=== PATIENT | female | born 1930 | race Caucasian/White ===

== ENCOUNTER → 2016-07-09 09:47 | Outpatient (CLI) | payer MEDICARE, BC ==
[2014-08-05 12:52] VITALS: BMI 23.7
[~2016-07-09 09:47] MED LIST: ALDACTONE25 MG PO; ATIVAN0.5 MG PO; ATIVAN1 MG PO; BAYER CHEWABLE81 MG PO; CATAPRES0.1 MG PO; CATAPRES0.2 MG PO; COUMADIN3 MG PO; COZAAR100 MG PO; COZAAR50 MG PO; ELIQUIS2.5 MG PO; FLAGYL 500500 MG/100 IV; FLAGYL500 MG PO; FLORAJEN3 CAPS460 MG PO; GEMFIBROZIL600 MG PO; HYDROCODON-ACE1 EAC7 PO; K-DUR20 MEQ PO; LANOXIN125 MCG PO; LASIX20 MG PO; LASIX40 MG PO; LOPRESSOR25 MG PO; MUCINEX600 MG PO; NORVASC10 MG PO; NORVASC2.5 MG PO; ONDANSETRON4 MG/2 M3 IV; PEPCID20 MG PO; SODIUM CL 0.91000 ML IV; TYLENOL W/CODEI1 TAB PO; VITAMIN D50000 UNIT PO; ZOFRAN4 MG PO; ZOLOFT50 MG PO; ZYLOPRIM100 MG PO
== END | disposition home or self-care (01) ==
LOC: D.CT 07-07 11:30
DX: R93.8 Abnormal findings on diagnostic imaging of other specified body structures (principal)

== ENCOUNTER 2016-07-18 10:29 | Inpatient (IN) | payer MEDICARE, BC ==
[~2016-07-18] VITALS: Ht 162.6 cm; Wt 59.8 kg
[2016-07-18] VITALS (14 sets, daily range): BP systolic 87–124; BP diastolic 32–88; BMI 22.3
[~2016-07-18 10:29] MED LIST changes: -ALDACTONE25 MG PO; -CATAPRES0.2 MG PO; -ELIQUIS2.5 MG PO; -FLAGYL 500500 MG/100 IV; -FLAGYL500 MG PO; -FLORAJEN3 CAPS460 MG PO; -HYDROCODON-ACE1 EAC7 PO; -LASIX20 MG PO; -MUCINEX600 MG PO; -NORVASC2.5 MG PO; -ONDANSETRON4 MG/2 M3 IV; -PEPCID20 MG PO; -SODIUM CL 0.91000 ML IV; -TYLENOL W/CODEI1 TAB PO; -ZOFRAN4 MG PO; -ZOLOFT50 MG PO
[2016-07-18 11:12] LABS: BASOPHILS 0.3 % (0.0-2.0); EOSINOPHILS 2.9 % (0-7); HEMATOCRIT 42.3 % (36.0-48.0); HEMOGLOBIN 14.1 g/dL (12-16); IMMATURE GRANULOCYTES 2.7 % (0-5); LYMPHOCYTES 19.7 % (15-50); MCH 32.3 pg (26.0-34.0); MCHC 33.3 g/dL (31.0-37.0); MEAN PLATELET VOLUME 10.6 fL (7.4-10.4); MONOCYTES 5.8 % (2-11); NEUTROPHILS 68.6 % (40-80); RBC 4.36 10x6/uL (4.00-5.40); RDW 14.6 % (11.5-14.5); WBC 14.8 10x3/uL (4.8-10.8)
[2016-07-18 11:15] LABS: PLATELET COUNT 407 10x3/uL (130-400)
[2016-07-18 11:39] LABS: APPEARANCE HAZY (CLEAR); COLOR YELLOW (YELLOW)
[2016-07-18 11:40] LABS: ALBUMIN 3.1 g/dL (3.4-5.0); ALKALINE PHOSPHATASE 144 U/L (46-116); ALT (SGPT) 19 U/L (10-68); AMYLASE - SERUM 127 U/L (25-115); BILIRUBIN - TOTAL 0.33 mg/dL (0.2-1.3); CALC OSMOLALITY 300 mosm/kg (275-300); CALCIUM 9.3 mg/dL (8.5-10.1); CARBON DIOXIDE 19.1 mmol/L (21.0-32.0); CHLORIDE - SERUM 95 mmol/L (98-107); CREATININE - SERUM 4.3 mg/dL (0.6-1.3); GLUCOSE 115 mg/dL (74-106); LIPASE 937 U/L (73-393); PROTEIN - SERUM 8.6 g/dL (6.4-8.2); SODIUM 129 mmol/L (136-145); UREA NITROGEN 126 mg/dL (7-18); eGFR NON AFRICAN AMERICAN 10 mL/min (90-120)
[2016-07-18 11:40] LABS: BILIRUBIN NEGATIVE (NEGATIVE); GLUCOSE NEGATIVE (NEGATIVE); KETONE NEGATIVE (NEGATIVE); LEUKOCYTE ESTERASE NEGATIVE (NEGATIVE); NITRITE NEGATIVE (NEGATIVE); PROTEIN 1+ mg/dL (NEGATIVE); SPECIFIC GRAVITY 1.015 (1.005-1.020); UROBILINOGEN NORMAL (NORMAL)
[2016-07-18 11:41] LABS: BACTERIA FEW /hpf (NONE SEEN); EPITHELIAL CELLS 0-5 /hpf (0-5); RED CELLS - URINE 0-5 /hpf (0-5); WHITE CELLS - URINE NSEEN /hpf (0-5); YEAST <1+ /hpf (NONE SEEN)
[2016-07-18 13:42] LABS: CREATINE KINASE 66 UL (21-215); MAGNESIUM - SERUM 2.8 mg/dL (1.8-2.4); PRO BNP 1531 pg/mL (0-450)
[2016-07-18 13:43] LABS: TROPONIN-I < 0.017 ng/mL (0.000-0.060)
[2016-07-18 13:45] LABS: INR 13.01 (0.85-1.17); PROTIME 101.6 SECONDS (11.6-15.0)
--- NOTE | 2016-07-18 14:34 | NUR ---
Patient Name: FRANK RUBIO Admission Status: ER Accout number: [id number] Admission Date: 07-18-2016 : 1928 Admission Diagnosis: Hyperkalemia,ARNOLD Attending: GABRIEL Current LOS: 5 Anticipated DC Date: 07/23/16 Planned Disposition: Return to [facility] with [facility] Primary Insurance: MEDICARE A & B Discharge Planning Comments: Cm met with patient to complete initial discharge planning assessment. Patient gave consent to complete assessment. Patient reports she lives at [facility]. She is independent in her care at home and has a golf cart she uses to get to and from the dining room for her meals. She does not use any assistive devices for ambulation at this time. She has a walker and cane that was her late husbands that she feels she may have to start using. Patient is currently using [facility] and would like this resumed at discharge. Patient plans to return to [facility] at discharge. CM will continue to follow and assist with dc plan/needs. Lockstitcher: Judith Araya RN, [facility] [phone] Is the patient Alert and Oriented? Yes * How many steps to enter\exit or inside your home? 0 * PCP Dr. Girard * Pharmacy [facility] * Preadmission Environment Assisted Living * Facility Name [facility] * ADLs Independent * Equipment Cane Rolling Walker * List name and contact numbers for known caregivers / representatives who currently or will assist patient after discharge: Murali orta - [phone] or [phone] * Community resources currently utilized Home Health * Please name any agencies selected above. [facility] * Additional services required to return to the preadmission environment? No * Can the patient safely return to the preadmission environment? Yes * Has this patient been hospitalized within the prior 30 days at any hospital? No
--- NOTE | 2016-07-18 14:53 | NUR ---
PT ARRIVED IN ROOM FROM ER VIA STRETCHER. ASSISTED OVER TO BED AND PLACED ON ICU MONITORS. PT IN CONTROLLED A-FIB RATE 57. PT ORIENTED TO ROOM AND CALL LIGHT. ASSESSMENT COMPLETED. VSS AT THIS TIME. BED ALARM ON. BILATERAL SCDs APPLIED TO LOWER EXT.
[2016-07-18] MEDS ORDERED: GEMFIBROZIL600 MG PO (15:43)
[2016-07-18] MEDS ORDERED: CATAPRES0.2 MG PO (15:46)
[2016-07-18] MEDS ORDERED: NORVASC10 MG PO (15:50)
[2016-07-18] MEDS ORDERED: ALDACTONE25 MG PO (15:51)
[2016-07-18] MEDS ORDERED: TYLENOL W/CODEI1 TAB PO (15:52)
--- NOTE | 2016-07-18 16:33 | NUR ---
PT UP TO BEDSIDE COMMODE. VOIDED WITHOUT DIFFICULTY.
--- NOTE | 2016-07-18 16:41 | NUR ---
NOTIFIED DR. STRINGER OF CONSULT. NO NEW ORDERS RECEIVED. HE STATES HE WILL COME LATER TODAY TO READ THE ECHO AND TO CALL WITH ANY CARDIAC CHANGES.
[2016-07-18 17:10] LABS: CREATININE - URINE 30.8 mg/dL (30-125); PROTEIN - URINE 36.7 mg/dL (0.0-11.9)
--- NOTE | 2016-07-18 17:31 | NUR ---
PAGED DR. MATAMOROS FOR RENAL CONSULT FOR SECOND TIME.
[2016-07-18 17:44] LABS: ANION GAP 19.7 mmol/L (8-16); CARBON DIOXIDE 18.8 mmol/L (21.0-32.0); CREATININE - SERUM 3.9 mg/dL (0.6-1.3)
[2016-07-18 17:53] LABS: POTASSIUM - SERUM 6.5 mmol/L (3.5-5.1)
--- NOTE | 2016-07-18 19:00 | NUR ---
REPORT RECIEVED, INITIAL ASSESSMENT COMPLETE, PLEASE SEE FLOW SHEETS FOR DETAILS. LUNG SOUNDS CLEAR. S1S2 AUSCULTATED, NRS NOTED. BOWEL SOUNDS ACTIVE X4 QUADRANTS. PPP. GETS UP TO CAMODE WITH ASSISTANCE. WEARING GLASSES. A&O X4. DENIES PAIN/NEEDS ATT. VSS, BED LOW AND LOCKED, CALL LIGHT IN REACH. SCD'S ON AND RUNNING. WILL CONTINUE TO MONITOR.
--- NOTE | 2016-07-18 20:45 | NUR ---
DR MATAMOROS ON UNIT, NEW ERS RECIEVED. WILL CONTINUE TO MONITOR.
--- NOTE | 2016-07-18 21:15 | NUR ---
PT USED BEDPAN, HAD A DIARRHEA EPISODE AND URINATED. VSS ATT, BED LOW AND LOCKED WITH CALL LIGHT IN REACH. WILL CONTINUE TO MONITOR.
--- NOTE | 2016-07-18 22:12 | NUR ---
PT GOT UP TO BEDSIDE CAMODE. A FULL LINEN CHANGE WAS PROVIDED. ALSO WHILE PT ON CAMODE DID FULL SPONGE BATH WITH ASSISTANCE. HAD LARGE DIARRHEA STOOL. APPROX 1500ML. WITH LITTLE ASSISTANCE BACK TO BED. PT TIRED. LIGHTS TURNED DOWN. BED LOW AND LOCKED. CALL LIGHT IN REACH. VSS, WILL CONTINUE TO MONITOR.
--- NOTE | 2016-07-18 22:43 | NUR ---
Spoke with granddaughter that provided password and gave update.
--- NOTE | 2016-07-18 23:00 | NUR ---
REASSESSMENT COMPLETE, PLEASE SEE FLOW SHEETS FOR DETAILS. NO CHANGES NOTED. VSS, BED LOW AND LOCKED, CALL LIGHT IN REACH. WILL CONTINUE TO MONITOR.
[2016-07-19] VITALS (24 sets, daily range): BP systolic 83–143; BP diastolic 37–89; Ht 162.6 cm; Wt 59.8 kg
--- NOTE | 2016-07-19 01:07 | NUR ---
Patient resting. No S&S of acute distress noted. VSS, bed low and locked, call light in reach. Will continue to monitor.
--- NOTE | 2016-07-19 03:00 | NUR ---
REASSESSMENT COMPLETE, PLEASE SEE FLOW SHEETS FOR DETAILS. PT, WITH MINIMAL ASSISTANCE, UP TO BEDSIDE CAMODE. LARGE DIARRHEA BM APPROX. 400ML. BACK TO BED WITH MINIMAL ASSISTANCE. DENIES PAIN/NEEDS ATT. VSS, BED LOW AND LOCKED, CALL LIGHT IN REACH. WILL CONTINUE TO MONITOR.
[2016-07-19 04:07] LABS: BASOPHILS 0.2 % (0.0-2.0); HEMATOCRIT 36.8 % (36.0-48.0); IMMATURE GRANULOCYTES 1.7 % (0-5); LYMPHOCYTES 9.9 % (15-50); MCH 31.3 pg (26.0-34.0); MCHC 32.6 g/dL (31.0-37.0); MCV 96.1 fL (80.0-100.0); MEAN PLATELET VOLUME 10.3 fL (7.4-10.4); MONOCYTES 6.8 % (2-11); NEUTROPHILS 79.4 % (40-80); RBC 3.83 10x6/uL (4.00-5.40); RDW 14.7 % (11.5-14.5)
[2016-07-19 04:10] LABS: PLATELET COUNT 302 10x3/uL (130-400); WBC 10.7 10x3/uL (4.8-10.8)
[2016-07-19 04:34] LABS: ALBUMIN 2.7 g/dL (3.4-5.0); ANION GAP 17.3 mmol/L (8-16); BILIRUBIN - TOTAL 0.2 mg/dL (0.2-1.3); CALCIUM 9.2 mg/dL (8.5-10.1); CARBON DIOXIDE 23.3 mmol/L (21.0-32.0); CREATININE - SERUM 3.1 mg/dL (0.6-1.3); POTASSIUM - SERUM 4.6 mmol/L (3.5-5.1); PROTEIN - SERUM 6.8 g/dL (6.4-8.2)
--- NOTE | 2016-07-19 05:00 | NUR ---
PT RESTING. NO S&S OF ACUTE DISTRESS NOTED. VSS, BED LOW AND LOCKED, CALL LIGHT IN REACH. WILL CONTINUE TO MONITOR.
[2016-07-19 07:18] LABS: APTT 171.9 SECONDS (22.8-39.4); INR 15.93 (0.85-1.17); PROTIME 119.4 SECONDS (11.6-15.0)
--- NOTE | 2016-07-19 08:15 | NUR ---
PT SITTING UP IN BED EATING BREAKFAST. PT IS ALERT AND CONVERSANT. DENIES NEEDS AT THIS TIME. AWAITING ON ORAL VITAMIN K FROM PHARMACY TO GIVE TO PATIENT.
--- NOTE | 2016-07-19 08:50 | NUR ---
PT ASSISTED UP TO BEDSIDE TOILET. MINIMAL ASSIST REQUIRED. PT HAD SMALL AMOUNT OF DIARRHEA WITH URINATION.
--- NOTE | 2016-07-19 09:15 | NUR ---
FAMILY AT BEDSIDE. PT AWAKE AND CONVERSANT. ASKS TO HAVE PILLOW PLACED AT BACK TO SUPPORT HIPS.
--- NOTE | 2016-07-19 11:55 | NUR ---
PT ASSISTED UP TO TOILET AT BEDSIDE. THEN TRANSFERRED TO CHAIR AT BEDSIDE FOR LUNCH.
--- NOTE | 2016-07-19 12:30 | NUR ---
PT ASSISTED BACK TO BED FROM CHAIR. ATE ABOUT 40% OF LUNCH TRAY.
--- NOTE | 2016-07-19 12:31 | NUR ---
REPORTING CONSULTANT HERE TO DRAW PT, INR
--- NOTE | 2016-07-19 12:47 | NUR ---
PT HAS STARTED TO EXHIBIT SIGNS OF PVC'S. WILL ALERT DR MARR WHEN SPEAK TO HIM REGARDING PT/INR RESULTS.
[2016-07-19 13:14] LABS: APTT 71.6 SECONDS (22.8-39.4); INR 5.76 (0.85-1.17); PROTIME 52.9 SECONDS (11.6-15.0)
--- NOTE | 2016-07-19 13:17 | NUR ---
CALLED DR MARR OFFICE. SPOKE WITH SUKUMAR. GAVE HER RECENT PT/INR AND PTT RESULTS. ALSO ASKED HER TO PLEASE LET HIM KNOW THAT THE PT HAS STARTED HAVING PVC'S.
--- NOTE | 2016-07-19 13:46 | NUR ---
PT SLEEPING ON HER RIGHT SIDE. NO DISTRESS NOTED. WILL CONTINUE TO MONITOR. BED LOW. SIDE RAILS X2. CALL LIGHT IN REACH.
--- NOTE | 2016-07-19 13:54 | NUR ---
SPOKE WITH DR MARR ON PHONE REGARDING LAB AND PVC'S. IF PT CONTINUES TO HAVE AND ARE MORE THAN OCCASSIONAL, WANTS METOPROLOL STARTED AT 25MG BID. DR MATAMOROS HAS BEEN IN TO SEE PT. CHANGED D5 WITH BICARB TO 1/2NS AT 100ML/HR.
--- NOTE | 2016-07-19 17:03 | NUR ---
PT ASSISTED UP TO CHAIR AT BEDSIDE PER REQUEST. C/O FEELING TIRED AND WEAK. DINNER TRAY SET UP REQUESTED. DENIES ANY OTHER NEEDS AT THIS TIME. CALL LIGHT IN REACH.
--- NOTE | 2016-07-19 17:45 | NUR ---
PT ASSISTED UP TO TOILET. UNABLE TO GET URINE SPECIMEN DUE TO FECES CONTAMINATION.
--- NOTE | 2016-07-19 19:30 | NUR ---
REPORT RECEIVED AND CARE ASSUMED. INITIAL SHIFT ASSESSMENT PER FLOWSHEET. PT RESTING QUIETLY IN BED. ABLE TO MAKE NEEDS KNOWN. IS WEARING AN INCONTINENCE BRIEF BUT IS CONTINENT. UP TO BSC WITH MINIMAL ASSIST. BEING MONITORED PER STANDARD ICU PROTOCOL WITH ALL ALARMS SET. IVF AND LINES APPROPRIATLY DATED AND LABELED. BED IN LOW POSITION AND CALL LIGHT IN REACH
--- NOTE | 2016-07-19 20:50 | NUR ---
CALL RECEIVED FROM PT'S [id number], CARLOS, PASSWORD VERIFIED. UPDATE GIVEN AND QUESTIONS ANSWERED.
--- NOTE | 2016-07-19 21:15 | NUR ---
CALL PLACED TO DAUGHTER, RAD, PER REQUEST OF PT WHO IS VERY CONCERNED ABOUT HER WELL BEING SINCE RAD DID NOT COME FOR VISITATION. DAUGHTER CONFIRMED ALL IS WELL AND MESSAGE CONVEYED TO PT WHO EXPRESSED RELIEF AND THEN WENT BACK TO SLEEP. PT HAS BEEN SLEEPING MUCH OF THIS SHIFT
--- NOTE | 2016-07-19 23:00 | NUR ---
SHIFT REASSESSMENT COMPLETED SEE FLOWSHEET. PT LIGHTLY SLEEPING. ASSISTED PT WITH REPOSITIONING. NO OTHER REQUESTS.
[2016-07-20] VITALS (11 sets, daily range): BP systolic 109–150; BP diastolic 48–64
--- NOTE | 2016-07-20 01:00 | NUR ---
PT SLEEPING RESP REG AND NON-LABORED.
--- NOTE | 2016-07-20 03:00 | NUR ---
REASSESSMENT COMPLETE, NO CHANGES NOTED, PT RESTING AT THIS TIME, VSS, CALL LIGHT IN REACH
[2016-07-20 04:37] LABS: BASOPHILS 0.2 % (0.0-2.0); EOSINOPHILS 2.3 % (0-7); HEMATOCRIT 34.8 % (36.0-48.0); HEMOGLOBIN 11.1 g/dL (12-16); IMMATURE GRANULOCYTES 1.5 % (0-5); LYMPHOCYTES 17.8 % (15-50); MCH 30.7 pg (26.0-34.0); MCHC 31.9 g/dL (31.0-37.0); MCV 96.1 fL (80.0-100.0); MEAN PLATELET VOLUME 10.2 fL (7.4-10.4); MONOCYTES 7.7 % (2-11); NEUTROPHILS 70.5 % (40-80); PLATELET COUNT 257 10x3/uL (130-400); RBC 3.62 10x6/uL (4.00-5.40); RDW 14.1 % (11.5-14.5); WBC 10.3 10x3/uL (4.8-10.8)
[2016-07-20 04:58] LABS: ALBUMIN 2.6 g/dL (3.4-5.0); ANION GAP 14.7 mmol/L (8-16); BILIRUBIN - TOTAL 0.45 mg/dL (0.2-1.3); CALCIUM 8.7 mg/dL (8.5-10.1); CARBON DIOXIDE 24.1 mmol/L (21.0-32.0); PROTEIN - SERUM 6.5 g/dL (6.4-8.2)
[2016-07-20 05:02] LABS: CREATININE - SERUM 1.6 mg/dL (0.6-1.3); POTASSIUM - SERUM 3.8 mmol/L (3.5-5.1)
--- NOTE | 2016-07-20 06:32 | NUR ---
PT C/O OF NAUSEA, ORDERED ZOFRAN GIVEN
--- NOTE | 2016-07-20 07:00 | NUR ---
PT REPORT REC'D, PT CARE ASSUMED. PT RESTING WITH EYES CLOSED, NO C/O PAIN. VSS, AFIB CONTROLLED. RIGHT AC PIV WITH FLUIDS INFUSING, SEE FLOW SHEET. SHIFT ASSESSMENT COMPLETED, SEE FLOW SHEET. ROOM FREE OF CLUTTER, CALL LIGHT IN REACH. WILL CONTINUE TO MONITOR PT.
[2016-07-20 07:44] LABS: INR 1.47 (0.85-1.17); PROTIME 17.8 SECONDS (11.6-15.0)
--- NOTE | 2016-07-20 07:56 | NUR ---
DR. PERERA AT THE BEDSIDE, VSS, ALL QUESTIONS ANSWERED, WILL CONTINUE TO MONITOR PT.
--- NOTE | 2016-07-20 08:59 | NUR ---
SPOKE WITH PATIENT ABOUT DISCHARGE PLANS. SHE STATES THAT DR. MARTINEZ TOLD HER SHE COULD NOT STAY BY HERSELF ANY LONGER. SHE STATE THAT HE FEELS THAT SHE MAY HAVE TAKEN TO MUCH MEDICATION. PATIENT STATES SHE WANTS TO RETURN TO [facility]. SHE HAD [facility]. SHE STATES SHE WANTS TO GET SOMEONE TO OVERSEE HER MEDICATION. SHE DOES NOT WANT TO GO TO A SNF. PATIENT STATES HER DAUGHTER, RAD MITCHELL, WILL VISIT TODAY AND SHE WANTS TO SPEAK WITH HER ABOUT WHAT THEY CAN DO. I WILL ATTEMPT TO VISIT WITH HER DAUGHTER TODAY WHEN SHE COMES. DAUGHTER: RAD [phone] SON: GEN [phone] CM TO FOLLOW.
--- NOTE | 2016-07-20 09:15 | NUR ---
PT FAMILY AT THE BEDSIDE, ALL QUESTIONS ANSWERED, VSS. PT FAMILY REQUESTING THAT WE CALL DR. PERERA INFORMING HIM THAT THEY "FEEL THAT PT IS NOT ABLE TO DRIVE ANYMORE, PT WILL NOT LISTEN TO FAMILY, THEY WANT TO TELL PT THAT SHE DOES NOT NEED TO DRIVE." WILL INFORM DR. WOOD. NO FURTHER QUESTIONS OR CONCERNS. SRRN
--- NOTE | 2016-07-20 10:11 | NUR ---
CALLED 'S OFFICE, INFORMED DR. MARTINEZ OF PT'S FAMILY'S REQUEST. "WILL INFORM PT THAT SHE DOES NOT NEED TO DRIVE."-. INFORMED DR. MARTINEZ THAT PT WILL BE TRANSFERRING TO ROOM 1206.
--- NOTE | 2016-07-20 10:16 | NUR ---
I MET WITH PATIENT AND HER 3 CHILDREN. THEY UNDERSTAND THAT SHE WILL NEED ADDITIONAL SUPERVISION WITH HER MEDICATION. THEY WERE GIVEN INFORMATION ON AGENCY SITTERS TO ASSIST HER WITH HER MEDICATION ADMINISTRATION. THEY ASSURED ME THAT THEY WILL HIRE HELP TO ASSIST HER NEEDED. PATIENT WANTS TO RETURN TO [facility]. HER CHILDREN WANT HER TO RETURN THERE WITH ASSISTANCE. THEY TELL ME THAT SHE IS INDEPENDENT AND JUST NEEDS HELP WITH MEDICATION. THEY DONOT FEEL SHE NEEDS TO BE DRIVING AND WOULD LIKE FOR DR. MARTINEZ TO ADDRESS WITH HER. PATIENT IS MOVING TO FLOOR BED TODAY AND CM WILL FOLLOW.
--- NOTE | 2016-07-20 10:34 | NUR ---
PT REPORT CALLED TO EDUAR LI, PT TO TRANSFER VIA WHEELCHAIR TO ROOM 2138.
--- NOTE | 2016-07-20 10:51 | NUR ---
RECEIVED PATIENT REPORT FROM ICU. PATIENT TO ROOM VIA WC. PT HERE TO WALK PATIENT IN HALLWAY. PATIENT TOLERATED WELL.
--- NOTE | 2016-07-20 10:58 | NUR ---
TRANSFER VS 142/60 O2 98 P-67 T 97.3 R 24.
--- NOTE | 2016-07-20 12:32 | NUR ---
PT C/O BACK PAIN. STATES IT IS FROM LAYING IN BED. DECLINES NURSES OFFER TO CALL DR. MARTINEZ FOR PAIN MED ORDER. PT TAKES TYLENOL 3 AT HOME PRN. NURSE PLACED WARM BLANKET TO PT'S LOWER BACK. WILL CONT. TO MONITOR. PT DOES NOT WISH TO SIT UP IN CHAIR AT THIS TIME. CALL LIGHT WITH IN REACH. WILL CONT. TO MONITOR.
--- NOTE | 2016-07-20 15:49 | NUR ---
PT WITH DIARRHEA X2. DENIES NAUSEA AT THIS TIME. DENIES ABD PAIN. C/O GAS. WILL CONT. TO MONITOR.
--- NOTE | 2016-07-20 16:34 | NUR ---
PT'S IV LEAKING AND HAS CAME OUT. THIS NURSE ATTEMPTED TO RE-SITE TO LEFT ARM X2 AND WAS UNABLE. [place] RN TO ATTEMPT.
--- NOTE | 2016-07-20 18:18 | NUR ---
PT'S IV RE-SITED BY [place] LI WITH 24G TO LEFT HAND/THUMB. IVF SLOWED TO 50ML/HR TO ALLOW FOR SMALLER GAUGE CATH.
--- NOTE | 2016-07-20 19:30 | NUR ---
IN BED, AWAKE, ALERT, VOICES NO C/O PAIN AT THIS TIME. HOB UP SR UP X2, C/L IN REACH. UP WITH ASSIST TO BR, AMANDA WELL. LEFT THUMB IV SITE WITH 1/2 NS AT 50CC/HR VIA PUMP W/O DIFF. ON ROOM AIR, RESP UNLAB, TELEMETRY IN PLACE SHOWING HR SB. CONTINUE TO MONITOR. SCDS IN PLACE BILAT.
[2016-07-21] VITALS (7 sets, daily range): BP systolic 118–156; BP diastolic 40–66
--- NOTE | 2016-07-21 01:55 | NUR ---
EYES CLOSED, RESP UNLAB WITH NO S/S OF ACUTE DISTRESS NOTED. C/L IN REACH. CONTINUE TO MONITOR.
[2016-07-21 06:15] LABS: BASOPHILS 0.3 % (0.0-2.0); EOSINOPHILS 2.4 % (0-7); HEMATOCRIT 32.5 % (36.0-48.0); HEMOGLOBIN 10.4 g/dL (12-16); IMMATURE GRANULOCYTES 1.5 % (0-5); LYMPHOCYTES 13.8 % (15-50); MEAN PLATELET VOLUME 10.1 fL (7.4-10.4); PLATELET COUNT 242 10x3/uL (130-400); RBC 3.35 10x6/uL (4.00-5.40); RDW 13.9 % (11.5-14.5); WBC 9.3 10x3/uL (4.8-10.8)
[2016-07-21 06:29] LABS: ANION GAP 14.1 mmol/L (8-16); CALCIUM 8.4 mg/dL (8.5-10.1); CARBON DIOXIDE 22.4 mmol/L (21.0-32.0); MAGNESIUM - SERUM 1.6 mg/dL (1.8-2.4); POTASSIUM - SERUM 3.5 mmol/L (3.5-5.1)
[2016-07-21 06:50] LABS: INR 1.35 (0.85-1.17); PROTIME 16.6 SECONDS (11.6-15.0)
--- NOTE | 2016-07-21 07:40 | NUR ---
AM ROUNDING DONE WITH PATIENT LAYING ON RIGHT SIDE APPEARS TO BE SLEEPING. RESP ARE EVEN AND NON LABORED. FAMILY AT BEDSIDE AWAITING DR PERERA PER THEIR REPORT. ON HEART MONITOR SHOWING CAF, HR 65.LEFT THUMB IV OF 1/2 NS INFUSING AT 50 CC/HR. ON ROOM AIR. WILL CONTINUE TO MONITOR.
--- NOTE | 2016-07-21 08:41 | NUR ---
0810-ASSISTED PATIENT TO RESTROOM TO VOID, SOME DIARREHA. NO HAT IN TOLIET TO COLLECT SAMPLE, WILL PLACE ONE. ASSISTED BACK TO BED. DENIES ANY FURTHER NEEDS. 0826-COMPLAINTS OF NAUSEA PER FAMILY MEMBER. ZOFRAN GIVEN SLOW IVP. 0840-TO RADIOLOGY VIA WHEELCHAIR.
--- NOTE | 2016-07-21 08:52 | NUR ---
RETURNS FROM RADIOLOGY.
--- NOTE | 2016-07-21 09:21 | NUR ---
STOOL SENT TO LAB ORDERED.
--- NOTE | 2016-07-21 10:24 | NUR ---
INSTRUCTED TO PATIENT AND FAMILY MEMBERS THAT IF STOOL IS + FOR CDT, WILL BE PLACED IN ENTERIC ISOLATION, GOWN AND GLOVE, SOAP AND WATER HANDWASHING.
--- NOTE | 2016-07-21 13:15 | NUR ---
STILL PENDING ON RESULTS FROM STOOL. WILL INFORM FAMILY AND PATIENT WHEN RESUTLS IN, THIS IS AGAIN PASSED TO THE FAMILY.
--- NOTE | 2016-07-21 14:43 | NUR ---
CDT STILL PENDING. CALLED AND TALKED TO DOLORES IN ULTRASOUND TO SEE HOW MUCH LONGER BEFORE TEST CAN BE DONE. SHE SAID THAT SHE WAS DOWN FOR 4 BUT WOULD TRY AND MAKE IT SOONER. 1448-EMERGENCY LIGHT GOING OFF IN BATHROOM. WENT INTO ROOM AND PATIENT IS IN BATHROOM ON TOLIET. I ASKED HER HELPED HER TO THE RESTROOM AND SHE SAID SHE DID IT HERSLEF. I ASKED HER TO PLEASE USE HER CALL LIGHT FOR ASSISTANCE.
--- NOTE | 2016-07-21 15:29 | NUR ---
LAB TO CALL WITH + CULTURE ON CDT STOOL. PATIENT NOTIFIED AND PLACED IN ENTERIC ISOLATION.
--- NOTE | 2016-07-21 18:33 | NUR ---
DR PERERA TO CALL WITH NEW ORDERS.
--- NOTE | 2016-07-21 19:40 | NUR ---
PT LYING IN BED AWAKE, ASSESSMENT COMPLETED, NO ACUTE DISTRESS NOTED, DENIES NEEDS AT THIS TIME, SR'S UP, CL IN REACH, WILL MONITOR
--- NOTE | 2016-07-21 23:26 | NUR ---
LYING IN BED AWAKE, NO DISTRESS NOTED, SAFETY AND CONTACT PRECAUTIONS IN PLACE, CL IN REACH
[2016-07-22] VITALS: BP 132/57
--- NOTE | 2016-07-22 01:10 | NUR ---
RESTING WITH EYES CLOSED, RESP WITH EASE, NO ACUTE DISTRESS NOTED, SR'S UP, CL IN REACH
[2016-07-22 04:00] VITALS: BP 140/50
[2016-07-22 04:55] LABS: BASOPHILS 0.2 % (0.0-2.0); EOSINOPHILS 1.9 % (0-7); HEMATOCRIT 33.4 % (36.0-48.0); HEMOGLOBIN 10.6 g/dL (12-16); IMMATURE GRANULOCYTES 1.3 % (0-5); LYMPHOCYTES 12.4 % (15-50); MCH 30.5 pg (26.0-34.0); MCHC 31.7 g/dL (31.0-37.0); MCV 96.3 fL (80.0-100.0); MEAN PLATELET VOLUME 9.9 fL (7.4-10.4); MONOCYTES 7.1 % (2-11); NEUTROPHILS 77.1 % (40-80); PLATELET COUNT 283 10x3/uL (130-400); RBC 3.47 10x6/uL (4.00-5.40); RDW 13.8 % (11.5-14.5); WBC 10.3 10x3/uL (4.8-10.8)
[2016-07-22 05:20] LABS: ALBUMIN 2.7 g/dL (3.4-5.0); ANION GAP 13.8 mmol/L (8-16); BILIRUBIN - TOTAL 0.5 mg/dL (0.2-1.3); CALCIUM 8.6 mg/dL (8.5-10.1); CARBON DIOXIDE 22.8 mmol/L (21.0-32.0); MAGNESIUM - SERUM 1.6 mg/dL (1.8-2.4); PHOSPHOROUS 1.7 mg/dL (2.5-4.9); POTASSIUM - SERUM 3.6 mmol/L (3.5-5.1); PROTEIN - SERUM 6.4 g/dL (6.4-8.2)
--- NOTE | 2016-07-22 07:37 | NUR ---
IN ENTERIC ISOLATION. RESTING WITH EYES CLOSED ON RIGHT SIDE. RESP ARE EVEN AND NON LABORED. WILL CONTINUE TO FOLLOW.
[2016-07-22 07:49] VITALS: BP 126/43
--- NOTE | 2016-07-22 09:40 | NUR ---
IVOUT TO LEFT THUMB, RE-STIED TO LEFT HAND WITH 24 G X 1 STICK.
[2016-07-22 12:36] VITALS: BP 144/66
--- NOTE | 2016-07-22 12:41 | NUR ---
ASSISTED BACK TO BED FROM RESTROOM. PATIENT HAS BEEN SITTING UP SINCE LUNCH.
--- NOTE | 2016-07-22 14:16 | NUR ---
Nutrition follow-up: Diet: Renal ADA consistent CHO PO intake 25-50% of meals Labs reviewed Wt: 130# PT C.Diff + PO intake is poor at this time. RDN will order Nepro with meals to increase kcal/protein intake Following.
--- NOTE | 2016-07-22 15:25 | NUR ---
1325-CALLED DR PERERA OFFICE, SPOKE WITH DR PERERA AND RECEIVED NEW ORDERS.
[2016-07-22 16:21] VITALS: BP 151/57
--- NOTE | 2016-07-22 16:34 | NUR ---
VERBAL AND WRITTEN DISCHARGE INSTRUCTIONS GIVEN TO PATIENT AND SPOUSE. SALINE LOCK REMOVED WITH CATH TIP INTACT. DISCHARGED HOME ON PORTABLE OXYGEN TANK FROM HOME.
--- NOTE | 2016-07-22 18:21 | NUR ---
RESTING ON LEFT SIDE, APPEARS PAIN FREE. FAMILY MEMBER AT BEDSIDE, STILL IN ENTERIC ISOLATION.
[2016-07-22 20:00] VITALS: BP 126/53
--- NOTE | 2016-07-22 22:21 | NUR ---
ASSESSED AT THE BEGINNING OF THIS SHIFT. PT IS ALERT AND ORIENTED, ABLE TO VERBALIZE NEEDS. SHE IS ABLE TO GET UP TO THE BATHROOM WITH MINIMAL ASSIST AND WAS ABLE TO TAKE SOME MEDS FOR REST, WHICH SHE REQUESTED. SHE REMAINS IN ISOLATION FOR C-DIFF AND STATES SHE IS STILL HAVING LOOSE STOOL. SOME REDNESS TO HER BOTTOME FROM THE RED STOOL, BUT WE ARE USING MILTON'S BUTT PASTER. THE BED IS LOW, RAILS UP X;S 3 WITH THE CALLL LIGHT AT HAND LONG.
[2016-07-23] VITALS: BP 134/52
[2016-07-23 04:00] VITALS: BP 116/39
--- NOTE | 2016-07-23 04:10 | NUR ---
WE HAVE ASSISTED HER UP TO VOID FREQUENTLY IN THE BATHROOM. SHE IS ALERT AND ORIENTED.
[2016-07-23 06:19] LABS: BASOPHILS 0.2 % (0.0-2.0); EOSINOPHILS 3.6 % (0-7); HEMATOCRIT 30.5 % (36.0-48.0); HEMOGLOBIN 9.8 g/dL (12-16); IMMATURE GRANULOCYTES 1.3 % (0-5); LYMPHOCYTES 11.9 % (15-50); MCH 30.9 pg (26.0-34.0); MCHC 32.1 g/dL (31.0-37.0); MCV 96.2 fL (80.0-100.0); MEAN PLATELET VOLUME 9.7 fL (7.4-10.4); MONOCYTES 8.1 % (2-11); NEUTROPHILS 74.9 % (40-80); PLATELET COUNT 259 10x3/uL (130-400); RBC 3.17 10x6/uL (4.00-5.40); RDW 13.8 % (11.5-14.5); WBC 9.3 10x3/uL (4.8-10.8)
[2016-07-23 06:42] LABS: ANION GAP 14.4 mmol/L (8-16); CALCIUM 7.9 mg/dL (8.5-10.1); CARBON DIOXIDE 21.9 mmol/L (21.0-32.0); MAGNESIUM - SERUM 1.7 mg/dL (1.8-2.4); PHOSPHOROUS 1.7 mg/dL (2.5-4.9); POTASSIUM - SERUM 3.3 mmol/L (3.5-5.1)
[2016-07-23 08:13] VITALS: BP 140/50
--- NOTE | 2016-07-23 09:23 | NUR ---
LABS REVIEWD AND ELECTROLYTES REPLACED PER PROTOCOL PT AMBULATED WITH PT IN HALLS APPX 300FT WITH NO ASSITANCE NEEDED WILL MONITOR
--- NOTE | 2016-07-23 10:12 | NUR ---
MONITOR TWECH NOTIFIED THAT HR WAS 35 AND INCREASED TO 40 DR FRIAS PAGED TO NOTIFY OF HR
--- NOTE | 2016-07-23 10:33 | NUR ---
PT ASSESSMENT COMPLETED PT LABS REVIEWED AND K+ MAG AND PHOS ADMIN PER PROTOCOL FOR VALUES NEEDING COVERAGE. PT AMBULATED WITH PT AND PT SIGNED OFF NO DISTRESS OBSERVED CALL LIGHT IN REACH SRX2 BED LOW AND LOCKED WILL MONITOR
--- NOTE | 2016-07-23 11:50 | NUR ---
HELD DIGOXION AT THIS TIME HR 45 WILL MONITOR RECIVED NO CALL BACK FROM DR FRIAS FROM PRIOR PAGE PAGED X2
[2016-07-23 11:52] VITALS: BP 104/46
[2016-07-23] MEDS ORDERED: FLAGYL 500500 MG/100 IV (13:20)
[2016-07-23] MEDS ORDERED: FLORAJEN3 CAPS460 MG PO (13:21)
[2016-07-23] MEDS ORDERED: SODIUM CL 0.91000 ML IV (13:21)
[2016-07-23] MEDS ORDERED: ONDANSETRON4 MG/2 M3 IV (13:23)
[2016-07-23] MEDS ORDERED: FLAGYL500 MG PO (14:43)
[2016-07-23] MEDS ORDERED: ZOFRAN4 MG PO (14:44)
[2016-07-23] MEDS ORDERED: PEPCID20 MG PO (14:44)
[2016-07-23 16:15] VITALS: BP 131/53
--- NOTE | 2016-08-02 08:10 | DS ---
PATIENT:FRANK RUBIO :[birth year] MEDICAL RECORD: [id number] DISCHARGE SUMMARY ADMISSION DATE: 07/18/16 DISCHARGE DATE: 07/23/16 DATE OF ADMISSION: 07/18/2016 DATE OF DISCHARGE: 07/23/2016 ADMISSION DIAGNOSES: General fatigue, malaise, ill feeling sensation, Coumadin toxicity, Digoxin toxicity, bradycardia, electrolyte abnormalities, acute renal failure. DISCHARGE DIAGNOSES: Acute renal failure, hyperkalemia, Coumadin toxicity, Digoxin toxicity, bradycardia, electrolyte abnormalities, Clostridium difficile colitis. CONSULTS: Dr. Levine, cardiology. Dr. Melendez, nephrology. Dr. Florez, GI. HOSPITAL COURSE: The patient was admitted to the Emergency Room as above, admitted to the ICU. Vital Signs on admission, temperature 97.3 with heart rate 53, blood pressure 115/62, respirations 16, O2 sats 96%. LABORATORY DATA: Chemistry showed sodium of 129, chloride 95, bicarbonate 19.1, BUN 126, creatinine 4.3, glucose 115, AST 41, ALT 19, alkaline phosphatase 144. Amylase 127, lipase 937. CBC: White count 14.8, hemoglobin 14.1, hematocrit 42.3, platelets 407. ProBNP 1531. INR at 13.01. PT 101.6. Digoxin 2.23. The patient was admitted as above, consults made, cautious hydration, meds adjusted, developed persistent diarrhea, C. diff positive, was started on IV Flagyl. CT scan, no significant findings. She continued to improve. Changed to p.o. medications. Care plan in place, discussed with family, discharged. Arrangements made with rn case manager hospice. The patient discharged in significantly improved condition. Renal function normalizes. BUN 16, creatinine is 1.0 on discharge. MEDICATIONS: Per med rec. VITAL SIGNS ON DISCHARGE: Temperature 97.9, blood pressure is 116/39, heart rate 54, respirations 18, O2 sats 98% room air. Discussed care plan with the patient and family, all are in agreement. See chart for further details of this protracted complex case. Agree with assessments by specialist, appreciate their contribution. TRANSINT:[id number] Voice Confirmation ID: [id number] DOCUMENT ID: [id number] FELI PERERA DO at 0810 CC: [id number] DICTATION DATE: 08/01/16 1314 INSPECTOR AUTOMATIC TYPEWRITER: 08/02/16 0220 DIS IN 07/23/16 [facility] [address] [place] [address]
--- NOTE | 2016-08-10 08:17 | EC ---
PATIENT:FRANK RUBIO DATE OF SERVICE: 07/18/16 SEX: F MEDICAL RECORD: [id number] DATE OF : [birth year] LOCATION:D. D.213 AGE OF PATIENT: 86 ADMISSION DATE: 07/18/16 REFERRING PHYSICIAN: INTERPRETING PHYSICIAN: PURA LEVINE M.D. ECHOCARDIOGRAM REPORT ECHO CHARGES 4 ECHO COMPLETE CLINICAL DIAGNOSIS: ELEVATED BNP ECHOCARDIOGRAPHIC MEASUREMENTS (adult normal given) AC root (d.<3.7cm) 2.9 LV Septum d (<1.2 cm> 1.2 Valve Excursion 1.5 LV Septum (systole) 1.8 Left Atria (s.<4.0cm> 3.8 LVPW d(<1.2cm) 1.3 RV (d.<2.3cm) 2.6 LVPW (sytole) 2.0 LV diastole(<5.6CM) 4.5 MV E-F(>70mm/sec) LV systole 1.9 LVOT Diameter 1.5 MV exc.(>10mm) Est.ejection fraction (50-75%) Pericardial Effusion N DOPPLER: LVIT A E 135 LA RVSP 49.0 LVOT 116 AOP1/2T 872.0 Asc. Ao 205 RVOT 90.0 RA PA 151 AV Gradient Peak 17.0 AV Mean 8.2 AV Area 1.3 MV Gradient Peak 8.3 MV Mean 1.9 MV Area COMMENTS: Academic Tutor: Lamberto [employer] Camp Director:Juan Levine TAPE# PACS DATE OF SERVICE: 07/19/2016 REFERRING PHYSICIAN: Dr. Tsang. INDICATION: Congestive heart failure. DESCRIPTION: Left ventricle demonstrates left ventricular hypertrophy. No wall motion abnormalities are seen. Estimated ejection fraction is 55% to 60%. Mitral valve is structurally normal. There is mild regurgitation noted. Left atrium is normal in size. The aortic valve is trileaflet. There is mild ECHOCARDIOGRAM REPORT [id number] FRANK RUBIO insufficiency seen, but no evidence of stenosis. Right ventricle is mildly dilated. Tricuspid valve is structurally normal. There is mild regurgitation seen. Right ventricular systolic pressure is elevated at 49 mmHg. There is no pericardial effusion noted. IMPRESSION: 1. Left ventricular hypertrophy with preserved ejection fraction of 60%. 2. Moderate mitral regurgitation. 3. Moderate tricuspid regurgitation with elevated pulmonary pressures. TRANSINT:[id number] Voice Confirmation ID: [id number] DOCUMENT ID: [id number] PURA LEVINE M.D. at 0817 CC: [id number] DICTATION DATE: 07/19/1623 DAY CARE HOME PROVIDER: 07/19/1623 DIS IN 07/23/16 [place] [id number] [place] [id number]
== END 2016-07-23 17:56 | DRG 682 ==
LOC: D.ER 10:29 → D.ICU 14:15 → D.M2 14:15
PROVIDERS: Emergency Medicine; Family Medicine; Internal Medicine Cardiovascular Disease; Internal Medicine Nephrology; Nurse Practitioner Family; ADMIT Family Medicine
DX: N17.9 Acute kidney failure, unspecified (principal); K85.90 Acute pancreatitis without necrosis or infection, unspecified; A04.7 Enterocolitis due to Clostridium difficile; E87.5 Hyperkalemia; R00.1 Bradycardia, unspecified; T46.0X5A Adverse effect of cardiac-stimulant glycosides and drugs of similar action, initial encounter; T45.515A Adverse effect of anticoagulants, initial encounter; I11.0 Hypertensive heart disease with heart failure; I50.9 Heart failure, unspecified; I48.2 Chronic atrial fibrillation; E83.41 Hypermagnesemia

== ENCOUNTER 2016-07-23 17:15 | Inpatient (IN) | payer MEDICARE, BC ==
[~2016-07-23] VITALS: Ht 162.6 cm; Wt 61.2 kg
[~2016-07-23 17:15] MED LIST changes: +ALDACTONE25 MG PO; +CATAPRES0.2 MG PO; +FLAGYL 500500 MG/100 IV; +FLAGYL500 MG PO; +FLORAJEN3 CAPS460 MG PO; +ONDANSETRON4 MG/2 M3 IV; +PEPCID20 MG PO; +SODIUM CL 0.91000 ML IV; +TYLENOL W/CODEI1 TAB PO; +ZOFRAN4 MG PO
[2016-07-23 17:41] VITALS: BP 135/49; BMI 23.2
--- NOTE | 2016-07-23 17:41 | NUR ---
PT RECEIVED TO ROOM 1116 VIA WHEELCHAIR. ALERT AND WITH SON.
[2016-07-23 19:15] VITALS: BP 135/49
--- NOTE | 2016-07-23 20:10 | NUR ---
INTRODUCED MYSELF TO PT. AND ASKED IF PT. HAS ANY NEEDS. PT. REQUESTED ASSISTANCE TO BR TO VOID. PT. WALKED TO BR WITH MIN. ASSIST AND DENIES ANY DIZZINESS OR INCREASED WEAKNESS. PT. VOIDED AND REPORTED SINCE YESTERDAY'S BM THAT WAS VERY LARGE AND LIQUD, SHE HASN'T HAD ANY OTHER STOOLS, AND SHE SAID SHE DOESN'T EXPECT ANY MORE ANY TIME SOON SINCE THAT ONE YESTERDAY WAS SO LARGE. ASSESSMENT COMPLETED. CALL LIGHT WITHIN REACH.
--- NOTE | 2016-07-24 02:08 | NUR ---
PT. IN BED WITH HOB UP FOR COMFORT. TELEMETRY REMAINS IN PLACE WITHOUT PROBLEMS. EYES ARE CLOSED AND RESP. ARE DEEP AND EVEN. CALL LIGHT WITHIN REACH.
--- NOTE | 2016-07-24 05:42 | NUR ---
PT. IN BED WITH HOB UP FOR COMFORT LYING ON HER LEFT SIDE WITH EYES CLOSED AND RESP. EVEN. CALL LIGHT WITHIN REACH.
--- NOTE | 2016-07-24 07:30 | NUR ---
SLEEPING IN BED.
[2016-07-24 07:47] LABS: BASOPHILS 0.2 % (0.0-2.0); EOSINOPHILS 2.9 % (0-7); HEMATOCRIT 28.9 % (36.0-48.0); HEMOGLOBIN 9.4 g/dL (12-16); IMMATURE GRANULOCYTES 0.8 % (0-5); LYMPHOCYTES 13.8 % (15-50); MCH 31.3 pg (26.0-34.0); MCHC 32.5 g/dL (31.0-37.0); MCV 96.3 fL (80.0-100.0); MEAN PLATELET VOLUME 9.6 fL (7.4-10.4); MONOCYTES 8.4 % (2-11); NEUTROPHILS 73.9 % (40-80); PLATELET COUNT 236 10x3/uL (130-400); WBC 8.7 10x3/uL (4.8-10.8)
[2016-07-24 08:00] VITALS: BP 148/65
[2016-07-24 08:02] LABS: ANION GAP 12.5 mmol/L (8-16); CALCIUM 7.9 mg/dL (8.5-10.1); CARBON DIOXIDE 20.3 mmol/L (21.0-32.0); CREATININE - SERUM 0.9 mg/dL (0.6-1.3)
[2016-07-24 08:03] LABS: POTASSIUM - SERUM 3.8 mmol/L (3.5-5.1)
--- NOTE | 2016-07-24 08:12 | NUR ---
PATIENT IS ALERT/ORIENT X4. USING CALL LIGHT FOR NEEDS. VOICES NO NEEDS AT THIS TIME.
--- NOTE | 2016-07-24 08:14 | NUR ---
PATIENT REMAINS IN ISOLATION FOR C-DIFF. PATIENT IS ALERT/ORIENT X4. USING CALL LIGHT FOR NEEDS.
[2016-07-24 09:17] VITALS: Ht 162.6 cm; Wt 61.2 kg
--- NOTE | 2016-07-24 10:00 | NUR ---
PATIENT IN REHAB ROOM. WORKING WITH PHYSICAL THERAPIST. ISOLOATION PRECAUSIONS MAINTAINED WHEN PATIENT IN REHAB. DENIES ANY PAIN/DISC AT THIS TIME
--- NOTE | 2016-07-24 11:24 | NUR ---
PATIENT HAD DIFFICULTY SWALLOWING MEDICATION. CONSULT FOR SPEECH THERAPY IN COMPUTER.
--- NOTE | 2016-07-24 14:01 | NUR ---
PATIENT HAS VISITORS IN ROOM. ISOLATION PRECAUSIONS TAKEN WHEN VISITORS IN ROOM
--- NOTE | 2016-07-24 16:40 | NUR ---
PRN ATIVAN GIVEN FOR ANXIETY.
--- NOTE | 2016-07-24 19:30 | NUR ---
VISITORS PRESENT, PT STATES HE KNEES WERE STARTING TO ACHE BECAUSE OF WEATHER CHANGE, PT DENIED NEED FOR ANY MEDICATION AT THIS TIME.. PT SITTING UP IN CHAIR. VITAL SIGNS OBTAINED.
[2016-07-24 19:34] VITALS: BP 135/54
--- NOTE | 2016-07-24 20:15 | NUR ---
PT REQUESTED PAIN MEDICATION FOR ACHY AND THROBBING KNEES. PT DENIES HAVE ANY STOOL THIS EVENING.
--- NOTE | 2016-07-25 01:10 | NUR ---
PT TEARFUL AND COULDN'T GET COMFORTABLE, STATING HER KNEES WERE ACHING SEVERLY, REPOSITIONED, ADMINISTERED TYLENOL #3.
[2016-07-25 05:53] LABS: BASOPHILS 0.2 % (0.0-2.0); EOSINOPHILS 3.5 % (0-7); HEMATOCRIT 32.9 % (36.0-48.0); HEMOGLOBIN 10.7 g/dL (12-16); IMMATURE GRANULOCYTES 0.5 % (0-5); MCH 31.2 pg (26.0-34.0); MCHC 32.5 g/dL (31.0-37.0); MCV 95.9 fL (80.0-100.0); MEAN PLATELET VOLUME 9.3 fL (7.4-10.4); MONOCYTES 7.9 % (2-11); NEUTROPHILS 68.9 % (40-80); PLATELET COUNT 236 10x3/uL (130-400); RBC 3.43 10x6/uL (4.00-5.40); RDW 14.5 % (11.5-14.5); WBC 9.3 10x3/uL (4.8-10.8)
[2016-07-25 06:04] LABS: INR 1.19 (0.85-1.17)
[2016-07-25 06:12] LABS: ANION GAP 12.9 mmol/L (8-16); CALCIUM 8.1 mg/dL (8.5-10.1); CARBON DIOXIDE 23.1 mmol/L (21.0-32.0)
[2016-07-25 07:00] VITALS: BP 122/43
--- NOTE | 2016-07-25 07:30 | NUR ---
RESTING QUIETLY IN BED. CALL LIGHT IN REACH
--- NOTE | 2016-07-25 12:17 | RHP ---
PATIENT: FRANK RUBIO MEDICAL RECORD: [id number] ACCOUNT: [id number] LOCATION:[facility]1116 : [birth year] ADMISSION DATE: 07/23/16 REHABILITATION HISTORY AND PHYSICAL EXAMINATION POST ADMISSION PHYSICIAN EXAMINATION Post-Admission Physical Exam and History and Physical DATE OF ADMISSION TO THE REHAB: 07/23/2016. ADMITTING DIAGNOSES: Acute renal failure, CDT, and acidosis. HISTORY OF PRESENT ILLNESS: The patient is an 86-year-old female patient admitted with acute renal failure CDT medication toxicity and acidosis, who presented to the hospital Emergency Room on 07/18 with weakness, nausea, vomiting, diarrhea and found to have acute renal failure, dehydration, and medication toxicity. She was slightly confused, but was not able to provide much in the way of history other than she was just not feeling well. She states digoxin level was somewhat toxic at 2.23. She is also on Coumadin for chronic AFib and her INR was 13.01. She has not been eating for several days. The patient was having medication toxicity and findings of acute renal failure. She was admitted to ICU, ordered ____ meds, start on fluids and rehydrate in consultation with cardiology, nephrology on admission. Stool for CDT was positive on 07/21. EKG showed AFib with controlled rate. After 2 days in the ICU, she was moved to a telemetry bed and mental status is back to baseline. Labs were within normal limits. Coumadin still on hold. Prior to admission, she was living at a [place]. She walked or drove a golf cart to and from the dining room. She did some line dancing twice a week and was independent with all ADLs and mobility. Currently, she is fatigued, weak, and dizzy. She is also min to moderate assist for ADLs and mobility for short distances. She plans to return home and has to be able to get herself up and readying to go to the dining room for all of her meals. COMORBIDITIES: In this patient include acidosis, pancreatitis, dig toxicity, Coumadin toxicity, hyperkalemia, hypermagnesemia, dehydration, acute kidney injury, bradycardia, weakness, CHF, hypertension, cataracts, and history of UTI. PAST MEDICAL HISTORY: Significant for acute renal failure, CDT, medication toxicity, confusion, and loss of appetite. PAST SURGICAL HISTORY: Includes fibrocystic breast biopsy and also tonsils. ALLERGIES: No known drug allergies. CURRENT MEDICATIONS: Include Flomax daily, digoxin 0.125 mg daily, Zofran 4 mg q.4 hours p.r.n. nausea and vomiting, metronidazole 500 mg q.8 hours p.r.n., metoprolol 25 mg b.i.d., Ativan 0.5 mg q.8 hours p.r.n., Pepcid 20 mg b.i.d., Tylenol #3 as needed for pain, and polyethylene glycol 17 grams in 8 ounces of water daily. HABITS: No alcohol or tobacco use. FAMILY HISTORY: Noncontributory. SOCIAL HISTORY: The patient once again hopes to return back to [place] HISTORY AND PHYSICAL [id number] FRANK RUBIO get back to her prior level of functioning. REVIEW OF SYSTEMS: GENERAL: Does complain of weakness and fatigue. HEENT: Denies cold, cough, or congestion. CARDIOVASCULAR: Denies chest pain. PHYSICAL EXAMINATION: VITAL SIGNS: Stable, afebrile. GENERAL: A thin female in no acute distress, alert upon exam. HEENT: Normocephalic, atraumatic. Mucosa moist. NECK: Supple. No lymphadenopathy. LUNGS: Clear at this time. HEART: Regular rate and rhythm. ABDOMEN: Benign. EXTREMITIES: No clubbing, cyanosis or edema. NEUROLOGICAL: Slow to mentate, but intact. LABORATORY DATA: Her admit lab work shows a white count of 8.7, H&H 9.4 and 28.9 and platelet count was noted to be normal at 236. Her sodium is 134, potassium 3.8, BUN and creatinine of 11 and 0.9 and blood sugar was noted to be 89. ASSESSMENT: This is an 86-year-old female patient admitted to rehab with a working diagnosis of acute renal failure complicated by CDT, weakness and dehydration. The patient has potential to make improvement. We instituted the following multidisciplinary therapies including to, but not limited to physical, occupational, respiratory, speech, nutritional services, prosthetics and orthotics. Given her complex condition and risk for more complications, rehabilitation services cannot be provided at a low level of care such as a fci facility. PLAN: 1. Admit to [facility] rehab for intensive inpatient therapy to include the following disciplines: A. Physical therapy to improve gait, all transfer skills and bed mobility to a modified independent level. B. Occupational therapy to improve activities of daily living to a modified independent level. C. Case management to assist with discharge planning and placement options. D. Nutrition to assist with nutritional needs. E. Rehabilitation nursing to assist in monitoring the patient's underlying medical conditions and to assist with any type of bowel or bladder management. 2. The patient's current medication and medical care will be continued. 3. The patient will be placed on standard fall precautions. 4. The patient's estimated length of stay is approximately 7-10 days. 5. We will monitor digoxin levels and also her INR closely and we will treat these as needed. TRANSINT:[id number] Voice Confirmation ID: [id number] DOCUMENT ID: [id number] HISTORY AND PHYSICAL [id number] FRANK RUBIO SCOTT MD at 1217 CC: [id number] DICTATION DATE: 07/24/16 1407 PUBLIC SPEAKING PROFESSOR: 07/24/16 1836 ADM IN [facility] [address] [place] [address]
--- NOTE | 2016-07-25 13:07 | NUR ---
SITTING ON SIDE OF BED EATING LUNCH. FAMILY IN ROOM VISITING WITH PT
--- NOTE | 2016-07-25 18:13 | NUR ---
PT REPORTS ONE LARGE, FORMED BM. SHE FLUSHED IT BEFORE NURSE SAW STOOL.
--- NOTE | 2016-07-25 19:30 | NUR ---
PT RESTING IN BED. VS TAKEN. ASSESSMENT COMPLETE. PT DENIES NEEDS AT THIS TIME. BED LOW. CL IN [facility].
[2016-07-25 21:15] VITALS: BP 129/53
--- NOTE | 2016-07-25 21:21 | NUR ---
PT HS MEDS GIVEN. PT REQ AND REC'D PRN ATIVAN. WCTM. BED LOW. CL IN REACH.
--- NOTE | 2016-07-25 23:15 | NUR ---
PT RESTING, EYES CLOSED. BED LOW. CL IN REACH. WCTM.
--- NOTE | 2016-07-26 01:32 | NUR ---
PT RESTING, EYES CLOSED. BED LOW. CL IN REACH. WCTM.
--- NOTE | 2016-07-26 04:27 | NUR ---
PT RESTING, EYES CLOSED. BED LOW. CL IN REACH.
--- NOTE | 2016-07-26 06:14 | NUR ---
PT SITTING UP IN WHEELCHAIR, DENIES NEEDS AT THIS TIME. BED LOW. CL IN [facility].
--- NOTE | 2016-07-26 08:00 | NUR ---
SITTING UP IN CHAIR.BREAKFAST GIVEN.CL IN REACH.
--- NOTE | 2016-07-26 08:30 | NUR ---
FOUND LYING DOWN IN BED ;ASKED HOW SHE GOT BACK IN BED AND SHE STATED SHE DONE IT BYHERSELF;INSTRUCTED TO NOT DO IT UNLESS SOMEONE IS PRESENT BECAUSE SHE IS A FALL RISK.,SHE STATED UNDERSTANDING.
[2016-07-26 09:19] VITALS: BP 162/72
--- NOTE | 2016-07-26 12:00 | NUR ---
EATING LUNCH.DENIES NEEDS.LAB WORK NEGATIVE.
[2016-07-26 12:42] LABS: CREATINE KINASE 51 UL (21-215); TROPONIN-I < 0.017 ng/mL (0.000-0.060)
[2016-07-26 13:50] VITALS: BP 131/55
--- NOTE | 2016-07-26 14:10 | NUR ---
NOTIFIED .PULSE DROPPED TO 41-42;PT SLEEPING BUT EASILY AWAKENED.DENIES ANY PROBLEMS.NOTIFIED FOR CARDIO CONSULT.SPOKE WITH KIRK AND INFO GIVEN.
[2016-07-26 15:49] LABS: CKMB 1.2 U/L (0.0-3.6); CREATINE KINASE 39 UL (21-215)
[2016-07-26 15:54] LABS: TROPONIN-I < 0.017 ng/mL (0.000-0.060)
--- NOTE | 2016-07-26 16:00 | NUR ---
UP OOB TO WC.SUPPER GIVEN.
[2016-07-26 19:00] VITALS: BP 108/62
--- NOTE | 2016-07-26 20:04 | NUR ---
PT HS MEDS ADMINISTERED. PT RESTING IN BED AND DENIES FURTHER NEEDS. WCTM. BED LOW. CL IN REACH.
[2016-07-26 21:45] LABS: CKMB 1.4 U/L (0.0-3.6); CREATINE KINASE 39 UL (21-215); TROPONIN-I 0.016 ng/mL (0.000-0.060)
--- NOTE | 2016-07-26 22:38 | NUR ---
PT RESTING, EYES CLOSED. BED LOW. CL IN REACH. WCTM.
--- NOTE | 2016-07-27 01:30 | NUR ---
PT RESTING, EYES CLOSED. BED LOW. CL IN REACH.
--- NOTE | 2016-07-27 02:28 | NUR ---
PT REQ AND REC'D PRN PAIN MEDICATION AT THIS TIME. WCTM. BED LOW. CL IN REACH.
--- NOTE | 2016-07-27 08:00 | NUR ---
SHIFT ASSMT COMPLETED.TELEMETRY 72 CAF.BREAKFAST GIVEN.CL IN REACH.
[2016-07-27 10:26] VITALS: BP 152/74
--- NOTE | 2016-07-27 12:00 | NUR ---
EATING LUNCH.DAUGHTER AT BEDSIDE.CL IN REACH.
--- NOTE | 2016-07-27 14:09 | NUR ---
Nutrition Follow Up: Pt was on the phone at the time of RD visit. Interview deferred at this time. Pt is eating 49% meal avg on a regular diet. Wt stable. +BM x 4 on 07/26/16 (+CDT). Meds noted including Flagyl. No new labs, wt to assess. Pt with poor po intake. Rec continue current diet. Will continue to provide selective menus and honor food preferences. RD following.
--- NOTE | 2016-07-27 16:00 | NUR ---
RESTING QUIETLY IN ROOM AFTER THERAPY.DAUGHTER AT BEDSIDE.
[2016-07-27 19:00] VITALS: BP 118/62
--- NOTE | 2016-07-27 19:54 | NUR ---
PT IN BED WITH HOB UP FOR COMFORT, WATCHING TV, PT HAS NO COMPLAINTS AT THIS TIME, BED IN LOWEST POSITION AND CALL LIGHT WITHIN REACH.
--- NOTE | 2016-07-27 23:12 | NUR ---
PT IN BED WITH HOB UP FOR COMFORT, WATCHING TV, PT COMPLAINS OF PAIN IN HER BACK AND KNEES FROM HER ARTHRITIS, WILL CONTINUE TO MONITOR AND DO PAIN RELIEF MEASURES, BED IN LOWEST POSITION AND CALL LIGHT WITHIN REACH.
--- NOTE | 2016-07-28 04:02 | NUR ---
PT IN BED, EYES CLOSED, CHEST RISING AND FALLING, BED IN LOWEST POSITION AND CALL LIGHT WITHIN REACH.
--- NOTE | 2016-07-28 04:21 | NUR ---
PT IN BED WITH EYES CLOSED AND CHEST RISING. NO SIGN/SYMPTOM OF DISTRESS NOTED. CALL LIGHT IN REACH.
--- NOTE | 2016-07-28 04:23 | NUR ---
PT'S LEFT HAND SALINE LOC IV FLUSHES EASILY. IV SITE SHOWS NO S/S OF INFECTION. DRESSING C/D/I.
[2016-07-28 07:14] LABS: BASOPHILS 0.1 % (0.0-2.0); EOSINOPHILS 3.4 % (0-7); HEMATOCRIT 31.4 % (36.0-48.0); HEMOGLOBIN 10.1 g/dL (12-16); IMMATURE GRANULOCYTES 0.2 % (0-5); LYMPHOCYTES 13.8 % (15-50); MCH 31.2 pg (26.0-34.0); MCHC 32.2 g/dL (31.0-37.0); MCV 96.9 fL (80.0-100.0); MEAN PLATELET VOLUME 9.5 fL (7.4-10.4); MONOCYTES 9.8 % (2-11); NEUTROPHILS 72.7 % (40-80); PLATELET COUNT 228 10x3/uL (130-400); RBC 3.24 10x6/uL (4.00-5.40); RDW 15.1 % (11.5-14.5)
[2016-07-28 07:37] LABS: ANION GAP 12.5 mmol/L (8-16); CALCIUM 8.3 mg/dL (8.5-10.1); CARBON DIOXIDE 23.6 mmol/L (21.0-32.0); CREATININE - SERUM 0.9 mg/dL (0.6-1.3); POTASSIUM - SERUM 4.1 mmol/L (3.5-5.1)
--- NOTE | 2016-07-28 08:00 | NUR ---
SHIFT ASSMT COMPLETED.CL IN REACH.BREAKFAST GIVEN.NO REPORTS OF SLOW PULSE.STATES DOES HAVE SOME SOB WITH ACTIVITY BUT NOTHING THAT SHE HAS NOT BEEN DOING BEFORE.
[2016-07-28 09:52] VITALS: BP 130/62
--- NOTE | 2016-07-28 12:00 | NUR ---
EATING LUNCH.FAMILY IN ROOM VISITING.
--- NOTE | 2016-07-28 15:17 | NUR ---
CARE TEAM MEETING: SON AND [id number] ATTENDED THE MEETING. PCP IS DR. PERERA, SHE HAS WALKER AND CANE. SHE HAS USED [facility] FOR HOME HEALTH. PATIENT LIVES AT [facility] DR. STRINGER WILL BE CONSULTED AND POSSIBLE PATIENT WILL DISCHARGE ON THE 07/30/16, IF NOT THEN TENATIVE DC DATE WILL BE 08/02/16. WILL CONTINUE TO FOLLOW WITH PATIENT UNTIL DISCHARGED
--- NOTE | 2016-07-28 16:00 | NUR ---
SITTING UP IN WC.DENIES NEEDS.
[2016-07-28 19:00] VITALS: BP 118/76
--- NOTE | 2016-07-28 19:45 | NUR ---
PT IS RESTING IN BED WITH EYES OPEN. ALERT AND ORIENTED X 4. DENIES ACUTE PAIN OR DISCOMFORT AT THIS TIME. VSS. CONTACT PRECAUTIONS OBSERVED FOR CDIFF. SR'S ARE UP X 3 IN BED. CALL LIGHT AND BEDSIDE TABLE ARE WITHIN EASY REACH.
--- NOTE | 2016-07-28 22:32 | NUR ---
PT IS RESTING QUIETLY IN BED WITH EYES CLOSED. RESPS ARE EVEN AND UNLABORED. NO ACUTE DISTRESS NOTED.
--- NOTE | 2016-07-29 01:00 | NUR ---
PT IN BED WITH HOB UP FOR COMFORT, EYES CLOSED, CHEST RISING AND FALLING, BED IN LOWEST POSITION AND CALL LIGHT WITHIN REACH.
--- NOTE | 2016-07-29 01:19 | NUR ---
PT ASSISTED TO THE BATHROOM WITH SBA. NO FURTHER NEEDS VOICED.
--- NOTE | 2016-07-29 03:20 | NUR ---
RESTING IN BED WITH EYES CLOSED.
--- NOTE | 2016-07-29 04:10 | NUR ---
RESTING IN BED ON LEFT SIDE, EYES CLOSED. NO DISTRESS NOTED.
--- NOTE | 2016-07-29 07:24 | NUR ---
PT SLEEPING IN BED.
[2016-07-29 09:00] VITALS: BP 168/82
--- NOTE | 2016-07-29 14:25 | NUR ---
PT RESTING IN BED WITH EYES OPEN CALL LIGHT IN REACH NO PROBLEMS WILL MONITER
[2016-07-29 19:00] VITALS: BP 128/68
--- NOTE | 2016-07-29 20:35 | NUR ---
PT SITTING UP IN CHAIR, WATCHING TV, CALL LIGHT WITHIN REACH.
--- NOTE | 2016-07-29 21:23 | NUR ---
PT'S LEFT HAND SALINE LOC IV FLUSHES EASILY. IV SITE SHOWS NO S/S OF INFECTION. DRESSING C/D/I.
--- NOTE | 2016-07-30 02:05 | NUR ---
PT RESTING, EYES CLOSED. BED LOW. CL IN REACH.
--- NOTE | 2016-07-30 04:02 | NUR ---
PT IN BED WITH HOB UP FOR COMFORT, EYES CLOSED, CHEST RISING AND FALLING, BED IN LOWEST POSITION AND CALL LIGHT WITHIN REACH.
[2016-07-30 08:00] VITALS: BP 154/61
--- NOTE | 2016-07-30 08:00 | NUR ---
PATIENT REMAINS IN CONTACT ISOLATION FOR C-DIFF. AWAKE. ALERT/ORIENT X4. CALL LIGHT WITHIN REACH. VOICES NO NEEDS AT THIS TIME
--- NOTE | 2016-07-30 09:15 | NUR ---
PRN ATIVAN GIVEN FOR ANXITEY.
--- NOTE | 2016-07-30 09:40 | NUR ---
RELIEF FROM ANXIEITY OBTAIN PER PATIENT.
[2016-07-30 10:48] LABS: ALBUMIN 2.9 g/dL (3.4-5.0); BILIRUBIN - TOTAL 0.33 mg/dL (0.2-1.3); CALCIUM 8.9 mg/dL (8.5-10.1); CARBON DIOXIDE 25.1 mmol/L (21.0-32.0); POTASSIUM - SERUM 4.1 mmol/L (3.5-5.1); PROTEIN - SERUM 6.5 g/dL (6.4-8.2)
[2016-07-30 10:55] LABS: BASOPHILS 0.2 % (0.0-2.0); HEMATOCRIT 33.1 % (36.0-48.0); HEMOGLOBIN 10.6 g/dL (12-16); IMMATURE GRANULOCYTES 0.2 % (0-5); LYMPHOCYTES 9.3 % (15-50); MCH 31.4 pg (26.0-34.0); MCV 97.9 fL (80.0-100.0); MEAN PLATELET VOLUME 9.2 fL (7.4-10.4); MONOCYTES 9.1 % (2-11); NEUTROPHILS 78.2 % (40-80); PLATELET COUNT 242 10x3/uL (130-400); RBC 3.38 10x6/uL (4.00-5.40); RDW 15.7 % (11.5-14.5); WBC 8.6 10x3/uL (4.8-10.8)
--- NOTE | 2016-07-30 12:31 | NUR ---
PATIENT HAS FAMILY IN ROOM. VOICES NO NEEDS AT THIS TIME
--- NOTE | 2016-07-30 14:33 | NUR ---
PRN TYLENOL GIVEN FOR GENERAL ALL OVER PAIN PER PATIENT REQUEST
--- NOTE | 2016-07-30 18:27 | NUR ---
PATIENT SITTING IN RECLINER IN ROOM AND TALKING ON CELL PHONE.
[2016-07-30 19:00] VITALS: BP 122/72
--- NOTE | 2016-07-30 22:36 | NUR ---
PT RECEIVED IN BED WATCHING TV. REQUEST PRN ATIVAN AND GIVEN PER MAR. NO OTHER NEEDS MADE KNOWN. EVENING MEDICATIONS GIVEN PER MARE WITHOUT DIFFICULTY. CALL LIGHT IN REACH.
--- NOTE | 2016-07-31 02:21 | NUR ---
PT IN BED WITH EYES CLOSED. NO SIGN/SYMPTOMS OF DISTRESS NOTED. CALL LIGHT IN REACH.
[2016-07-31 07:00] VITALS: BP 162/78
--- NOTE | 2016-07-31 07:40 | NUR ---
PT IN BED RESTING WITH EYES CLOSED. ANSWERED WHEN SPOKE TO. NO DISTRESS NOTED. WILL CONT TO MONITOR.
--- NOTE | 2016-07-31 13:45 | NUR ---
NAPPING ON SIDE.CL IN REACH.DAUGHTER AT BEDSIDE.
--- NOTE | 2016-07-31 18:18 | NUR ---
PT REQUESTED A PAIN PILL TO HELP HER BACK SO SHE CAN REST. DAUGHTER AT BEDSIDE.
[2016-07-31 23:00] VITALS: BP 150/65
--- NOTE | 2016-07-31 23:20 | NUR ---
PT RECEIVED IN BED WITH EYES OPEN WATCHING TV. NO SIGN/SYMPTOMS OF DISTRESS NOTED. NO COMPLAINTS OR CONCERNS MADE KNOWN. RECEIVED MEDICATIONS PER MAR WITHOUT DIFFICULTY. IN BED WITH EYES CLOSED CHEST RISING AT THIS TIME. CALL LIGHT IN REACH.
--- NOTE | 2016-08-01 00:49 | NUR ---
PT IN BED WITH EYES CLOSED AND CHEST RISING. NO SIGN/SYMPTOMS OF DISTRESS NOTED. CALL LIGHT IN REACH.
--- NOTE | 2016-08-01 06:30 | NUR ---
PT IN BED WITH EYES CLOSED AND CHEST RISING. REQUESTED PRN ATIVAN AND GIVEN PER MAR. NO OTHER CONCERNS NOTED AT THIS TIME. CALL LIGHT IN REACH.
[2016-08-01 07:00] VITALS: BP 169/73
--- NOTE | 2016-08-01 07:58 | NUR ---
RESTING ON LT SIDE IN BED.
--- NOTE | 2016-08-01 09:40 | NUR ---
SITTING UP IN CHAIR IN THE ROOM AND TOOK MEDS WITH EASE. C/O LOWER BACK PAIN, PRN GIVEN.
--- NOTE | 2016-08-01 11:48 | NUR ---
SITTING IN CHAIR WITH HEAD LAID OVER ON A PILLOW. STATES I HAVE SHORTNESS OF BREATH WHEN I DO ANY ACTIVITY BUT I'M OKAY RIGHT NOW.
--- NOTE | 2016-08-01 13:56 | NUR ---
SLEEPING IN BED WITH CALLIGHT IN REACH.
--- NOTE | 2016-08-01 15:51 | NUR ---
SLEEPING IN BED WITH CALLIGHT IN REACH.
--- NOTE | 2016-08-01 17:55 | NUR ---
RESTING ON RT SIDE IN BED.
[2016-08-01 19:25] VITALS: BP 148/71
--- NOTE | 2016-08-01 22:14 | NUR ---
PT'S LEFT HAND SALINE LOC IV FLUSHES EASILY. IV SITE SHOWS NO S/S OF INFECTION. DRESSING C/D/I.
--- NOTE | 2016-08-02 02:14 | NUR ---
PT IN BED, EYES OPEN, PT STATES SHE IS ANXIOUS ABOUT GOING HOME.
--- NOTE | 2016-08-02 05:20 | NUR ---
D/C PT'S LEFT HAND SALINE LOC IV. CATH TIP INTACT. PT TOLERATED PROCEDURE WELL.
--- NOTE | 2016-08-02 08:00 | NUR ---
RESTING QUIETLY IN BED,AROUSES EASILY FOR DIET.ASSESSMENT COMPLETED .DENIES ANY PAIN AND NEEDS.CONSULTING UTILITY FORESTER INTACT AND SHOWING CONTROLLED ATRIAL FIB,RATE 84.REMAINS IN CONTACT ISOLATION FOR C DIFF IN STOOL.WILL CONTINUE PLAN OF CARE.TO BE DISCHARGED HOME TODAY.
[2016-08-02] MEDS ORDERED: ELIQUIS2.5 MG PO (08:52)
[2016-08-02 09:26] VITALS: BP 153/88
--- NOTE | 2016-08-02 09:43 | NUR ---
PATIENT DISCHRGING HOME WITH FAMILY TODAY. [facility] WILL FOLLOW WITH PATIENT FOR HOME HEALTH. NO NEW DME NEEDED AT THIS TIME . APPOINTMENTS: DR. PERERA 08/06/16 @ 9:30 DR. STACEY STRINGER 09/08/16 @ 10:00. ORDERS HAVE BEEN FAXED WITH CONFORMATION RECIEVED
--- NOTE | 2016-08-02 09:53 | NUR ---
PATIENT CHOICE FORM FOR HOME HEALTH AND IMFM FORM SIGNED AND FILED IN CHART
--- NOTE | 2016-08-02 11:30 | NUR ---
DISCHARGE TEACHING DONE WITH DAUGHTER AND PATIENT.ALL QUESTIONS ANSWERED.MEDS NOT AT HOME TO BE CALLED TO [facility] ,ENOUGH FOR ONE WEEK PER PATIENT REQUEST AND DIRECTION.
--- NOTE | 2016-08-02 11:50 | NUR ---
MEDS CALLED TO TENA AT [facility].THEY WILL DELIVER TO HER HOME.PATIENT AND DAUGHTER INFORMED.
--- NOTE | 2016-08-02 12:00 | NUR ---
DISCHARGED HOME VIA WC TO CAR WITH DAUGHTER AT SIDE.HAS ALL PERSONAL ITEMS AND INSTRUCTIONS.
== END 2016-08-02 12:00 | disposition home health service (06) | DRG 682 ==
LOC: D.REHAB 17:15
PROVIDERS: ADMIT Emergency Medicine
DX: N17.9 Acute kidney failure, unspecified (principal); K85.90 Acute pancreatitis without necrosis or infection, unspecified; E87.2 Acidosis; E86.0 Dehydration; T45.511D Poisoning by anticoagulants, accidental (unintentional), subsequent encounter; E87.5 Hyperkalemia; E83.41 Hypermagnesemia; R00.1 Bradycardia, unspecified; R53.1 Weakness; I11.0 Hypertensive heart disease with heart failure; I50.9 Heart failure, unspecified; H26.9 Unspecified cataract; Z66 Do not resuscitate

== ENCOUNTER 2016-08-09 20:27 | Emergency (ER) | payer MEDICARE, BC ==
[2016-07-24 09:17] VITALS: BMI 23.1
[~2016-08-09 20:27] MED LIST changes: +ELIQUIS2.5 MG PO
[2016-08-09 21:21] LABS: APTT 28.6 SECONDS (22.8-39.4); INR 1.11 (0.85-1.17); PROTIME 14.1 SECONDS (11.6-15.0)
[2016-08-09 21:23] LABS: BASOPHILS 0.3 % (0.0-2.0); HEMATOCRIT 39.3 % (36.0-48.0); HEMOGLOBIN 12.3 g/dL (12-16); IMMATURE GRANULOCYTES 0.8 % (0-5); LYMPHOCYTES 27.2 % (15-50); MCH 31.6 pg (26.0-34.0); MCHC 31.3 g/dL (31.0-37.0); MEAN PLATELET VOLUME 9.6 fL (7.4-10.4); MONOCYTES 10.6 % (2-11); NEUTROPHILS 59.1 % (40-80); PLATELET COUNT 450 10x3/uL (130-400); RBC 3.89 10x6/uL (4.00-5.40); RDW 16.3 % (11.5-14.5); WBC 13.5 10x3/uL (4.8-10.8)
[2016-08-09 21:32] LABS: ALBUMIN 3.2 g/dL (3.4-5.0); ANION GAP 12.9 mmol/L (8-16); BILIRUBIN - TOTAL 0.4 mg/dL (0.2-1.3); CALCIUM 8.5 mg/dL (8.5-10.1); CARBON DIOXIDE 28.3 mmol/L (21.0-32.0); CREATININE - SERUM 1.3 mg/dL (0.6-1.3); POTASSIUM - SERUM 4.2 mmol/L (3.5-5.1); PROTEIN - SERUM 7.1 g/dL (6.4-8.2)
== END 2016-08-10 03:21 | disposition home or self-care (01) ==
LOC: D.ER 20:27
PROVIDERS: Physician Assistant Medical
DX: S83.92XA Sprain of unspecified site of left knee, initial encounter (principal); W18.11XA Fall from or off toilet without subsequent striking against object, initial encounter; Y93.89 Activity, other specified; Y92.012 Bathroom of single-family (private) house as the place of occurrence of the external cause; I50.9 Heart failure, unspecified; E87.5 Hyperkalemia

== ENCOUNTER 2016-08-12 10:07 | Inpatient (IN) | payer MEDICARE, BC ==
[~2016-08-12] VITALS: Ht 162.6 cm; Wt 55.1 kg
[2016-08-12] VITALS (12 sets, daily range): BP systolic 154–178; BP diastolic 73–95; BMI 23.6
--- NOTE | ~2016-08-12 | HEMODYNAMI ---
PATIENT:FRANK RUBIO MEDICAL RECORD: [id number] : [birth year] LOCATION[facility] [place] [id number] ADMISSION DATE: 08/12/16 Generatedon:08/13/201614:24 Patient name: FRANK RUBIO Patient #: [id number] SSN : : 1930 Date of study: 08/13/2016 Page: Of Hemodynamic Procedure Report Patient Data Patient Demographics Procedure consent was obtained First Name: FRANK Gender: Female Last Name: JOANNE : 1930 Middle Initial: Loren Age: 86 year(s) Patient #: [id number] Race: Unknown Additional ID: [id number] Contact details Address: [address] [place] [address] State: [place] City: [facility] Zip code: [address] Admission Admission Data Admission Date: 08/12/2016 Admission Time: 13:31 Room #: D2304 Procedure Procedure Types Cath Procedure Peripheral Cath Diagnostic Procedure Miscellaneous Procedure Description Procedure Date Procedure Date: 08/13/2016 Procedure Start Time: 12:29 Procedure Staff Name Function Luis Rashid MD Performing Physician April Batista RT Scrub Ebonie Hoffmann RN Nurse Yfn Grossman RT Monitor Procedure Data Cath Procedure Fluoroscopy Diagnostic fluoroscopy Total fluoroscopy Time: time: 16.3 min 16.3 min Diagnostic fluoroscopy Total fluoroscopy dose: 338 dose: 338 mGy mGy Contrast Material Contrast Material Type Amount (ml) Isovue 300 96 Procedure Medications Medication Administration Route Dosage Oxygen NC 4 l/min Lidocaine 1% added to field 20 Heparin Flush Bag added to field 2 bags (1000units/500ml NS) Heparin Bolus I.V. 3000 units Versed I.V. 1 mg Fentanyl I.V. 50 mcg Versed I.V. 0.5 mg Fentanyl I.V. 25 mcg Fentanyl I.V. 25 mcg Nitroglycerin IC/IA 300 mcg Fentanyl I.V. 25 mcg Versed I.V. 0.5 mg Hemodynamics Rest Heart Rate: 120 (bpm) Snapshots Pre Cath Intra NCS Post Cath Vital Signs Time Heart Resp SPO2 NIBP (mmHg) Rhythm Pain Sedation Rate (ipm) (%) Status Level (bpm) 12:19:03 93 10 90 162/99(139) NSR 0 (11) 10(A) , No pain 12:24:02 104 10 95 Measuring NSR 0 (11) 10(A) , No pain 12:24:04 103 12 95 158/94(121) NSR 0 (11) 10(A) , No pain 12:28:18 107 12 92 141/95(112) NSR 0 (11) 10(A) , No pain 12:32:32 114 14 75 135/73(103) NSR 0 (11) 9(A) , No pain 12:36:40 95 11 91 145/87(115) NSR 0 (11) 9(A) , No pain 12:40:41 120 10 92 127/92(120) NSR 0 (11) 9(A) , No pain 12:44:49 120 11 90 140/84(119) NSR 0 (11) 9(A) , No pain 12:49:15 101 11 93 136/40(103) NSR 0 (11) 9(A) , No pain 12:54:14 104 10 89 Measuring NSR 0 (11) 9(A) , No pain 12:54:17 100 10 89 140/79(109) NSR 0 (11) 10(A) , No pain 12:58:43 106 16 92 143/26(46) NSR 0 (11) 10(A) , No pain 13:02:53 111 14 90 149/93(133) NSR 0 (11) 9(A) , No pain 13:07:09 80 17 90 142/77(119) NSR 0 (11) 9(A) , No pain 13:11:27 94 12 91 142/67(112) NSR 0 (11) 9(A) , No pain 13:15:43 109 15 91 120/69(108) NSR 0 (11) 9(A) , No pain 13:19:49 117 14 92 132/77(114) NSR 0 (11) 9(A) , No pain 13:24:48 102 12 94 Measuring NSR 0 (11) 9(A) , No pain 13:26:01 117 13 89 136/71(0) NSR 0 (11) 9(A) , No pain 13:28:47 114 12 89 129/71(89) NSR 0 (11) 9(A) , No pain 13:33:02 93 13 91 142/67(101) NSR 0 (11) 9(A) , No pain 13:37:13 89 13 92 133/71(96) NSR 0 (11) 9(A) , No pain 13:41:25 121 13 92 130/76(103) NSR 0 (11) 9(A) , No pain 13:45:37 113 13 92 126/73(94) NSR 0 (11) 9(A) , No pain 13:49:49 114 12 93 134/68(101) NSR 0 (11) 9(A) , No pain 13:53:53 107 15 96 130/79(105) NSR 0 (11) 10(A) , No pain 13:58:52 99 11 94 147/76(124) NSR 0 (11) 10(A) , No pain 14:02:56 106 14 96 144/91(106) NSR 0 (11) 10(A) , No pain 14:07:12 102 13 95 144/76(112) NSR 0 (11) 10(A) , No pain 14:12:09 117 13 94 125/76(119) NSR 0 (11) 10(A) , No pain 14:17:08 115 11 95 Measuring NSR 0 (11) 10(A) , No pain 14:17:14 85 12 95 131/83(120) NSR 0 (11) 10(A) , No pain 14:21:14 No Cuff NSR 0 (11) 10(A) , No pain Medications Time Medication Route Dose Verified Delivered Reason Notes Effectiveness by by 12:10:40 Lidocaine 1% added to 20ml Ebonie Ebonie for local field vial Shun Shun anesthetic RN RN 12:10:54 Heparin Flush added to 2 bags Ebonie Ebonie used for Bag field Shun Shun procedure (1000units/500ml RN RN NS) 12:10:56 Oxygen NC 4 Ebonie Ebonie Per protocol l/min Shun Shun RN RN 12:25:32 Versed I.V. 1 mg Ebonie Ebonie for sedation Shun Hoffmann RN RN 12:25:46 Fentanyl I.V. 50 mcg Ebonie Ebonie for sedation Shun Hoffmann RN RN 12:47:34 Heparin Bolus I.V. 3000 Ebonie Ebonie for units Shun Hoffmann anticoagulation RN RN 12:58:28 Versed I.V. 0.5 mg Ebonie Ebonie for sedation Shun Hoffmann RN RN 12:58:34 Fentanyl I.V. 25 mcg Ebonie Ebonie for sedation Shun Hoffmann RN RN 13:20:41 Fentanyl I.V. 25 mcg Ebonie Ebonie for sedation Shun Hoffmann RN RN 13:25:27 Nitroglycerin I.A.posterior 300mcg Luis Smith for IC/IA tibial artery Gay hernandez MD, MD 13:54:52 Fentanyl I.V. 25 mcg Ebonie Ebonie for sedation Shun Hoffmann RN RN 13:55:03 Versed I.V. 0.5 mg Ebonie Ebonie for sedation Shun Hoffmann RN laborer brush clearing Log Time Note 12:04:58 Yfn Grossman RT (R) (CV) sent for patient. Start room use. 12:05:11 Time tracking: Regular hours 12:05:19 Plan of Care:Hemodynamics will remain stable., Cardiac rhythm will remain stable., Comfort level will be maintained., Respiratory function will remain adequate., Patient/ family verbilizes understanding of procedure., Procedure tolerated without complication., Recovers from procedure without complications.. 12:05:27 Patient received from ICU to IR Alert and oriented. Tansferred to table in Supine position. 12:05:29 Correct patient and procedure confirmed by team. 12:05:31 Signed procedure consent form obtained from patient. 12:05:32 ECG and BP/O2 sat monitors applied to patient. 12:05:33 Full Disclosure recording started 12:05:34 - 12:05:38 H&P Date Dictated: 08/13/2016 Within 30 days and on chart.. 12:05:38 Pre-procedure instructions explained to patient. 12:05:39 Pre-op teaching completed and patient verbalized understanding. 12:05:40 Family in waiting room. 12:05:42 Patient NPO since Midnight. 12:05:47 Is the patient allergic to Iodine/contrast media? No. 12:05:48 Is patient on blood thinner?Yes 12:05:57 ACC The patient was administered the following blood thiners within the last 24 hours: ACCHeparin 12:06:09 tpa drip discontinued 12:10:40 Lidocaine 1% 20ml vial added to field was administered by Ebonie Hoffmann RN; for local anesthetic; 12:10:54 Heparin Flush Bag (1000units/500ml NS) 2 bags added to field was administered by Ebonie Hoffmann RN; used for procedure; 12:10:56 Oxygen 4 l/min NC was administered by Ebonie Hoffmann RN; Per protocol ; 12:11:18 Patient diabetic? No. 12:11:20 - 12:11:20 ----Pre-sedation anethsthesia assessment.---- 12:11:25 Previous problem with sedation/anesthesia? No ? 12:11:26 Snore? Yes 12:11:30 Deviated septum? No 12:11:40 Sleep apnea? Yes 12:11:44 Opens mouth fully? Yes 12:11:45 Sticks out tongue? Yes 12:11:48 Airway obstruction? No ? 12:11:52 Dentures? Yes out 12:11:58 Pre procedure: right dorsailis pedis pulse 0-Absent 12:12:03 Pre procedure: right posterior tibial pulse Doppler 12:12:09 Pre procedure: left dorsailis pedis pulse 0-Absent 12:12:14 Pre procedure: left posterior tibial pulse 0-Absent 12:12:18 Sharps counted by scrub and verified by R.N. 12:12:19 Alarms reviewed by R. N. 12:12:24 Right groin area was prepped with chlora-prep and draped in sterile fashion 12:12:32 Patient pain scale 0/10 no pain. 12:12:38 IV patent on arrival in left forearm with 0.9% NaCl at KVO. 12:16:15 Use device set IR Diagnostic 12:16:16 Sterile Angiographic Pack opened to sterile field. 12:16:19 Bag Decanter opened to sterile field. 12:17:56 Baseline sample Acquired. 12:17:56 Vital chart was started 12:18:00 Rhythm: sinus rhythm 12:19:08 TUBING, CONTRAST INJCTN HI PRES opened to sterile field. 12:24:36 Physician arrived 12:24:37 --------ALL STOP TIME OUT------ 12::38 Final Timeout: patient, procedure, and site verified with staff and physician. All members of the team are in agreement. 12:24:40 Right groin site verified by team. 12:24:47 Physical assessment completed. ASA score P 3 - A patient with severe systemic disease as per Luis Rashid MD. 12:24:51 Sedation plan: IV Moderate Sedation Versed, Fentanyl 12:25:32 Versed 1 mg I.V. was administered by Ebonie Hoffmann RN; for sedation; 12:25:46 Fentanyl 50 mcg I.V. was administered by Ebonie Hoffmann RN; for sedation; 12:29:34 Procedure started. 12:29:48 Local anesthetic to right femoral artery with Lidocaine 1% by Luis Rashid MD.INITIAL ACCESS ONLY 12:38:08 Cook GEOVANI 260 guide wire opened to sterile field. 12:38:09 Terumo 6Fr [place] Destination Sheath opened to sterile field. 12:38:21 upsized 6fr.sheath 12:38:37 QuickCat Extraction catheter opened to sterile field. 12:39:37 CXI SUPPORT .035 135 CM STR catheter opened to sterile field. 12:39:37 Clear Spring Sci Choice PT Extra Support J 300cm .014 gu opened to sterile field. 12:47:34 Heparin Bolus 3000 units I.V. was administered by Ebonie Hoffmann RN; for anticoagulation; 12:58:28 Versed 0.5 mg I.V. was administered by Ebonie Hoffmann RN; for sedation; 12:58:34 Fentanyl 25 mcg I.V. was administered by Ebonie Hoffmann RN; for sedation; 13:16:31 Medtronic Launcher 6Fr MB 1 SH guide catheter opened to sterile field. 13:17:34 Copilot Bleedback Control Valve opened to sterile field. 13:19:22 CXI SUPPORT .035 150CM FARIDA catheter opened to sterile field. 13:20:41 Fentanyl 25 mcg I.V. was administered by Ebonie Hoffmann RN; for sedation; 13:25:27 Nitroglycerin IC/IA 300mcg I.A.posterior tibial artery was administered by Luis Rashid MD; for vasodilation; 13:38:36 BasixTOUCH Inflation Syringe opened to sterile field. 13:38:46 Inflation number: 1 A Gonzalez VIATRAC 6 x 4 x 135 balloon was prepped an d advanced across the Undefined1, then inflated to 0 KIMBERLEY for 0:00 (min:sec). 13:52:38 CRAGG-DEANDRA 10cm infusion catheter opened to sterile field. 13:54:52 Fentanyl 25 mcg I.V. was administered by Ebonie Hoffmann RN; for sedation; 13:55:03 Versed 0.5 mg I.V. was administered by Ebonie Hoffmann RN; for sedation; 13:57:22 SUTURE SILK 2-0 BLK BR FS 18 I opened to sterile field. 13:57:29 Procedure ended.(Physican Out) 13:59:16 Fluoroscopy time 16.30 minutes. 13:59:20 Fluoroscopy dose: 338 mGy 13:59:20 Flurop Dose total: 338 13:59:27 Contrast amount:Isovue 300 96ml. 13:59:28 Sharps counted by scrub and verified by R.N. 13:59:30 Insertion/operative site no bleeding no hematoma. 13:59:39 Post-op/insertion site Right Femoral artery dressed using a 4 x 4 and Tegaderm. 14:00:21 sheath sutured in with 2.0 silk and tpa and heparing hooked back up to cath and she 14:00:29 Post-procedure physical assessment completed. ASA score P 3 - A patient with severe systemic disease as per Luis Rashid MD. 14:00:32 Post procedure rhythm: unchanged. 14:06:47 Post procedure: right dorsailis pedis pulse Doppler. 14:06:52 Post procedure: right posterior tibial pulse Doppler. 14:06:55 Post procedure: left dorsailis pedis pulse 0-Absent. 14:07:02 Post procedure: left dorsailis pedis pulse Doppler. 14:07:07 Post procedure: left posterior tibial pulse Doppler. 14:07:15 Procedure and supply charges have been captured, reviewed, submitted an d are correct. 14:07:17 Post procedure instruction explained to patient.Patient verbalizes understanding. 14:23:32 Report given to CVICU. 14:23:36 Patient transfered to CVICU with Bed. 14:24:42 Vital chart was stopped Intervention Summary Intervention Notes Time ActionType Lesion and Equipment Action# Pressure Duration Attributes Used 13:38:46 Inflate Undefined1 Gonzalez 1 0 00:00 balloon VIATRAC 6 x 4 x 135 balloon Device Usage Item Name Manufacture Quantity Catalog Number Hospital Part Current [facility] Lot# / Charge Number Stock Stock Serial# Code Sterile Cardinal 1 [id number] 5 Angiographic Health Pack Bag Decanter Microtek 1 [id number] 40963 [id number] 5 [employer] TUBING, Merit 1 [id number] 151452 [id number] 5 CONTRAST Medical INJCTN HI PRES Cook OLIVO 260 Cook Medical 1 [id number] 002207 660703 5 [id number] guide wire Terumo 6Fr Terumo 1 [id number] 62570 710099 5 [place] Destination Sheath QuickCat Maquet 1 [id number] 541609 563163 [id number] 5 Extraction catheter CXI SUPPORT Estimote Medical 1 [id number] 908661 365973 5 [id number] .035 135 CM STR catheter Clear Spring Sci Clear Spring 1 [id number] 188065 067989 438606 5 [id number] Choice PT Scientific Extra Support J 300cm .014 gu Medtronic Medtronic 1 [id number] 928277 99981 290137 1 Launcher 6Fr MB 1 SH guide catheter Copilot Gonzalez 1 [id number] 710605 408866 862555 5 Bleedback Vascular Control Valve CXI SUPPORT Estimote Medical 1 [id number] 489635 585475 5 .035 150CM FARIDA catheter BasixTOUCH [facility] 1 [id number] 817373 129359 [id number] 5 [id number] Inflation Medical Syringe Gonzalez VIATRAC Gonzalez 1 [id number] 838801 993062 391836 5 [id number] 6 x 4 x 135 Vascular [facility] 37009-85 147470 705069 5 10cm infusion catheter SUTURE SILK Ethicon 1 685 188140 170054 5 2-0 BLK BR FS 18 I Signature Audit [place] Stage Time Signature Unsigned Intra-Procedure 08/13/2016 Yfn 2:24:39 PM Ngoc RT (R) (CV) Signatures Monitor : Yfn Signature : Ngoc RT Date : Time : [id number] [place] [address]
--- NOTE | ~2016-08-12 | HEMODYNAMI ---
PATIENT:FRANK RUBIO MEDICAL RECORD: [id number] : [birth year] [address] [id number] ADMISSION DATE: 08/12/16 Generatedon:08/14/201614:57 Patient name: FRANK RUBIO Patient #: [id number] SSN : : 1930 Date of study: 08/14/2016 Page: Of Hemodynamic Procedure Report Patient Data Patient Demographics Procedure consent was obtained First Name: FRANK Gender: Female Last Name: JOANNE : 1930 [facility] Initial: Loren Age: 86 year(s) Patient #: [id number] Race: Unknown Additional ID: [id number] Contact details Address: [address] [place] [address] State: [place] City: [facility] Zip code: [address] Admission Admission Data Admission Date: 08/12/2016 Admission Time: 13:31 Room #: [facility] Procedure Procedure Types Cath Procedure Peripheral Cath Diagnostic Procedure Miscellaneous Procedure Description Procedure Date Procedure Date: 08/14/2016 Procedure Start Time: 13:02 Procedure Staff Name Function Arnoldo Rodriguez MD Performing Physician April Batista RT Scrub Vi Martinez RN Nurse Yfn Grossman RT Monitor Procedure Data Cath Procedure Fluoroscopy Diagnostic fluoroscopy Total fluoroscopy Time: time: 12.1 min 12.1 min Diagnostic fluoroscopy Total fluoroscopy dose: 88 dose: 88 mGy mGy Contrast Material Contrast Material Type Amount (ml) Isovue 300 55 Procedure Medications Medication Administration Route Dosage Versed I.V. 0.5 mg Fentanyl I.V. 25 mcg Versed I.V. 0.5 mg Fentanyl I.V. 25 mcg Lidocaine 1% added to field 20 Heparin Flush Bag added to field 2 bags (1000units/500ml NS) Oxygen NC 3 l/min Heparin Bolus I.V. 5000 units Versed I.V. 0.5 mg Nitroglycerin IC/IA I.A. 200 mcg Fentanyl I.V. 25 mcg Fentanyl I.V. 25 mcg Nitroglycerin IC/IA I.A. 200 mcg Versed I.V. 0.5 mg Nitroglycerin IC/IA I.A. 200 mcg Nitroglycerin IC/IA I.A. 200 mcg Fentanyl I.V. 25 mcg Versed I.V. 0.5 mg Fentanyl I.V. 25 mcg Hemodynamics Rest Heart Rate: 146 (bpm) Snapshots Pre Cath Intra NCS Post Cath Vital Signs Time Heart Resp SPO2 NIBP (mmHg) Rhythm Pain Sedation Rate (ipm) (%) Status Level (bpm) 12:43:48 108 15 95 150/95(141) A-Fib 0 (11) 10(A) , No pain 12:48:04 118 14 95 164/87(126) A-Fib 0 (11) 10(A) , No pain 12:53:32 101 10 94 165/81(97) A-Fib 0 (11) 10(A) , No pain 12:57:48 101 12 94 168/79(102) A-Fib 0 (11) 10(A) , No pain 13:03:08 129 8 93 154/94(111) A-Fib 0 (11) 9(A) , No pain 13:07:20 109 9 93 139/90(115) A-Fib 0 (11) 10(A) , No pain 13:11:23 105 10 93 124/82(97) A-Fib 0 (11) 9(A) , No pain 13:15:29 121 9 93 142/81(102) A-Fib 0 (11) 9(A) , No pain 13:19:43 124 10 92 140/73(94) A-Fib 0 (11) 9(A) , No pain 13:24:44 109 9 93 135/74(106) A-Fib 0 (11) 9(A) , No pain 13:28:56 106 11 92 141/75(101) A-Fib 0 (11) 9(A) , No pain 13:33:16 106 8 94 139/53(105) A-Fib 0 (11) 9(A) , No pain 13:37:30 103 9 92 139/70(93) A-Fib 0 (11) 9(A) , No pain 13:43:00 96 9 93 124/61(92) A-Fib 0 (11) 9(A) , No pain 13:47:09 103 9 92 130/65(93) A-Fib 0 (11) 9(A) , No pain 13:51:19 111 10 92 134/70(96) A-Fib 0 (11) 9(A) , No pain 13:56:18 101 9 93 Measuring A-Fib 0 (11) 9(A) , No pain 13:56:24 104 9 93 130/66(98) A-Fib 0 (11) 9(A) , No pain 14:00:36 104 8 93 132/66(94) A-Fib 0 (11) 9(A) , No pain 14:04:46 111 9 92 130/71(97) A-Fib 0 (11) 9(A) , No pain 14:08:58 102 11 92 119/64(98) A-Fib 0 (11) 9(A) , No pain 14:13:06 109 12 87 139/67(101) A-Fib 0 (11) 9(A) , No pain 14:17:22 106 7 90 128/60(97) A-Fib 0 (11) 9(A) , No pain 14:21:29 89 11 86 131/76(95) A-Fib 0 (11) 9(A) , No pain 14:25:37 98 11 84 139/80(111) A-Fib 0 (11) 9(A) , No pain 14:29:49 106 11 85 125/74(92) A-Fib 0 (11) 9(A) , No pain 14:34:48 106 9 92 Measuring A-Fib 0 (11) 9(A) , No pain 14:34:50 101 9 92 148/74(95) A-Fib 0 (11) 9(A) , No pain 14:39:08 119 11 94 147/73(110) A-Fib 0 (11) 9(A) , No pain 14:44:30 105 9 92 137/85(112) A-Fib 0 (11) 9(A) , No pain 14:48:42 85 6 90 144/77(111) A-Fib 0 (11) 9(A) , No pain 14:52:56 91 8 91 139/76(112) A-Fib 0 (11) 9(A) , No pain 14:56:55 88 7 94 No Cuff A-Fib 0 (11) 9(A) , No pain Medications Time Medication Route Dose Verified Delivered Reason Notes Ef fectiveness by by 12:45:20 Lidocaine 1% added 20ml Vi Vi for local to vial King JEN Martinez RN anesthetic field 12:45:31 Heparin Flush added 2 Vi Vi used for Bag to bags King JEN Martinez damper maker (1000units/500ml field NS) 12:45:42 Oxygen NC 3 Vi Vi Per protocol l/min King JEN Martinez RN 12:58:02 Versed I.V. 0.5 Vi Vi for sedation mg King JEN Martinez RN 12:58:56 Fentanyl I.V. 25 Vi Vi for sedation mcg King JEN Martinez RN 13:07:49 Versed I.V. 0.5 Vi Vi for sedation mg King JEN Martinez RN 13:08:06 Fentanyl I.V. 25 Vi Vi for sedation mcg King JEN Martinez RN 13:11:17 Heparin Bolus I.V. 5000 Vi Vi for units King JEN Martinez RN antiplatelet therapy 13:28:20 Versed I.V. 0.5 Vi Vi for sedation mg King JEN Martinez RN 13:36:25 Nitroglycerin I.A. 200 Vi Arnoldo for IC/IA mcg King JEN Rodriguez MD vasodilation 13:36:33 Fentanyl I.V. 25 Vi Vi for sedation mcg King JEN Martinez RN 13:50:04 Fentanyl I.V. 25 Vi Vi for sedation mcg King JEN Martinez RN 13:53:29 Nitroglycerin I.A. 200 Vi Arnoldo for IC/IA mcg King JEN Rodriguez MD vasodilation 14:08:35 Versed I.V. 0.5 Vi Vi for sedation mg King JEN Martinez JEN 14:16:06 Nitroglycerin I.A. 200 Vi Arnoldo for IC/IA mcg King JEN Rodriguez MD vasodilation 14:24:09 Nitroglycerin I.A. 200 Vi Arnoldo for IC/IA mcg King JEN Rodriguez MD vasodilation 14:31:28 Fentanyl I.V. 25 Vi Vi for sedation mcg King JEN Martinez RN 14:35:29 Versed I.V. 0.5 Vi Vi for sedation mg King JEN Martinez JEN 14:45:24 Fentanyl I.V. 25 Vi Vi for sedation [facility] King JEN Martinez fitness supervisor Log Time Note 12:36:07 Yfn Grossman RT (R) (CV) sent for patient. Start room use. 12:36:16 Time tracking: Regular hours 12:36:24 Time tracking: Regular hours 12:36:28 Plan of Care:Hemodynamics will remain stable., Cardiac rhythm will remain stable., Comfort level will be maintained., Respiratory function will remain adequate., Patient/ family verbilizes understanding of procedure., Procedure tolerated without complication., Recovers from procedure without complications.. 12:36:31 Correct patient and procedure confirmed by team. 12:36:33 Signed procedure consent form obtained from patient. 12:36:34 ECG and BP/O2 sat monitors applied to patient. 12:36:35 Full Disclosure recording started 12:36:35 - 12:36:38 H&P Date Dictated: 08/14/2016 Within 30 days and on chart.. 12:36:39 Pre-procedure instructions explained to patient. 12:36:40 Pre-op teaching completed and patient verbalized understanding. 12:36:42 Family in waiting room. 12:36:44 Patient NPO since Midnight. 12:36:48 Use device set IR Diagnostic 12:36:49 Sterile Angiographic Pack opened to sterile field. 12:36:50 Bag Decanter opened to sterile field. 12:40:26 Physician arrived 12:40:34 Dr Rodriguez talking with patient and examining left foot doppler signals. 12:41:09 Is the patient allergic to Iodine/contrast media? No. 12:41:14 Is patient on blood thinner?Yes 12:41:20 ACC The patient was administered the following blood thiners within the last 24 hours: ACCHeparin 12:41:28 tpa drip also 12:41:33 Patient diabetic? No. 12:41:34 - 12:41:34 ----Pre-sedation anethsthesia assessment.---- 12:41:37 Previous problem with sedation/anesthesia? No ? 12:41:38 Snore? Yes 12:41:39 Sleep apnea? Yes 12:41:40 Deviated septum? No 12:41:41 Opens mouth fully? Yes 12:41:43 Sticks out tongue? Yes 12:41:45 Airway obstruction? No ? 12:41:49 Dentures? Yes out 12:41:55 Pre procedure: right dorsailis pedis pulse Doppler 12:41:59 Pre procedure: right posterior tibial pulse Doppler 12:42:03 Pre procedure: left dorsailis pedis pulse Doppler 12:42:08 Pre procedure: left posterior tibial pulse 0-Absent 12:42:15 Patient pain scale 0/10 no pain. 12:42:22 IV patent on arrival in left forearm with 0.9% NaCl at [facility]. 12:42:25 Sharps counted by scrub and verified by R.N. 12:42:25 Alarms reviewed by R. N. 12:42:32 Right groin area was prepped with betadine and draped in sterile fashio n 12:42:44 Vital chart was started 12:42:45 Baseline sample Acquired. 12:42:52 Rhythm: sinus tachycardia 12:45:20 Lidocaine 1% 20ml vial added to field was administered by Vi Martinez RN; for local anesthetic; 12:45:31 Heparin Flush Bag (1000units/500ml NS) 2 bags added to field was administered by Vi Martinez RN; used for procedure; 12:45:42 Oxygen 3 l/min NC was administered by Vi Martinez RN; Per protocol; 12:57:27 --------ALL STOP TIME OUT------ 12:57:28 Final Timeout: patient, procedure, and site verified with staff and physician. All members of the team are in agreement. 12:57:31 Right groin site verified by team. 12:57:35 Physical assessment completed. ASA score P 3 - A patient with severe systemic disease as per Arnoldo Rodriguez MD. 12:57:38 Sedation plan: IV Moderate Sedation Versed, Fentanyl 12:58:02 Versed 0.5 mg I.V. was administered by Vi Martinez RN; for sedation; 12:58:56 Fentanyl 25 mcg I.V. was administered by Vi Martinez RN; for sedation; 13:00:12 Procedure started. 13:02:26 Terumo 5FR ANGLED 100CM glide catheter opened to sterile field. 13:02:27 Cook OLIVO 260 guide wire opened to sterile field. 13:02:32 Local anesthetic to right femoral artery with Lidocaine 1% by Arnoldo Rodriguez MD.INITIAL ACCESS ONLY 13:07:45 BasixTOUCH Inflation Syringe opened to sterile field. 13:07:49 Versed 0.5 mg I.V. was administered by Vi Martinez RN; for sedation; 13:08:06 Fentanyl 25 mcg I.V. was administered by Vi Martinez RN; for sedation; 13:11:09 Inflation number: 1 A Saber 2 x 4 x150 balloon was prepped and advanced across the Undefined1, then inflated to 0 KIMBERLEY for 0:00 (min:sec). 13:11:17 Heparin Bolus 5000 units I.V. was administered by Vi Martinez RN; for antiplatelet therapy; 13:13:07 Brenham Sci Choice PT Floppy J 300cm 0.014 guide wi opened to sterile field. 13:13:08 Terumo ANGLE 260cm glide wire opened to sterile field. 13:13:27 Terumo TORQUE DEVICE PLASTIC .038 opened to sterile field. 13:14:03 CXI SUPPORT .035 135 CM STR catheter opened to sterile field. 13:28:20 Versed 0.5 mg I.V. was administered by Vi Martinez RN; for sedation; 13:30:04 Inflation number: 2 The Saber 2 x 4 x150 balloon was reinflated across the Undefined1, to 0 KIMBERLEY for 0:00 (min:sec). 13:30:51 Inflation number: 3 A Saber 2.5 X 2 X 150 balloon was prepped and advanced across the Undefined1, then inflated to 0 KIMBERLEY for 0:00 (min:sec). 13:36:25 Nitroglycerin IC/IA 200 mcg I.A. was administered by Arnoldo Rodriguez MD; fo r vasodilation; 13:36:33 Fentanyl 25 mcg I.V. was administered by Vi Martinez RN; for sedation; 13:50:04 Fentanyl 25 mcg I.V. was administered by Vi Martinez RN; for sedation; 13:53:29 Nitroglycerin IC/IA 200 mcg I.A. was administered by Arnoldo Rodriguez MD; fo r vasodilation; 14:08:35 Versed 0.5 mg I.V. was administered by Vi Martinez RN; for sedation; 14:15:03 Inflation number: 4 A Saber 2.5 X 100 X 150 balloon was prepped and advanced across the Undefined1, then inflated to 0 KIMBERLEY for 0:00 (min:sec). 14:16:06 Nitroglycerin IC/IA 200 mcg I.A. was administered by Arnoldo Rodriguez MD; fo r vasodilation; 14:24:09 Nitroglycerin IC/IA 200 mcg I.A. was administered by Arnoldo Rodriguez MD; fo r vasodilation; 14:28:30 St Eamon 6Fr sheath opened to sterile field. 14:31:28 Fentanyl 25 mcg I.V. was administered by Vi Martinez RN; for sedation; 14:35:29 Versed 0.5 mg I.V. was administered by Vi Martinez RN; for sedation; 14:39:05 Procedure ended.(Physican Out) 14:39:24 Fluoroscopy time 12.10 minutes. 14:39:33 Fluoroscopy dose: 88 mGy 14:39:33 Flurop Dose total: 88 14:39:47 Contrast amount:Isovue 300 55ml. 14:39:49 Sharps counted by scrub and verified by R.N. 14:39:50 Insertion/operative site no bleeding no hematoma. 14:39:54 Post-op/insertion site Right Femoral artery dressed using a 4 x 4 and Tegaderm. 14:40:21 exoseal did not work manual pressure held 14:40:25 Cordis 6Fr Exoseal opened to sterile field. 14:41:25 Femstop placed over the right femoral artery at ? mmHg. Hemostasis achieved. 14:41:31 Post procedure: right dorsailis pedis pulse Doppler. 14:41:33 Post procedure: left dorsailis pedis pulse Doppler. 14:41:36 Post procedure: right posterior tibial pulse Doppler. 14:41:39 Post procedure: left posterior tibial pulse Doppler. 14:41:49 Post procedure rhythm: atrial fibrillation 14:41:53 Post procedure instruction explained to patient.Patient verbalizes understanding. 14:45:24 Fentanyl 25 mcg I.V. was administered by Vi Martinez RN; for sedation; 14:55:19 Patient needs reinforcement of post procedure teaching. 14:55:20 Procedure and supply charges have been captured, reviewed, submitted an d are correct. 14:55:25 Report given to CVICU. 14:55:29 Patient transfered to CVICU with Bed. 14:57:50 Vital chart was stopped Intervention Summary Intervention Notes Time ActionType Lesion and Equipment Action# Pressure Duration Attributes Used 13:11:09 Inflate Undefined1 Saber 2 x 1 0 00:00 balloon 4 x150 balloon 13:30:04 Reinflate Undefined1 Saber 2 x 2 0 00:00 balloon 4 x150 balloon 13:30:51 Inflate Undefined1 Saber 2.5 3 0 00:00 balloon X 2 X 150 balloon 14:15:03 Inflate Undefined1 Saber 2.5 4 0 00:00 balloon X 100 X 150 balloon Device Usage Item Name Manufacture Quantity Catalog Number Hospital Part Current Mini mal Lot# / Charge Number Stock Stock Serial# Code Sterile Cardinal 1 [id number] [id number] 5 Angiographic Health Pack Bag Decanter Microtek 1 [id number] [id number] 45892 707545 5 Medical Inc. Terumo 5FR Terumo 1 [id number] 085271 50593 628831 4 ANGLED 100CM glide catheter Cook [facility] 1 [id number] 540684 027486 5 [id number] 260 guide wire BasixTOUCH Merit 1 [id number] 906631 225012 440973 5 [id number] Inflation Medical Syringe Saber 2 x 4 Cardinal 1 [id number] 464998 211317 5 x150 balloon Health Bren[employer] Sci Brenham 1 [id number] 820476 222240 333946 5 [id number] Choice PT Scientific Floppy J 300cm 0.014 guide wi Terumo ANGLE Terumo 1 [id number] 955539 440932 065269 5 260cm glide wire Terumo Brenham 1 TD01 555838 487291 598550 5 TORQUE Scientific DEVICE PLASTIC .038 CXI SUPPORT Cook Medical 1 [id number] 113983 265792 5 [id number] .035 135 CM STR catheter Saber 2.5 X Cardinal 1 [id number] 858530 055866 5 2 X 150 Health balloon Saber 2.5 X Cardinal 1 [id number] 519844 312622 5 100 X [address] [facility] [address] [place]amon 1 617161 691339 167674 5 [id number] sheath Cordis 6Fr Cardinal 1 [id number] 905666 238691 329461 10 [id number] [facility] Health Signature Audit Stewart Stage Time Signature Unsigned Intra-Procedure 08/14/2016 Yfn 2:57:48 PM Ngoc RT (R) (CV) Signatures Monitor : Yfn Signature : Ngoc RT Date : Time : [address] [id number]
--- NOTE | ~2016-08-12 | HEMODYNAMI ---
PATIENT:FRANK RUBIO MEDICAL RECORD: [id number] : [birth year] LOCATION[id number] ADMISSION DATE: 08/12/16 Generatedon:08/12/201616:50 Patient name: FRANK RUBIO Patient #: [id number] SSN : : 1930 Date of study: 08/12/2016 Page: Of Hemodynamic Procedure Report Patient Data Patient Demographics Procedure consent was obtained First Name: FRANK Gender: Female Last Name: JOANNE : 1930 Middle Initial: Loren Age: 86 year(s) Patient #: [id number] Race: Unknown Additional ID: [id number] Contact details Address: [address] [place] [address] [place]: [place] [facility] [place]: [address] Admission Admission Data Admission Date: 08/12/2016 Admission Time: 13:31 Room #: 2304 Procedure Procedure Types Cath Procedure Peripheral Cath Diagnostic Procedure Cath Peripheral Abd/Extremity Extremities Bilat Lower Extremity Procedure Description Procedure Date Procedure Date: 08/12/2016 Procedure Start Time: 15:42 Procedure Staff Name Function Arnoldo Rodriguez MD Performing Physician Yfn Grossman RT Scrub Ebonie Hoffmann RN Nurse Etta Grace RT Insurance Adviser Etta Grace RT Monitor Procedure Data Cath Procedure Fluoroscopy Diagnostic fluoroscopy Total fluoroscopy Time: 6.7 time: 6.7 min min Diagnostic fluoroscopy Total fluoroscopy dose: 266 dose: 266 mGy mGy Contrast Material Contrast Material Type Amount (ml) Isovue 300 48 Diagnostic catheters Device Type Used For End Catheter Placement Merit ULTRA BOLUS FLUSH 5Fr 65CM catheter Merit Impress KA2 5Fr 65CM catheter Procedure Medications Medication Administration Route Dosage Oxygen NC 3 l/min Heparin Flush Bag added to field 3 bags (1000units/500ml NS) Lidocaine 1% added to field 20 Versed I.V. 1 mg Fentanyl I.V. 50 mcg Fentanyl I.V. 50 mcg Versed I.V. 1 mg TPA 3 mg Fentanyl I.V. 100 mcg Heparin Drip I.V. drip 600 units/hr (27660zgdym/250 D5W) Activase(12.5mg/250 15 ml/hr NS) Heparin Flush Bag 30 ml/hr (1000units/500ml NS) Hemodynamics Rest Heart Rate: 102 (bpm) Snapshots Pre Cath Intra NCS Post Cath Vital Signs Time Heart Resp SPO2 NIBP (mmHg) Rhythm Pain Sedation Rate (ipm) (%) Status Level (bpm) 14:55:49 95 No Cuff NSR 0 (11) 10(A) , No pain 15:00:00 85 19 94 167/103(146) NSR 0 (11) 10(A) , No pain 15:05:00 98 21 94 Measuring NSR 0 (11) 10(A) , No pain 15:06:09 101 21 94 168/96(125) NSR 0 (11) 10(A) , No pain 15:11:08 113 22 96 Measuring NSR 0 (11) 10(A) , No pain 15:11:16 86 23 95 172/98(123) NSR 0 (11) 10(A) , No pain 15:15:30 85 13 92 166/91(134) NSR 0 (11) 10(A) , No pain 15:19:53 86 12 94 162/80(128) NSR 0 (11) 10(A) , No pain 15:24:09 77 12 94 157/84(127) NSR 0 (11) 10(A) , No pain 15:28:22 94 19 96 171/95(125) NSR 0 (11) 10(A) , No pain 15:32:45 86 16 94 159/88(140) NSR 0 (11) 10(A) , No pain 15:37:01 86 15 94 161/90(141) NSR 0 (11) 10(A) , No pain 15:41:11 89 18 95 164/97(137) NSR 0 (11) 10(A) , No pain 15:45:29 89 11 93 164/92(117) NSR 0 (11) 10(A) , No pain 15:49:45 90 10 94 161/85(142) NSR 0 (11) 9(A) , No pain 15:54:09 87 11 96 157/70(112) NSR 0 (11) 9(A) , No pain 15:58:29 89 12 96 158/80(116) NSR 0 (11) 9(A) , No pain 16:02:47 86 16 95 149/85(115) NSR 0 (11) 9(A) , No pain 16:07:05 87 12 96 151/77(110) NSR 0 (11) 9(A) , No pain 16:11:09 93 16 96 148/104(134) NSR 0 (11) 9(A) , No pain 16:15:23 86 14 94 161/86(134) NSR 0 (11) 10(A) , No pain 16:19:43 97 11 95 156/80(133) NSR 0 (11) 10(A) , No pain 16:26:04 79 13 91 Out of range NSR 0 (11) 9(A) , No pain 16:30:24 79 12 96 165/84(120) NSR 0 (11) 9(A) , No pain 16:34:42 95 13 97 159/94(115) NSR 0 (11) 9(A) , No pain 16:39:00 87 12 96 153/87(119) NSR 0 (11) 10(A) , No pain 16:43:14 97 11 97 162/92(135) NSR 0 (11) 10(A) , No pain 16:47:32 80 11 97 157/88(116) NSR 0 (11) 10(A) , No pain Medications Time Medication Route Dose Verified Delivered Reason Notes Effectiveness by by 15:13:50 Oxygen NC 3 l/min Ebonie Ebonie Per protocol Shun Hoffmann RN RN 15:14:05 Heparin Flush Bag added to 3 bags Ebonie Ebonie used for (1000units/500ml field Shun Hoffmann procedure NS) RN RN 15:14:14 Lidocaine 1% added to 20ml Ebonie Ebonie for local field vial Shun Hoffmann anesthetic RN RN 15:40:29 Versed I.V. 1 mg Ebonie Ebonie for sedation Shun Hoffmann RN RN 15:40:34 Fentanyl I.V. 50 mcg Beonie Ebonie for sedation Shun Hoffmann RN RN 15:45:07 Versed I.V. 1 mg Ebonie Ebonie for sedation Shun Hoffmann RN RN 15:45:48 Fentanyl I.V. 50 mcg Ebonie Ebonie for sedation Shun Hoffmann RN RN 16:16:28 TPA IA 3 mg Arnoldo Mclaughlin used for Michael Rodriguez MD procedure 16:18:30 Fentanyl I.V. 100 mcg Arnoldo Mclaughlin for sedation Michael Rodriguez MD MD 16:35:52 Heparin Drip I.V. 600 Arnoldo Ebonie for (83521aodku/250 drip units/hr Shun Rodriguez anticoagulation D5W) MD LI 16:36:42 Activase(12.5mg/250 I.A. via 15ml/hr Arnoldo Ebonie used for NS) right Shun Rodriguez procedure tdin RN catheter 16:37:12 Heparin Flush Bag via 30ml/hr Arnoldo Ebonie used for (1000units/500ml right Shun Rodriguez procedure NS) fani CONN RN sheath Procedure Log Time Note 13:55:50 Use device set IR Diagnostic 13:56:24 TUBING, CONTRAST INJCTN HI PRES opened to sterile field. 13:56:25 Cook DOC .035 guide wire opened to sterile field. 13:56:26 Micropuncture VSI 4FR kit opened to sterile field. 13:56:27 St Eamon 5FR Sheath opened to sterile field. 13:56:28 Sterile Angiographic Pack opened to sterile field. 13:56:30 Bag Decanter opened to sterile field. 13:56:31 Acist Manifold opened to sterile field. 13:56:32 Acist Hand Control opened to sterile field. 13:56:32 Acist Syringe opened to sterile field. 13:58:06 A [employer] ULTRA BOLUS FLUSH 5Fr 65CM catheter was advanced over the wire and used for . 14:40:53 Time tracking: Regular hours 14:42:08 Is patient on blood thinner?No 14:42:13 Patient diabetic? No. 14:42:25 Patient NPO since Breakfast. 14:42:41 Signed procedure consent form obtained from patient. 14:42:59 Snore? No 14:43:01 Snore? Yes 14:43:05 Sleep apnea? Yes 14:43:07 Deviated septum? No 14:43:09 Opens mouth fully? Yes 14:43:23 Sticks out tongue? Yes 14:43:29 Airway obstruction? No ? 14:43:34 Airway obstruction? No ? 14:43:41 Dentures? Yes ? 14:43:54 Previous problem with sedation/anesthesia? No ? 14:43:59 Patient not . Patient is over age 55. 14:48:04 Pre procedure: right posterior tibial pulse Doppler, all other distal pulses are absent 14:49:12 - 14:49:27 IV patent on arrival in left forearm with 0.9% NaCl at O. 14:50:04 Right groin area was prepped with chlora-prep and draped in sterile fashion 14:50:11 Alarms reviewed by Mamta Lino 14:50:12 Sharps counted by scrub and verified by Yocasta 14:50:14 - 14:54:58 Vital chart was started 15:03:59 Baseline sample Acquired. 15:04:00 Full Disclosure recording started 15:04:01 - 15:13:50 Oxygen 3 l/min NC was administered by Ebonie Hoffmann RN; Per protocol ; 15:14:05 Heparin Flush Bag (1000units/500ml NS) 3 bags added to field was administered by Ebonie Hoffmann RN; used for procedure; 15:14:14 Lidocaine 1% 20ml vial added to field was administered by Ebonie Hoffmann RN; for local anesthetic; 15:40:21 Physician arrived 15:40:29 Versed 1 mg I.V. was administered by Ebonie Hoffmann RN; for sedation; 15:40:34 Fentanyl 50 mcg I.V. was administered by Ebonie Hoffmann RN; for sedation; 15:41:31 --------ALL STOP TIME OUT------ 15:41:32 Final Timeout: patient, procedure, and site verified with staff and physician. All members of the team are in agreement. 15:41:46 Physical assessment completed. ASA score P 3 - A patient with severe systemic disease as per Arnoldo Rodriguez MD. 15:41:55 Sedation plan: IV Moderate Sedation Versed, Fentanyl 15:42:04 Procedure started. 15:42:08 Local anesthetic to right femoral artery with Lidocaine 1% by Arnoldo Rodriguez MD.INITIAL ACCESS ONLY 15:42:11 Arterial access obtained using ultrasound guidance. 15:45:07 Versed 1 mg I.V. was administered by Ebonie Hoffmann RN; for sedation; 15:45:48 Fentanyl 50 mcg I.V. was administered by Ebonie Hoffmann RN; for sedation; 15:50:27 Terumo ANGLE 260cm glide wire opened to sterile field. 15:52:28 Angiography was performed. 15:53:21 Terumo TORQUE DEVICE PLASTIC .038 opened to sterile field. 15:56:10 A [employer] Impress KA2 5Fr 65CM catheter was advanced over the wire and used for . 15:58:47 Cook OLIVO 260 guide wire opened to sterile field. 16:03:39 Terumo 5FR ANGLED 100CM glide catheter opened to sterile field. 16:05:13 CRAGG-DEANDRA 50cm infusion catheter opened to sterile field. 16:16:28 TPA 3 mg IA was administered by Arnoldo Rodriguez MD; used for procedure; 16:18:30 Fentanyl 100 mcg I.V. was administered by Arnoldo Rodriguez MD; for sedation; 16:20:32 Procedure ended.(Physican Out) 16:20:49 Fluoroscopy time 06.70 minutes. 16:20:54 Fluoroscopy dose: 266 mGy 16:20:54 Flurop Dose total: 266 16:21:01 Contrast amount:Isovue 300 48ml. 16:25:28 Procedure and supply charges have been captured, reviewed, submitted an d are correct. 16:25:33 Sharps counted by scrub and verified by R.N. 16:25:42 Post Procedure Pulses reassessed and unchanged 16:35:52 Heparin Drip (56818apqhw/250 D5W) 600 units/hr I.V. drip was administered by Ebonie Hoffmann RN; for anticoagulation; 16:36:42 Activase(12.5mg/250 NS) 15ml/hr I.A. via right groin catheter was administered by Ebonie Hoffmann RN; used for procedure; 16:37:12 Heparin Flush Bag (1000units/500ml NS) 30ml/hr via right groin sheath was administered by Ebonie Hoffmann RN; used for procedure; 16:50:20 Vital chart was stopped Device Usage Item Name Manufacture Quantity Catalog Number Hospital Part [facility] nimal Lot# / Charge Number Stock Stock Serial# Code TUBING, Merit 1 [id number] [id number] [id number] 5 CONTRAST Medical INJCTN HI PRES Cook DOC .035 Cook Medical 1 [id number] 861731 929314 5 [id number] guide wire Micropuncture VSI VASCULAR 1 7266V 921515 067371 [address] [facility] [facility] Eamon 1 549937 004165 852563 5 [id number] Sheath Sterile Cardinal 1 [id number] 628157 551330 5 Angiographic Health Pack Bag Decanter Microtek 1 2002S 334643 03917 403449 5 Medical Inc. Acist Manifold Acist 1 04868 845527 199518 935026 5 Medical Systems Inc Acist Hand Acist 1 13469 031268 231456 091521 5 Control Medical Systems Inc Acist Syringe Acist 1 90766 766832 539987 436425 20 Medical Systems Inc Merit ULTRA Merit 1 [id number]-CV 379221 302112 5 BOLUS FLUSH Medical 5Fr 65CM catheter Terumo ANGLE Terumo 1 AV1607 396182 603148 897921 5 260cm glide wire Terumo TORQUE [place] 1 TD01 311567 441486 317795 5 DEVICE PLASTIC Scientific .038 Merit Impress Merit 1 [id number] 419194 806042 5 KA2 5Fr 65CM Medical catheter Cook OLIVO 260 Cook Medical 1 A99569 639655 612696 5 5624053 guide wire Terumo 5FR Terumo 1 CG508 208581 93264 679714 4 ANGLED 100CM glide catheter ORIONAlexanderDEANDRA Ev3 1 24070-56 434726 578734 5 50cm infusion catheter Signature Audit [place] Stage Time Signature Unsigned Intra-Procedure 08/12/2016 Etta Grace 4:50:16 PM RT(R) Signatures Monitor : Etta Grace RT Signature : Date : Time : [address] [place] [address]
--- NOTE | ~2016-08-12 | CN ---
PATIENT NAME:FRANK RUBIO MEDICAL RECORD: [id number] : [birth year] LOCATION:D.CVID.CV04 ADMIT DATE: 08/12/16 ACCOUNT: [id number] CONSULTING PHYSICIAN: TOMI RIVERA MD REFERRING PHYSICIAN: RONALD PERERA DO DATE OF CONSULTATION: 08/13/2016 CONSULT REQUESTING PHYSICIAN: Ronald De La Cruz MD. REASON FOR CONSULTATION: PE critical care management. HISTORY OF PRESENT ILLNESS: Ms. Rubio is an 86-year-old female, now she is very sleepy and lethargic. The history was mainly taken by talking to the nursing staff as well as reviewing the patient's note. The patient was admitted yesterday through the ER with left lower extremity pain and cyanosis. She went to IR and they have suctioned thrombectomy and localized TPA was given as well as she is on heparin drip. Other workup shows that the patient has a small pulmonary embolism, but there was no deep venous thrombosis. REVIEW OF SYSTEMS: Mainly in the history of present illness. PAST MEDICAL HISTORY: 1. Atrial fibrillation. 2. Recurrent congestive heart failure. 3. Recent acute renal failure. 4. History of hypertension. 5. History of recent C. diff colitis. PAST SURGICAL HISTORY: 1. Cholecystectomy. 2. Tonsillectomy. 3. Breast surgery. 4. Now, she is status post suctioned thrombectomy and angiogram. CURRENT MEDICATIONS: She is on localized TPA drip. Also, she is on heparin drip. ALLERGIES: There are no known drug allergies. PERSONAL AND SOCIAL HISTORY: She is nonsmoker, nondrinker. FAMILY HISTORY: Noncontributory. PHYSICAL EXAMINATION: GENERAL: Now, the patient is lying comfortably in bed. She is very lethargic. VITAL SIGNS: The blood pressure is 134/62, pulse is 108, respirations 16, temperature 97.9, SPO2 is 94% on 2 liters nasal cannula. HEENT: Conjunctivae pink, sclerae nonicteric. NECK: Supple. No JVD. CHEST: The chest excursion is minimal on both bilateral crackles. No wheezing. HEART: Rate and rhythm irregular. Normal sound. No murmur. ABDOMEN: Soft. Bowel sounds present. No hepatosplenomegaly. RECTAL: Deferred. EXTREMITIES: No cyanosis, no clubbing, no pedal edema. SKIN: Warm. Normal turgor. CONSULT REPORT [id number] FRANK RUBIO CENTRAL NERVOUS SYSTEM: The patient is awake and alert, but she is very weak and lethargic. IMAGING: CTA of the chest showed small middle lobe emboli. There is bilateral small pleural effusion. There is atelectasis in the lower lobe. No consolidation as such. The ultrasound of the lower extremity was negative for DVT. The CT head showed some old chronic changes. LABORATORY DATA: CBC: The WBC is 14.6, hemoglobin is 12.1, hematocrit 40, the platelet count is 252. Chemistry: Sodium is 141, potassium 4.4, BUN is 14, creatinine 0.9. CK of 1372, MB ____. The troponin is 0.07. The proBNP is 7737. IMPRESSION: 1. Small right middle lobe pulmonary embolism. 2. Bilateral pleural effusions with elevated BNP, possible congestive heart failure. 3. Bibasilar atelectasis. 4. Bilateral pleural effusion. 5. Left ischemic foot secondary to cardiogenic thrombi. 6. Chronic atrial fibrillation. RECOMMENDATION: 1. Continue heparin. 2. Acapella q.2 hourly when awake. 3. Follow up labs and chest radiograph. 4. We will gently diurese. Dr. Levine, cardiology point of view consulted. Awaiting cardiac echo. Dr. De La Cruz, once again thanks for involving me in the care of Ms. Rubio. TRANSINT:[id number] Voice Confirmation ID: [id number] DOCUMENT ID: [id number] TOMI RIVERA MD CC: RONALD DE LA CRUZ MD [id number] DICTATION DATE: 08/13/168 MICA MINER BLASTING: 08/13/16 1712 ADM IN [facility] [address] [place] [address]
[2016-08-12 10:45] LABS: BASOPHILS 0.2 % (0.0-2.0); EOSINOPHILS 0.3 % (0-7); HEMATOCRIT 41.3 % (36.0-48.0); HEMOGLOBIN 12.7 g/dL (12-16); IMMATURE GRANULOCYTES 0.5 % (0-5); MCH 31.2 pg (26.0-34.0); MCHC 30.8 g/dL (31.0-37.0); MCV 101.5 fL (80.0-100.0); MEAN PLATELET VOLUME 9.2 fL (7.4-10.4); PLATELET COUNT 327 10x3/uL (130-400); RBC 4.07 10x6/uL (4.00-5.40); RDW 16.4 % (11.5-14.5); WBC 12.8 10x3/uL (4.8-10.8)
[2016-08-12 10:52] LABS: APTT 28.9 SECONDS (22.8-39.4); INR 1.17 (0.85-1.17); PROTIME 14.8 SECONDS (11.6-15.0)
[2016-08-12 11:01] LABS: ALBUMIN 2.9 g/dL (3.4-5.0); ANION GAP 10.9 mmol/L (8-16); BILIRUBIN - TOTAL 0.6 mg/dL (0.2-1.3); CALCIUM 8.5 mg/dL (8.5-10.1); CARBON DIOXIDE 32.9 mmol/L (21.0-32.0); CREATININE - SERUM 1.1 mg/dL (0.6-1.3); POTASSIUM - SERUM 4.8 mmol/L (3.5-5.1); PROTEIN - SERUM 6.6 g/dL (6.4-8.2)
--- NOTE | 2016-08-12 17:00 | NUR ---
REC'D PT FROM [facility] VIA STRETCHER. PT AAO X4. PT HAS NS INFUSING TO RIGHT AC, HEPARIN INFUSING TO RIGHT HAND, TPA AND HEPARIN INFUSING TO RIGHT LEG SHEATH. PT VERBALIZES UNDERSTANDING OF KEEPING BOTH LEGS STRAIGHT. NO C/O PAIN AT THIS TIME. VSS, WILL CONTINUE TO MONITOR PT.
[2016-08-12 17:50] LABS: BASOPHILS 0.3 % (0.0-2.0); EOSINOPHILS 0.5 % (0-7); HEMATOCRIT 38.4 % (36.0-48.0); HEMOGLOBIN 11.9 g/dL (12-16); IMMATURE GRANULOCYTES 0.4 % (0-5); LYMPHOCYTES 8.6 % (15-50); MCH 31.5 pg (26.0-34.0); MCV 101.6 fL (80.0-100.0); MEAN PLATELET VOLUME 9.3 fL (7.4-10.4); MONOCYTES 8.2 % (2-11); RBC 3.78 10x6/uL (4.00-5.40); RDW 16.5 % (11.5-14.5); WBC 11.7 10x3/uL (4.8-10.8)
[2016-08-12 18:01] LABS: PLATELET COUNT 258 10x3/uL (130-400)
--- NOTE | 2016-08-12 18:15 | NUR ---
CALLED DR. RIVERA TO INFORM OF CONSENT. "WILL SEE HER TOMORROW"
[2016-08-12 18:24] LABS: INR 1.19 (0.85-1.17)
[2016-08-12 18:25] LABS: APTT 55.1 SECONDS (22.8-39.4)
--- NOTE | 2016-08-12 19:00 | NUR ---
1900- RECEIVED REPORT ON PATIENT, ASSESSMENT COMPLETE PER FLOWSHEET, SEE FOR DETAILS. PATIENT IS ALERT AND ORIENTED, LUNG SOUNDS CLEAR. HR IRREGULAR, PATIENT IN CONTROLLED A-FIB. HAS HISTORY OF IT AND DOCTOR'S ARE AWARE. INCISION TO RIGHT GROIN WITH SHEATH IN PLACE. TPA AND HEPARIN GOING TO SHEATH. SITE IS C/D/I WITH NO BLEEDING OR HEMATOMA NOTED. RIGHT PEDAL PULSE CAN BE DOPPLERED AND FOOT IS WARM, LEFT PEDAL PULSE CANNOT BE FOUND AND LEG STARTS TO GET COOL AROUND LOPEZ AND DOWN, COLOR IS PALE, DOCTORS ARE AWARE. RIGHT AC AND RIGHT HAND PIV WITH NS AND HEPARIN GOING. SEE IV FLOWSHEET FOR DETAILS. 1999- NO CHANGES WITH PULSES IN LEGS. PATIENT CAN FEEL LEFT FOOT WHEN BEING TOUCHED. GROIN SITE IS WNL, NO BLEEDING OR HEMATOMA NOTED. 2099- LEFT FOOT DOES NOT SEEM DUSKY BEFORE AND LOWER LEG FEELS WARMER. STILL NO PULSE ABLE TO BE DOPPLERED. HAS BEEN WRAPPED IN BLANKET. RIGHT PEDAL PULSE DOPPLERED. GROIN SITE C/D/I. 2199- NO CHANGES IN PEDAL PULSES. LEG WRAPPED WITH WARM BLANKET. 2299- REASSESSMENT COMPLETE. NO CHANGES AT THIS TIME. PATIENT REPOSITIONED FOR COMFORT, REINFORMED TO KEEP LEG STRAIGHT WHILE SHEATH IS IN, PATIENT VERBALIZES UNDERSTANDING. GROIN SITE WNL, RIGHT PEDAL PULSE +, LEFT ABSENT. LEFT LEG WARMER TO TOUCH, COLOR SEEMS BETTER. 0000- NITRO PATCH CHANGED OUT. NO CHANGE WITH PEDAL PULSES. GROIN SITE C/D/I, NO BLEEDING OR HEMATOMA NOTED. 0100- REPOSISTIONED FOR COMFORT, NO CHANGES WITH PULSES OR GROIN SITE.
[2016-08-13] VITALS (29 sets, daily range): BP systolic 122–169; BP diastolic 59–98; Ht 162.6 cm; Wt 55.1 kg
[2016-08-13 00:27] LABS: BASOPHILS 0.2 % (0.0-2.0); EOSINOPHILS 0.7 % (0-7); HEMOGLOBIN 12.4 g/dL (12-16); IMMATURE GRANULOCYTES 0.5 % (0-5); LYMPHOCYTES 10.5 % (15-50); MCH 31.6 pg (26.0-34.0); MONOCYTES 7.9 % (2-11); NEUTROPHILS 80.2 % (40-80); PLATELET COUNT 265 10x3/uL (130-400); RBC 3.92 10x6/uL (4.00-5.40); RDW 16.5 % (11.5-14.5); WBC 12.2 10x3/uL (4.8-10.8)
[2016-08-13 00:35] LABS: INR 1.1 (0.85-1.17)
[2016-08-13 00:41] LABS: APTT 30.7 SECONDS (22.8-39.4)
--- NOTE | 2016-08-13 02:00 | NUR ---
PATIENT STATES HER LEG IS NOT HURTING BAD, RIGHT PULSE PRESENT, LEFT STILL ABSENT. LEFT POPLITEAL AND FEMORAL STILL PRESENT. GROIN SITE WNL, WITHOUT BLEEDING OR HEMATOMA. REPOSITIONED FOR COMFORT. VSS, WILL MONITOR. 0300- LEFT PEDAL PULSE ABSENT, RIGHT DOPPLERED. INCISION SITE WITHOUT BLEEDING/HEMATOMA 0400- NO CHANGES AT THIS TIME. 0500- PATIENT RESTING WITH EYES CLOSED. NO CHANGES FROM PREVIOUS PEDAL PULSES. RIGHT LEG SEEMS TO BE GETTING MORE COLOR AND WARMTH.
[2016-08-13 05:31] LABS: BASOPHILS 0.2 % (0.0-2.0); EOSINOPHILS 0.8 % (0-7); HEMATOCRIT 40.2 % (36.0-48.0); HEMOGLOBIN 12.2 g/dL (12-16); IMMATURE GRANULOCYTES 0.5 % (0-5); LYMPHOCYTES 7.2 % (15-50); MCHC 30.3 g/dL (31.0-37.0); MCV 102.3 fL (80.0-100.0); MEAN PLATELET VOLUME 9.3 fL (7.4-10.4); MONOCYTES 7.2 % (2-11); NEUTROPHILS 84.1 % (40-80); PLATELET COUNT 247 10x3/uL (130-400); RBC 3.93 10x6/uL (4.00-5.40); RDW 16.6 % (11.5-14.5)
[2016-08-13 05:52] LABS: INR 1.18 (0.85-1.17); PROTIME 14.9 SECONDS (11.6-15.0)
[2016-08-13 05:58] LABS: APTT 123.8 SECONDS (22.8-39.4)
--- NOTE | 2016-08-13 06:00 | NUR ---
LEFT PEDAL PULSE NOT FOUND VIA DOPPLER, RIGHT HAS PULSE PRESENT VIA DOPPLER. VSS, PATIENT RESTING COMFORTABLY.
[2016-08-13 06:16] LABS: ALBUMIN 2.6 g/dL (3.4-5.0); ALKALINE PHOSPHATASE 90 U/L (46-116); ALT (SGPT) 36 U/L (10-68); BILIRUBIN - TOTAL 0.65 mg/dL (0.2-1.3); CALCIUM 8.1 mg/dL (8.5-10.1); CARBON DIOXIDE 31.7 mmol/L (21.0-32.0); CHLORIDE - SERUM 102 mmol/L (98-107); CKMB 11.8 U/L (0.0-3.6); CREATININE - SERUM 0.9 mg/dL (0.6-1.3); MAGNESIUM - SERUM 1.9 mg/dL (1.8-2.4); PHOSPHOROUS 4.2 mg/dL (2.5-4.9); POTASSIUM - SERUM 4.4 mmol/L (3.5-5.1); PROTEIN - SERUM 6.2 g/dL (6.4-8.2); SODIUM 141 mmol/L (136-145); eGFR NON AFRICAN AMERICAN 62 mL/min (90-120)
[2016-08-13 06:22] LABS: CALC OSMOLALITY 282 mosm/kg (275-300); CREATINE KINASE 1372 UL (21-215); GLUCOSE 121 mg/dL (74-106); UREA NITROGEN 14 mg/dL (7-18)
[2016-08-13 06:23] LABS: TROPONIN-I 0.077 ng/mL (0.000-0.060)
--- NOTE | 2016-08-13 07:24 | HP ---
PATIENT: FRANK RUBIO MEDICAL RECORD: [id number] ACCOUNT: [id number] LOCATION:[facility] D.2304 : [birth year] ADMISSION DATE: 08/12/16 HISTORY AND PHYSICAL EXAMINATION HISTORY OF PRESENT ILLNESS: An 86-year-old female, who presented to the Emergency Room with left lower extremity pain, swelling, left foot cold to touch and cyanosis of the toes. PAST MEDICAL HISTORY: Significant for chronic AFib, recurrent CHF, recent acute renal failure and history of hypertension. PAST SURGICAL HISTORY: Cholecystectomy, tonsillectomy and breast surgery. CURRENT MEDICATIONS: As reviewed in the EHR. ALLERGIES: No known drug allergies. SOCIAL HISTORY: Lives in a senior facility with some assisted living, has caregiver present at her living status. She is , has had progressive decline since her passed. REVIEW OF SYSTEMS: GENERAL: No known change in weight or appetite. HEENT: No cephalgia, visual changes, tinnitus, epistaxis, or dysphagia. CARDIOVASCULAR: Chronic AFib, episodic RVR. Denies present chest pain. The ischemic-appearing left lower extremity, left foot cold to touch. PULMONARY: Denies hemoptysis, denies night sweats. GASTROINTESTINAL: Denies hematemesis, hematochezia, or melena. Did have recent episode of C. diff, status post completion of treatment with Flagyl. GENITOURINARY: Denies dysuria, denies change in frequency. MUSCULOSKELETAL: No acute changes. ENDOCRINE: Denies polyuria, polydipsia, or polyphagia. PHYSICAL EXAMINATION: VITAL SIGNS: Temperature 98.2, blood pressure is 176/91, heart rate 73, respirations 16 and O2 sat 97% on O2 nasal cannula at 2 liters. HEENT: Normocephalic and atraumatic. Eyes: Pupils are equally round and reactive. Ears: Canals patent. TMs are intact. Nose: Nares are patent without drainage. Throat: No erythema, no exudates. NECK: Supple. No lymphadenopathy and no JVD. HEART: Irregularly irregular. LUNGS: Clear to auscultation. Breathing is nonlabored. ABDOMEN: Soft and nontender. EXTREMITIES: Present times 4. Left foot is cool to touch. Gastroc tenderness. DIAGNOSTIC DATA: CTA revealed small pulmonary emboli. Lower extremity angiography revealed significant occlusion of left lower extremity. ASSESSMENT AND PLAN: 1. 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 2. Small pulmonary emboli. 3. Chronic atrial fibrillation. 4. Hypertension. The patient is admitted to the ICU, interventional radiology consulted, underwent intervention, catheter placement. Unable completely clear. HISTORY AND PHYSICAL [id number] FRANK RUBIO She did a TPA infusion and heparin drip started, close monitoring. Cardiology consulted, pulmonology consulted as well. 5. Recent Clostridium difficile. We will recheck stool for Clostridium difficile, treat accordingly. Supportive care. TRANSINT:[id number] Voice Confirmation ID: [id number] DOCUMENT ID: [id number] FELI PERERA DO at 0724 CC: [id number] DICTATION DATE: 08/12/161934 DYNAMIC BALANCER SET UP WORKER: 08/12/162101 ADM IN [facility] [address] [place] [address]
[2016-08-13 10:32] LABS: BASOPHILS 0.2 % (0.0-2.0); EOSINOPHILS 0.3 % (0-7); HEMOGLOBIN 12.1 g/dL (12-16); IMMATURE GRANULOCYTES 0.4 % (0-5); LYMPHOCYTES 5.1 % (15-50); MCH 31.3 pg (26.0-34.0); MCHC 30.3 g/dL (31.0-37.0); MCV 103.6 fL (80.0-100.0); MEAN PLATELET VOLUME 9.3 fL (7.4-10.4); MONOCYTES 6.8 % (2-11); NEUTROPHILS 87.2 % (40-80); PLATELET COUNT 252 10x3/uL (130-400); RBC 3.86 10x6/uL (4.00-5.40); RDW 16.8 % (11.5-14.5); WBC 14.6 10x3/uL (4.8-10.8)
[2016-08-13 11:00] LABS: INR 1.14 (0.85-1.17); PROTIME 14.5 SECONDS (11.6-15.0)
[2016-08-13 11:06] LABS: APTT 59.8 SECONDS (22.8-39.4)
--- NOTE | 2016-08-13 11:07 | NUR ---
Is the patient Alert and Oriented? Yes 0 * How many steps to enter\exit or inside your home? 0 0 * PCP DR. MARTINEZ 0 * Pharmacy [facility] 0 * Preadmission Environment Home Alone 0 * ADLs Independent 0 * Equipment Rolling Walker 0 * List name and contact numbers for known caregivers / representatives who currently or will assist patient after discharge: DAUGHTER: [phone] SON: GEN [phone] 0 * Community resources currently utilized Home Health Private Duty Care 0 * Please name any agencies selected above. [facility] 3 TIMES PER DAY 0 * Additional services required to return to the preadmission environment? Yes 0 * Can the patient safely return to the preadmission environment? No 0 * Has this patient been hospitalized within the prior 30 days at any hospital? Yes PATIENT CONTINUES TO LIVE AT [facility] ALONE WITH ASSISTANCE FROM HOME HEALTH AND [facility]. PATIENT'S DAUGHTER AND [id number] ASSIST NEEDED. PATIENT HAS ASSISTANCE WITH MEDICATION FROM [facility] AND SHE IS SUPPOSED TO RECEIVE NURSING FROM HOME HEALTH TO SET UP MEDS. PATIENT WAS TO RECEIVE PT/OT WELL. PATIENT'S PCP IS DR. PERERA. SHE GETS HER MEDS FROM [facility]. PATIENT HAS A WALKER THAT WAS HER 'S BUT HER FAMILY PLANS TO GET HER ONE. THERE ARE NO STEPS TO ENTER HER HOME. PATIENT'S FAMILY IS INTERESTED IN HER GOING TO ACUTE REHAB IF SHE WILL QUALIFY. THEY ARE LOOKING INTO MOVING HER TO [facility] AND HAVING HOME HEALTH TO FOLLOW. DAUGHTER: RAD [phone] SON: GEN [phone]
--- NOTE | 2016-08-13 14:52 | NUR ---
PT ARRIVED TO ROOM. IS CONVERSANT, BUT SOMEWHAT CONFUSED. ASKS THAT HER HAIR NOT GET GET WET. SHEATH IN PLACE AT RIGHT GROIN WITH HEPARIN INFUSING AT 500 UNITS/HR. TPA INFUSING IN CATHETER AT SHEATH AT 20ML/HR. NS INFUSING IN RIGHT AC WITH HYDROMORPHONE KNIT GOODS WASHER. PT 0N 3L NC. SATS 93%. HR 120'S A-FIB. DANIELLE CATHETER HAS DARK URINE. LEFT FOOT COLD TO TOUCH AND CYANOTIC.
--- NOTE | 2016-08-13 15:00 | NUR ---
FAMILY AT BEDSIDE. PT ALERT AND CONVERSANT. SOMEWHAT GROGGY, BUT RESPONDS APPROPRIATELY WHEN SPOKEN TO.
--- NOTE | 2016-08-13 15:10 | NUR ---
LULY COOPER IN ROOM TO SPEAK WITH FAMILY AT BEDSIDE. PT C/O PAIN, PULP DRIER FIRER BUTTON PROVIDED.
--- NOTE | 2016-08-13 15:57 | NUR ---
PT RESTING QUIETLY. AWAKENS EASILY. APPROPRIATE RESPONSES UPON QUESTIONING. DOPPLER OF RIGHT FOOT PRODUCES AUDIBLE PULSE. NO PALPABLE OR DOPPLER-ABLE PULSE IN LEFT FOOT.
--- NOTE | 2016-08-13 18:14 | NUR ---
FAMILY AT BEDSIDE. PT REMAINS FLAT. NO DISTRESS NOTED.
[2016-08-13 18:20] LABS: BASOPHILS 0.1 % (0.0-2.0); EOSINOPHILS 0.1 % (0-7); HEMATOCRIT 39.7 % (36.0-48.0); HEMOGLOBIN 11.9 g/dL (12-16); IMMATURE GRANULOCYTES 0.5 % (0-5); LYMPHOCYTES 3.8 % (15-50); MCH 31.4 pg (26.0-34.0); MCV 104.7 fL (80.0-100.0); MEAN PLATELET VOLUME 9.6 fL (7.4-10.4); MONOCYTES 8.2 % (2-11); NEUTROPHILS 87.3 % (40-80); PLATELET COUNT 228 10x3/uL (130-400); RBC 3.79 10x6/uL (4.00-5.40); WBC 17.4 10x3/uL (4.8-10.8)
[2016-08-13 18:26] LABS: INR 1.15 (0.85-1.17); PROTIME 14.6 SECONDS (11.6-15.0)
[2016-08-13 18:27] LABS: APTT 54.4 SECONDS (22.8-39.4)
--- NOTE | 2016-08-13 19:30 | NUR ---
REPORT RECEIVED AND CARE ASSUMED. ASSESSMENT COMPLETED PER FLOW SHEET. LEFT PEDAL PULSE IS ABSENT VIA DOPPLER. RIGHT PEDAL PULSE IS PRESENT VIA DOPPLER. RIGHT GROIN SHEATH DRESSING C/D/I. HEPARIN DRIP INFUSING AT 500 UNITS /HR AND TPA INFUSING INTO CATHETER INSIDE SHEATH AT 20/HR. CLEANER WINDOW WITH DILAUDID AT 0.2 EVERY 10 MIN. DANIELLE CATHETER PATENT WITH NAY URINE. AWAKE AND ALERT X 3. WILL CONTINUE TO MONITOR.
--- NOTE | 2016-08-13 21:00 | NUR ---
FAMILY AT BEDSIDE VISITING. NO DISTRESS NOTED.
[2016-08-14] VITALS (21 sets, daily range): BP systolic 129–176; BP diastolic 54–94
[2016-08-14 03:18] LABS: BASOPHILS 0.1 % (0.0-2.0); EOSINOPHILS 0.1 % (0-7); HEMATOCRIT 38.1 % (36.0-48.0); HEMOGLOBIN 11.4 g/dL (12-16); IMMATURE GRANULOCYTES 0.3 % (0-5); LYMPHOCYTES 3.8 % (15-50); MCH 31.1 pg (26.0-34.0); MCHC 29.9 g/dL (31.0-37.0); MCV 104.1 fL (80.0-100.0); MEAN PLATELET VOLUME 9.1 fL (7.4-10.4); MONOCYTES 7.2 % (2-11); NEUTROPHILS 88.5 % (40-80); PLATELET COUNT 207 10x3/uL (130-400); RBC 3.66 10x6/uL (4.00-5.40); RDW 16.9 % (11.5-14.5); WBC 14.7 10x3/uL (4.8-10.8)
[2016-08-14 03:26] LABS: ANION GAP 9.1 mmol/L (8-16); CARBON DIOXIDE 33.8 mmol/L (21.0-32.0); CREATININE - SERUM 0.9 mg/dL (0.6-1.3); POTASSIUM - SERUM 4.9 mmol/L (3.5-5.1)
[2016-08-14 03:31] LABS: INR 1.15 (0.85-1.17); PROTIME 14.5 SECONDS (11.6-15.0)
[2016-08-14 03:47] LABS: APTT 43.3 SECONDS (22.8-39.4)
[2016-08-14 12:02] LABS: BASOPHILS 0.1 % (0.0-2.0); EOSINOPHILS 0.1 % (0-7); HEMATOCRIT 37.2 % (36.0-48.0); HEMOGLOBIN 11.2 g/dL (12-16); IMMATURE GRANULOCYTES 0.3 % (0-5); LYMPHOCYTES 4.1 % (15-50); MCH 31.5 pg (26.0-34.0); MCHC 30.1 g/dL (31.0-37.0); MCV 104.5 fL (80.0-100.0); MEAN PLATELET VOLUME 9.3 fL (7.4-10.4); MONOCYTES 7.5 % (2-11); NEUTROPHILS 87.9 % (40-80); PLATELET COUNT 205 10x3/uL (130-400); RBC 3.56 10x6/uL (4.00-5.40); RDW 17.1 % (11.5-14.5); WBC 14.9 10x3/uL (4.8-10.8)
[2016-08-14 12:25] LABS: APTT 39.9 SECONDS (22.8-39.4); INR 1.18 (0.85-1.17); PROTIME 14.9 SECONDS (11.6-15.0)
--- NOTE | 2016-08-14 12:30 | NUR ---
PT TO IR VIA BED.
--- NOTE | 2016-08-14 13:13 | NUR ---
1300 PULSE CHECK NOT DONE. PT IS IN I.R.
--- NOTE | 2016-08-14 14:00 | NUR ---
PULSE CHECK NOT DONE. PT IN I.R.
--- NOTE | 2016-08-14 15:00 | NUR ---
SPOKE WITH DR. STRINGER ABOUT CONSULT. STATES "I'LL BE UP THERE IN A LITTLE BIT".
--- NOTE | 2016-08-14 15:06 | NUR ---
SPOKE WITH DR. DE LA CRUZ. REQUESTED TO CALL DR. DE LA CRUZ AT NUMBER DR. DE LA CRUZ PROVIDED.
[2016-08-14] MEDS ORDERED: LANOXIN125 MCG PO (15:28)
[2016-08-14] MEDS ORDERED: ZOLOFT50 MG PO (15:28)
[2016-08-14] MEDS ORDERED: K-DUR20 MEQ PO (15:29)
[2016-08-14] MEDS ORDERED: HYDROCODON-ACE1 EAC7 PO (15:30)
--- NOTE | 2016-08-14 19:25 | NUR ---
ASSESSMENT COMPLETED. SEE ASSESSMENT FLOWSHEET FOR DETAILS. ORIENTED X4. LEFT PEDAL PULSE AUDIBLE BY DOPPLER AND TOES RED IN COLOR AND WARM. RT GROIN FEM-STOP IN USE AND DECREASED PRESSURES TO 10MMHG. RT GROIN SITE C/D/I. UNCONTROLLED A-FIB ON THE MONITOR IN THE 110'S. WILL MONITOR.
--- NOTE | 2016-08-14 20:55 | NUR ---
HEPARIN GTT STARTED TO RT AC 20 PIV AT ORDERED RATE OF 1300 UNITS/HR.
--- NOTE | 2016-08-14 21:55 | NUR ---
SPOKE WITH DR. MARR ABOUT HR AND B/P AND HOME MEDS. ORDERS TO RESTART DIGOXIN AND LOPRESSOR. FAMILY MADE AWARE OF NEW ORDERS BEFORE THEY LEFT. WILL MONITOR.
--- NOTE | 2016-08-14 22:49 | NUR ---
JELLO GIVEN PER REQUEST, ATE 85%. SIPPING WATER PER REQUEST. IV ABX HUNG PER NEW ORDERS AND LASIX GIVEN. DENIES ANY ALLERGIES.
[2016-08-15] VITALS (24 sets, daily range): BP systolic 127–185; BP diastolic 54–86
--- NOTE | 2016-08-15 00:32 | NUR ---
OLD NITRO REMOVED FROM LEFT TOES AND PLACED NEW OINTMENT ON. LEFT PEDAL PULSES AUDIBLE BY DOPPLER. RT PEDAL PULSE PALPABLE. WILL MONITOR.
--- NOTE | 2016-08-15 01:30 | NUR ---
COUGHING AFTER DRINKING SIPS OF WATER ON HER OWN. "GOT CHOKED". SITTING UP AT 30 DEGRESS. RT GROIN SITE C/D/I, NO HEMATOMA OR BLEEDING NOTED. WILL MONITOR.
--- NOTE | 2016-08-15 03:00 | NUR ---
REASSESSMENT COMPLETED. SEE ASSESSMENT FLOWSHEET. LAB CALLED REGARDING TIMED PTT NOT YET DRAWN. WILL MONITOR.
[2016-08-15 03:58] LABS: BASOPHILS 0.1 % (0.0-2.0); EOSINOPHILS 0.4 % (0-7); HEMATOCRIT 36.7 % (36.0-48.0); IMMATURE GRANULOCYTES 0.3 % (0-5); LYMPHOCYTES 5.1 % (15-50); MCH 31.3 pg (26.0-34.0); MCV 104.3 fL (80.0-100.0); MEAN PLATELET VOLUME 9.4 fL (7.4-10.4); NEUTROPHILS 87.1 % (40-80); PLATELET COUNT 201 10x3/uL (130-400); RBC 3.52 10x6/uL (4.00-5.40); RDW 16.8 % (11.5-14.5)
--- NOTE | 2016-08-15 04:15 | NUR ---
PARTIAL BED BATH AND LINEN CHANGE COMPLETED. OLD SHEETS REMOVED FROM BEHIND HER. DANIELLE CATHETER CARE COMPLETED. TURNED AND REPOSITIONED TO RT SIDE. SIPS OF DIET COKE GIVEN INDEPENDENTLY. WILL MONITOR.
[2016-08-15 04:19] LABS: INR 1.22 (0.85-1.17); PROTIME 15.3 SECONDS (11.6-15.0)
[2016-08-15 04:23] LABS: APTT 130.7 SECONDS (22.8-39.4)
--- NOTE | 2016-08-15 04:27 | NUR ---
HEPARIN GTT STOPPED AT THIS TIME DUE TO PTT RESULTS.
[2016-08-15 04:45] LABS: ANION GAP 10.1 mmol/L (8-16); CALCIUM 7.9 mg/dL (8.5-10.1); CARBON DIOXIDE 32.3 mmol/L (21.0-32.0); CREATININE - SERUM 0.9 mg/dL (0.6-1.3); POTASSIUM - SERUM 4.4 mmol/L (3.5-5.1)
--- NOTE | 2016-08-15 04:55 | NUR ---
HEPARIN GTT RESTARTED AT 1100 UNITS/HR PER PROTOCOL.
--- NOTE | 2016-08-15 05:55 | NUR ---
FAMILY HERE FOR 0600 VISITATION. ICU DOORS OPENED. UPDATE GIVEN ABOUT IN AND OUT OF CONFUSION. REPORTS SHE DID THIS BEFORE THINKING IT IS RELATED TO PAIN MEDS. WILL MONITOR.
--- NOTE | 2016-08-15 09:10 | NUR ---
FAMILY AT BEDSIDE. PLANS TO GIVE COMMUNION THIS MORNING.
--- NOTE | 2016-08-15 12:00 | NUR ---
FAMILY AT BEDSIDE. UPDATE GIVEN.
--- NOTE | 2016-08-15 12:03 | NUR ---
PT THREW MEAL TRAY ON FLOOR. NOW STATES SHE IS "DISGUSTED WITH MYSELF" PT UPSET AND PREVIOUS STATE OF CONFUSION. REORIENTED AND ENCOURAGED PT.
--- NOTE | 2016-08-15 14:40 | NUR ---
RESTING EYES CLOSED EVEN UNLABORED RESP NOTED. C/L AND CUSTOM APPLICATOR BUTTON IN REACH.
--- NOTE | 2016-08-15 18:03 | NUR ---
PT TRANSFERRED TO ROOM 2302 VIA BED WITH MUSLIM STATUE IN HER HAND. FAMILY TO MEET IN THE NEW ROOM.
--- NOTE | 2016-08-15 18:37 | NUR ---
RECEIIVED PATIENT FROM [facility]. PATIENT AWAKE AND ALERT SKIN WARM AND DRY. SMALL DIARRHEA IN PAD. DAUGHTERS IN THE ROOM. HEAPRIN INFUSING INRIGHT ARM 800 UNITS AN HOUR. DILAUDID MERCHANDISE MARKER PUMP WITH NS IN 2 ND IV IN RIGHT ARM.
--- NOTE | 2016-08-15 19:18 | NUR ---
DR. MARR PAGED THROUGH A/S TO NOTIFY OF POSITIVE CDT.
--- NOTE | 2016-08-15 19:45 | NUR ---
SHIFT ASSESSMENT DOCUMENTED AT THIS TIME. TIME WAS ENTERED INCORRECTLY.
--- NOTE | 2016-08-15 19:45 | NUR ---
REPORT RECEIVED FROM COLOR MAKING SUPERVISOR NURSE. LOUD THUD HEARD COMING FROM PT'S ROOM. UPON ASSESSMENT PT FOUND ON THE FLOOR. BOTH IV TO RIGHT HAND AND RIGHT FA BOTH REMOVED WITH CATHETER INTACT. BLEEDING NOTED TO SITES. PT STATED SHE NEEDED TO USE THE BATHROOM SO SHE WAS GETTING UP TO GET TO THE BSC. BSC ON THE OTHER SIDE OF THE BED. SWELLING NOTED TO RIGHT SIDE OF FORHEAD. PT STATED SHE BARED HER WEIGHT ON THE TRASH CAN AND IT TIPPED OVER SO SHE HIT HER HEAD ON THE FLOOR. THREE SIDE RAILS WERE UP. BED ALARM WAS NOT ON, BUT CALL LIGHT WAS IN REACH. WITH THE HELP OF ANOTHER NURSE PT WAS ASSISTED TO BSC. LARGE FORMED BM NOTED. PT WIPED DOWN WITH BATH WIPES. NEW GOWN PLACED ON PT. AFTER 5 ATTEMPTS. 18G IV WAS STARTED TO RIGHT AC. PT MOVED TO ROOM THREE WHERE SO SHE COULD BE CLOSER TO NURSES STATION AND IN SITE. BED ALARM ON. SIDE RAILS UP X3. CALL LIGHT IN REACH. BED IN LOW POSITION. WILL CONT TO ASSESS.
--- NOTE | 2016-08-15 20:15 | NUR ---
DR. MARR PAGED TO NOTIFY OF FALL. AWAITING CALL BACK.
--- NOTE | 2016-08-15 20:40 | NUR ---
CALL RECIEVED FROM DR. MARR. REPORTED FALL AND SWELLING TO RIGHT FORHEAD. RECIEVED ORDER FOR CT OF THE HEAD. HEPRIN GTT PLACED ON HOLD UNTIL WE HAVE RESULTS OF CT. DR. MARR REQUESTED TO BE CALLED IF THERE WAS BLEEDING NOTED ON CT.
[2016-08-16] VITALS (24 sets, daily range): BP systolic 117–209; BP diastolic 52–114
--- NOTE | 2016-08-16 00:15 | NUR ---
DAUGHTER IN LAW, GARRETT CALLED FOR UPDATE ON PT.
--- NOTE | 2016-08-16 01:06 | NUR ---
RESULTS RECIEVED FROM CT SCAN. NO SIGNS OF ACUTE HEMORRHAGE NOTED PER REPORT.
--- NOTE | 2016-08-16 02:15 | NUR ---
PLACED ON BEDPAN. NO BM. PT STATED SHE ONLY HAD GAS. REPOSITIONED FOR COMOFORT. WILL CONT TO ASSESS.
--- NOTE | 2016-08-16 03:00 | NUR ---
REASSESSMENT COMPLETE. NO CHANGES NOTED.
[2016-08-16 04:31] LABS: BASOPHILS 0.1 % (0.0-2.0); EOSINOPHILS 0.1 % (0-7); HEMATOCRIT 35.4 % (36.0-48.0); HEMOGLOBIN 10.9 g/dL (12-16); IMMATURE GRANULOCYTES 0.3 % (0-5); LYMPHOCYTES 4.5 % (15-50); MCH 30.4 pg (26.0-34.0); MCHC 30.8 g/dL (31.0-37.0); MEAN PLATELET VOLUME 9.1 fL (7.4-10.4); PLATELET COUNT 200 10x3/uL (130-400); RBC 3.58 10x6/uL (4.00-5.40); RDW 15.6 % (11.5-14.5); WBC 12.1 10x3/uL (4.8-10.8)
[2016-08-16 04:40] LABS: ANION GAP 6.6 mmol/L (8-16); CALCIUM 8.3 mg/dL (8.5-10.1); CARBON DIOXIDE 33.5 mmol/L (21.0-32.0); CREATININE - SERUM 0.8 mg/dL (0.6-1.3)
[2016-08-16 04:44] LABS: POTASSIUM - SERUM 3.1 mmol/L (3.5-5.1)
[2016-08-16 04:50] LABS: MCV 98.9 fL (80.0-100.0)
[2016-08-16 04:53] LABS: APPEARANCE CLEAR (CLEAR); BILIRUBIN NEGATIVE (NEGATIVE); COLOR YELLOW (YELLOW); GLUCOSE NEGATIVE (NEGATIVE); KETONE NEGATIVE (NEGATIVE); LEUKOCYTE ESTERASE TRACE (NEGATIVE); NITRITE NEGATIVE (NEGATIVE); PROTEIN TRACE mg/dL (NEGATIVE); SPECIFIC GRAVITY 1.015 (1.005-1.020); UROBILINOGEN NORMAL (NORMAL)
[2016-08-16 05:21] LABS: BACTERIA FEW /hpf (NONE SEEN); EPITHELIAL CELLS OCC /hpf (0-5); GRANULAR CAST RARE /lpf (NONE SEEN); HYALINE CAST 0-5 /lpf (NONE SEEN); WAXY CAST RARE /lpf (NONE SEEN); WHITE CELLS - URINE 0-5 /hpf (0-5); YEAST >1+ /hpf (NONE SEEN)
--- NOTE | 2016-08-16 09:37 | NUR ---
Nutrition follow-up: Diet: Low sodium PO itnake ~50% of meals Labs reviewed + loose stool Wt: 142# RDN following.
[2016-08-16 10:28] LABS: INR 1.19 (0.85-1.17)
[2016-08-16 10:29] LABS: APTT 70.7 SECONDS (22.8-39.4)
--- NOTE | 2016-08-16 19:00 | NUR ---
REPORT RECEIVED AND ASSESSMENT COMPLETED. SEE FLOWSHEET.
--- NOTE | 2016-08-16 21:00 | NUR ---
2100 MEDS GIVE. LAB UNABLE TO DRAW PTT. WILL ATTEMPT TO DRAW.
--- NOTE | 2016-08-16 23:00 | NUR ---
REASSESSMENT COMPLETED. SEE FLOWSHEET. UNABLE TO DRAW PTT. 2ND LAB MEMBER ATTEMPTED AND SUCCEDED. WILL ADJUST HEPARIN BASED ON RESULTS.
[2016-08-17] VITALS (14 sets, daily range): BP systolic 122–172; BP diastolic 49–80
--- NOTE | 2016-08-17 01:26 | NUR ---
HEPARIN CHANGES TO 600 UNITS/HR AND 30 MIN PAUSE. NO OTHER CHANGES AT THIS TIME
--- NOTE | 2016-08-17 03:00 | NUR ---
REASSESSMENT COMPLETED. SEE FLOWSHEET. FOR FULL DETAILS.
[2016-08-17 04:47] LABS: BASOPHILS 0.1 % (0.0-2.0); EOSINOPHILS 2.1 % (0-7); HEMOGLOBIN 11.1 g/dL (12-16); IMMATURE GRANULOCYTES 0.5 % (0-5); LYMPHOCYTES 8.8 % (15-50); MCH 30.3 pg (26.0-34.0); MEAN PLATELET VOLUME 9.7 fL (7.4-10.4); MONOCYTES 10.9 % (2-11); NEUTROPHILS 77.6 % (40-80); PLATELET COUNT 210 10x3/uL (130-400); RBC 3.66 10x6/uL (4.00-5.40); RDW 15.6 % (11.5-14.5)
[2016-08-17 04:54] LABS: MCV 101.1 fL (80.0-100.0); WBC 7.7 10x3/uL (4.8-10.8)
[2016-08-17 04:58] LABS: INR 1.16 (0.85-1.17); PROTIME 14.7 SECONDS (11.6-15.0)
--- NOTE | 2016-08-17 05:00 | NUR ---
NO CHANGES IN STATUS AT THIS TIME. VSS. WILL CONTINUE TO MONITOR
[2016-08-17 05:07] LABS: APTT 78.3 SECONDS (22.8-39.4)
[2016-08-17 05:25] LABS: ANION GAP 3.7 mmol/L (8-16); CALCIUM 8.2 mg/dL (8.5-10.1); CARBON DIOXIDE 39.7 mmol/L (21.0-32.0); CREATININE - SERUM 0.9 mg/dL (0.6-1.3); MAGNESIUM - SERUM 2.4 mg/dL (1.8-2.4); POTASSIUM - SERUM 3.4 mmol/L (3.5-5.1)
--- NOTE | 2016-08-17 10:20 | NUR ---
REC'D ORDERS TO TRANSFER PT TO THE FLOOR. REPORT CALLED TO [place] ON MED 2.
--- NOTE | 2016-08-17 22:59 | NUR ---
PT LYING IN BED, HOB 40 DEGREES, EYES CLOSED, RESPIRATIONS EVEN AND UNLABORED. PT IS EASILY ROUSABLE TO VERBAL STIMULI, BUT MILDLY CONFUSED TO PLACE, TIME, AND SITUATION. PT DENIES ANY ACUTE NEEDS, AND IS IN NO ACUTE DISTRESS. PT DEMONSTRATES INCREASED FATIGUE AND GENERALIZED WEAKNESS AT THIS TIME. CONTINUE TO MONITOR CLOSELY. BED LOW, CALL LIGHT IN REACH, SIDE RAILS X 2.
--- NOTE | 2016-08-17 23:31 | NUR ---
B/P 189/97 - WILL GIVE PRN LABETOLOL
[2016-08-18] VITALS: BP 189/97
[2016-08-18 01:21] LABS: INR 1.08 (0.85-1.17); PROTIME 13.8 SECONDS (11.6-15.0)
--- NOTE | 2016-08-18 03:50 | NUR ---
PT INCONTINENT OF BOWEL, LOOSE, DARK BROWN, NO ODOR. PT HAS MENTIONED SEVERAL TIMES THIS SHIFT THAT SHE IS DYING AND THAT SHE NEEDS HER FAMILY BROUGHT IN. PT ALSO STATED THAT I NEED TO CALL [facility] IN [place] TO MAKE HER ARRANGEMENTS. I HAVE ASSURED PT THAT HER HEALTH IS CURRENTLY STABLE, AND THAT IF THERE ARE ANY CHANGES, I WOULD NOTIFY HER FAMILY IMMEDIATELY. PT DEMONSTRATES GREAT CONFUSION R/T TIME, PLACE, AND SITUATION. PTS LINEN, GOWN, AND BED CHANGED, PT RECEIVED BED BATH AT THIS TIME. CONTINUE TO MONITOR CLOSELY.
[2016-08-18 04:00] VITALS: BP 170/80
[2016-08-18 04:01] LABS: BASOPHILS 0.2 % (0.0-2.0); EOSINOPHILS 1.3 % (0-7); HEMATOCRIT 41.1 % (36.0-48.0); HEMOGLOBIN 12.7 g/dL (12-16); IMMATURE GRANULOCYTES 0.4 % (0-5); LYMPHOCYTES 9.1 % (15-50); MCHC 30.9 g/dL (31.0-37.0); MCV 100.2 fL (80.0-100.0); MEAN PLATELET VOLUME 9.5 fL (7.4-10.4); PLATELET COUNT 245 10x3/uL (130-400); RDW 15.4 % (11.5-14.5)
[2016-08-18 04:03] LABS: INR 1.08 (0.85-1.17); PROTIME 13.8 SECONDS (11.6-15.0)
[2016-08-18 04:04] LABS: ANION GAP 7.6 mmol/L (8-16); CALCIUM 8.6 mg/dL (8.5-10.1); CARBON DIOXIDE 36.8 mmol/L (21.0-32.0); CREATININE - SERUM 1.1 mg/dL (0.6-1.3); POTASSIUM - SERUM 3.4 mmol/L (3.5-5.1)
--- NOTE | 2016-08-18 07:00 | NUR ---
RECEIVED PT. IN BED WITH EYES CLOSED AT THE BEGINNING OF THIS SHIFT. HER SON IS AT BEDSIDE. VITAL SIGNS TEMP. 96.2, PULSE 76, RESP. 16, B/P 234/101, 02SAT. 96%. PT. IS IN ENTERIC ISOLATION PRECAUTIONS FOR C-DIFF. DANIELLE CATHETER IS PATENT AND DRAINING YELLOW URINE TO GRAVITY. TELEMENTRY IS ON AND WORKING PROPERLY. HEPARIN DRIP IS PATENT. NORMAL SALINE IS INFUSING VIA PUMP AT KVO RATE OF FLOW. WILL BE MONITORING HER AND ASSISTING PRN WITH ADL'S. MEDICATIONS TO BE DELIVERED PER ORDER.
[2016-08-18 08:00] VITALS: BP 234/101
--- NOTE | 2016-08-18 10:46 | NUR ---
AT 0950 B/P 208/95 AND PULSE 74. LABETALOL 10MG GIVEN PER IV PUSH. AT 1015 B/P 175/78 AND PULSE 63. LEFT HAND HAS IV THAT IS PATENT. WILL CONTINUE TO MONITOR. APTT ORDER PUT IN. SON AT BEDSIDE. NO SIGNS OF DISCOMFORT OR DISTRESS. CALL LIGHT IS IN REACH.
[2016-08-18 12:00] VITALS: BP 188/94
--- NOTE | 2016-08-18 13:12 | NUR ---
Nutrition follow-up: Diet: Low sodium PO intake ~50% average of last several meals Labs reviewed +BM, loose Wt: 138# Will continue to provide food choices with selective menus and honor food preferences within diet restrictions. RDN following.
--- NOTE | 2016-08-18 13:47 | NUR ---
WOUND CARE NOTIFIED BY NURSE'S AIDE THAT PT HEELS ARE "FEELING BOGGY". ON INSPECTION NOTED THE SAME. THERE IS NO OPEN AREA OR DISCOLORATION AND BOTH HEELS ARE BLANCHABLE. THEY ARE BEING BRIDGED AT ALL TIMES. WILL CONTINUE TO MONITOR.
--- NOTE | 2016-08-18 15:14 | NUR ---
B/P IS 150/74 AT 2:15PM. PT RESTING COMFORTABLY WITH EYES CLOSED IN BED. SON AT BEDSIDE WATCHING TV. CONTINUING TO MONITOR PT.
[2016-08-18 17:21] VITALS: BP 188/84
--- NOTE | 2016-08-18 19:30 | NUR ---
PT IS RESTING, EYES CLOSED. FAMILY AT BEDSIDE. PT HAS IV LEFT HAND RUNNING NS KVO AND BOAT WASHER. PT FAMILY STATES THAT "SHE HASN'T HAD MUCH PAIN AND HAS ONLY USED THE BOAT WASHER A COUPLE OF TIMES." PT PERIPHERAL PULSES ARE PALPABLE BUT WEAK. HEELS ARE REDDENED AND BRIDGED. PT FAMILY STATES NO NEEDS AT THIS TIME. BED LOW. CL IN REACH.
[2016-08-18 20:00] VITALS: BP 170/88
--- NOTE | 2016-08-18 20:55 | NUR ---
PT HS MEDS ADMINISTERED WITHOUT DIFFICULTY. PT TOOK MEDS WHOLE WITH WATER. PTT 86.9 REQUIRED NO CHANGE IN HEPARIN DRIP. PT IS AWAKE AND WATCHING TV AND DENIES NEEDS. WCTM. BED LOW. CL IN REACH.
--- NOTE | 2016-08-18 23:29 | NUR ---
PT IS RESTING, EYES CLOSED. RR ARE EVEN AND UNLABORED. WCTM. BED LOW. CL IN REACH.
[2016-08-19] VITALS: BP 182/88
--- NOTE | 2016-08-19 01:43 | NUR ---
NOTIFIED OF BP 182/88. ADMINISTERED 10MG LABETALOL. WILL REASSESS.
[2016-08-19 04:00] VITALS: BP 171/74
[2016-08-19 04:34] LABS: BASOPHILS 0.2 % (0.0-2.0); EOSINOPHILS 0.4 % (0-7); HEMATOCRIT 36.4 % (36.0-48.0); HEMOGLOBIN 11.4 g/dL (12-16); IMMATURE GRANULOCYTES 0.5 % (0-5); LYMPHOCYTES 13.8 % (15-50); MCH 30.6 pg (26.0-34.0); MCHC 31.3 g/dL (31.0-37.0); MEAN PLATELET VOLUME 9.7 fL (7.4-10.4); MONOCYTES 12.3 % (2-11); NEUTROPHILS 72.8 % (40-80); PLATELET COUNT 243 10x3/uL (130-400); RBC 3.73 10x6/uL (4.00-5.40); RDW 15.4 % (11.5-14.5)
[2016-08-19 04:37] LABS: MCV 97.6 fL (80.0-100.0); WBC 5.7 10x3/uL (4.8-10.8)
[2016-08-19 04:42] LABS: INR 1.23 (0.85-1.17); PROTIME 15.4 SECONDS (11.6-15.0)
--- NOTE | 2016-08-19 04:50 | NUR ---
PT BP IS NOW 171/70. WCTM.
[2016-08-19 04:59] LABS: ANION GAP 8.8 mmol/L (8-16); CALCIUM 8.1 mg/dL (8.5-10.1); CARBON DIOXIDE 35.2 mmol/L (21.0-32.0); CREATININE - SERUM 0.9 mg/dL (0.6-1.3)
[2016-08-19 05:00] LABS: MAGNESIUM - SERUM 1.6 mg/dL (1.8-2.4)
--- NOTE | 2016-08-19 06:21 | NUR ---
PT BP 191/88. LABETALOL ADMINISTERED. WILL REASSESS.
--- NOTE | 2016-08-19 07:58 | NUR ---
AM ROUNDING- RECEIVED REPORT FROM GLOBAL ACCOUNT MANAGER NURSE JEN MEJIA. PT IS LAYING IN BED ON BACK WITH EYES CLOSED RESTING. FAMILY MEMBERS AT BEDSIDE. ON MONITOR SHOWING SB, HR 56. IN CONTACT ISOLATION FOR C.DIFF. IV SEEN TO LEFT HAND WITH DILAUDID VIA PLASTER BLOCK LAYER PUMP GOING, NS RUNNING AT KVO (5), AND HEPARIN DRIP RUNNING AT 7CC/HR (WILL TX PER HEPARIN PROTOCOL ORDERED). DANIELLE CATHETER SEEN WITH YELLOW URINE. ON 02 AT 2L VIA NC. PT IS ON BEDREST CURRENTLY. NO NEED AT CURRENT TIME. WILL CONTINUE TO MONITOR AND CONTINUE WITH PLAN OF CARE.
--- NOTE | 2016-08-19 08:07 | NUR ---
CLINICAL TECHNOLOGIST NURSE JEN EMJIA STATED PTS IV HAS NS RUNNING AT KVO (5), HEPARIN DRIP AT 7CC/HR, AND A POLYETHYLENE COMBINER PUMP WITH DILAUDID HOOKED TO SAME IV THAT IS CONNECTED TO THE Y-SITE (HEPARIN AND POLYETHYLENE COMBINER PUMP) I STATED THAT HEPARIN IS SUPPOSE TO BE RUNNING BY ITSELF. JEN MEJIA STATES THAT SHE CAME IN WITH IV AND FLUIDS HOOKED LIKE THAT. ASKED DR. MARTINEZ WHO IS ON UNIT AND DR. MARTINEZ STATES SHE WILL HAVE TO HAVE ANOTHER IV SITE. JEN QUINTANILLA IS GOING IN ROOM TO ATTEMPT ANOTHER IV ON RIGHT ARM. WILL CONTINUE TO MONITOR.
[2016-08-19 08:13] VITALS: BP 154/81
--- NOTE | 2016-08-19 10:16 | NUR ---
CIARA JAY, VASCULAR ACCESS NURSE SITED ANOTHER IV TO PTS LEFT HAND. HEPARIN DRIP WAS HOOKED UP TO IV AND IS INFUSING ORDERED.
[2016-08-19 11:38] VITALS: BP 149/70
--- NOTE | 2016-08-19 12:10 | NUR ---
Patient Name: FRANK RUBIO Encounter No: [id number] : 1930 Primary Insurance: MEDICARE A & B Anticipated DC Date: Planned Disposition: Nursing Home Facility External Planned Provider: TO BE DETERMINED DCP follow-up note: CM SPOKE TO PT AND FAMILY IN ROOM REGARDING HOSPICE AND DISCHARGE PLANNING AND NEEDS. PT REPORTS SHE DOES NOT WANT CPR OR LIFE SUPPORT OF ANY KIND. PT DID NOT WISH FOR MEDICATION TO BRING HER BACK, CPR OR MECHANICAL SUPPORT. PT'S FAMILY IN ROOM REPORT THIS TO BE PT'S DECISION AND ARE IN AGREEMENT; PT HAS NOT BEEN HAPPY SINCE HER SPOUSE . PT'S FAMILY PT IS CONSIDERING HOSPICE BUT WANTS TO WAIT UNTIL HER CHILDREN RETURN FROM THE [facility] THEY ARE ON TO ASSIST WITH MEDICAL DECISION MAKING. PT'S OTHER CHILDREN IN ROOM REPORT SIBLING WILL RETURN FROM [facility] ON AUGUST 25. IMPORTANT MESSAGE FROM MEDICARE PROVIDED AND EXPLAINED. FAMILY REPORTS THAT PT IS NOT ABLE TO RETURN TO HER HOME AT THE [facility] AND THEY ARE CONSIDERING CORRECTION FACILITY WITH HOSPICE CARE. CM PROVIDED HOSPICE AGENCY INFORMATION WELL LOCAL CORRECTION FACLITY INFORMATION WITH CHOICE LETTER. FAMILY WILL CONSIDER OPTIONS AND NOTIFY CM AFTER DECISION IS MADE. PT'S CHILD WHO LIVES LOCALLY WILL RETURN FROM [facility] ON AUGUST 25 TO SPEAK TO PT AND OTHER SIBLINGS TO ASSIST WITH HOSICE AND CORRECTION FACILITY DECISION. CM TO FOLLOW AND ASSIST NEEDED. Teo Ramírez, CASE MANAGEMENT
[2016-08-19 15:20] VITALS: BP 152/67
--- NOTE | 2016-08-19 16:37 | NUR ---
PT LAYING IN BED ON BACK WITH EYES CLOSED RESTING. FAMILY MEMBERS ARE AT BEDSIDE. SON STATED TO ME THAT HE HAS [facility] INFORMATION TO GIVE TO SERVICE MECHANIC RYDER. I TOLD SON TO CHECK WITH RYDER IN THE MORNING WHEN RYDER IS BACK AT HOSPITAL. SON STATED OKAY. WILL CONTINUE TO MONITOR.
--- NOTE | 2016-08-19 18:27 | NUR ---
CALLED THE [facility] [place] AND SPOKE WITH THE ANSWERING SERVICE. INFORMED THEM THAT I NEEDED TO SPEAK WITH THE CLINICAL LABORATORY SCIENCE PROFESSOR REGARDING PTS TRANSITION PROGRAM MANAGER PUMP. ANSWERING BANQUET SUPERVISOR STATED THAT DR. MARR IS CLINICAL LABORATORY SCIENCE PROFESSOR AND WILL PAGE HIM TO CALL ME BACK. WILL AWAIT CALLBACK AND CONTINUE TO MONITOR.
--- NOTE | 2016-08-19 19:50 | NUR ---
ASSESSMENT DONE. PT SLEEPING, EASILY AWAKEN. PT A/O X3. DENIES NEEDS OR WANTS. PSYCHOLOGY INSTRUCTOR OF DILAUDID NOTED WITH 0.2MG Q10MIN PRN. LEFT PEDAL PULSE PALPABLE. BILATERAL LE ELEVATED ON PILLOW D/T WATER BLISTER ON LEFT HEEL. HEPARIN GTT INFUSING TO LEFT HAND AT 7ML/HR. DANIELLE CATH PATENT TO BSD. CALL LIGHT WITH IN REACH. WILL CONT. TO MONITOR.
[2016-08-19 20:00] VITALS: BP 153/87
[2016-08-20] VITALS: BP 162/76
--- NOTE | 2016-08-20 00:07 | NUR ---
PT SLEEPING. APPEARS COMFORTABLE. RESP EVEN AND UNLABORED. CALL LIGHT WITH IN REACH. WILL CONT. TO MONITOR.
--- NOTE | 2016-08-20 03:02 | NUR ---
PT LAYING IN BED WATCHING TV. A/O. C/O BEING UNCOMFORTABLE IN BED. NURSE AND COOLER TENDER ASSISTED PT WITH REPOSITIONING. PT C/O BEING COLD BUT STATES HER BLANKET IS TO HEAVY. ADJUSTED TEMP IN ROOM. CALL LIGHT WITH IN REACH. WILL CONT. TO MONITOR.
[2016-08-20 04:00] VITALS: BP 170/81
[2016-08-20 05:04] LABS: BASOPHILS 0.2 % (0.0-2.0); EOSINOPHILS 0.8 % (0-7); HEMATOCRIT 38.2 % (36.0-48.0); HEMOGLOBIN 11.8 g/dL (12-16); IMMATURE GRANULOCYTES 0.8 % (0-5); LYMPHOCYTES 15.6 % (15-50); MCH 30.5 pg (26.0-34.0); MCHC 30.9 g/dL (31.0-37.0); MCV 98.7 fL (80.0-100.0); MEAN PLATELET VOLUME 9.3 fL (7.4-10.4); MONOCYTES 9.6 % (2-11); PLATELET COUNT 261 10x3/uL (130-400); RBC 3.87 10x6/uL (4.00-5.40); RDW 15.5 % (11.5-14.5); WBC 6.7 10x3/uL (4.8-10.8)
[2016-08-20 05:15] LABS: ANION GAP 5.2 mmol/L (8-16); CALCIUM 8.5 mg/dL (8.5-10.1); CARBON DIOXIDE 36.6 mmol/L (21.0-32.0); CREATININE - SERUM 0.9 mg/dL (0.6-1.3); MAGNESIUM - SERUM 1.7 mg/dL (1.8-2.4); PHOSPHOROUS 3.2 mg/dL (2.5-4.9)
--- NOTE | 2016-08-20 05:15 | NUR ---
CARDING SUPERVISOR AT BEDSIDE TO OBTAIN VITALS, CALL LIGHT IN REACH. WILL CONTINUE WITH PLAN OF CARE.
[2016-08-20 05:16] LABS: POTASSIUM - SERUM 2.8 mmol/L (3.5-5.1)
--- NOTE | 2016-08-20 06:30 | NUR ---
2ND BAG OF K+ CL STARTED. PT TOLERATING WELL AT 75ML/HR. STATES 100ML/HR WAS BURNING HER HAND. PT A/O. DENIES CP OR SOB. DENIES NEEDS AT THIS TIME. CALL LIGHT WITH IN REACH.
--- NOTE | 2016-08-20 07:29 | NUR ---
CALLED THE [facility] TO SPEAK WITH POCKET OPERATOR REGARDING PTS POTASSIUM LEVEL AND HEPARIN DRIP. ANSWERING SOLE INKER STATES SHE WILL PAGE DR. MARR AND HAVE HIM CALL ME BACK. WILL AWAIT CALL BACK AND CONTINUE TO MONITOR.
--- NOTE | 2016-08-20 07:36 | NUR ---
DR. MARR ON UNIT. DR. MARR STATES DR. MARTINEZ WILL BE ON UNIT SOON. WILL AWAIT DR. MARTINEZ TO GET TO UNIT TO INFORM HIM OF PTS POTASSIUM AND ASK ABOUT HEPARIN DRIP.
--- NOTE | 2016-08-20 07:37 | NUR ---
0700- AM ROUNDING. RECEIVED REPORT FROM SENIOR VALIDATION ENGINEER NURSE NAY. PT IS CURRENTLY LAYING IN BED ON BACK WITH EYES CLOSED RESTING. DNR STATUS. ON MONITOR SHOWING SB, HR 59. ON BED REST ORDERED. ON 02 AT 2L VIA NC. IV SEEN TO LEFT HAND WITH NS RUNNING AT 30CC/HR, POTASSIUM RUNNING AT 75CC/HR (PTS POTASSIUM IS 2.8 THIS AM) ORDERED, AND EDUCATIONAL CONSULTANT PUMP WITH DILAUDID AT O.2MG [id number]. SECOND IV SEEN TO LEFT HAND WITH HEPARIN RUNNING AT 7CC/HR (PER DR. MARTINEZ YESTERDAY PT NEEDED A 24 HOUR WINDOW ON HEPARIN BEFORE D/C, ORDER IN CHART IS CURRENTLY D/C, AWAITING DR. MARTINEZ TO UNIT TO CLARIFY THIS). DANIELLE CATHETER SEEN WITH YELLOW URINE. WILL AWAIT DR. MARTINEZ TO GET TO UNIT AND CONTINUE TO MONITOR.
--- NOTE | 2016-08-20 07:46 | NUR ---
DR. MARTINEZ ON UNIT. INFORMED HIM OF PTS POTASSIUM LVL. I INFORMED DR. MARTINEZ OF HAVING POTASSIUM 10MEQ ORDERED IN PTS EMAR, I INFORMED DR. MARTINEZ THAT WE ARE TX PER PROTOCOL WITH IV POTASSIUM ORDERED, DR MARTINEZ STATES "OKAY THATS FINE". I ALSO INFORMED DR. MARTINEZ THAT PTS HEPARIN DRIP WAS D/C IN THE EMAR YESTERDAY, I ALSO INFORMED HIM OF PTS PTT LEVEL THIS AM (123.1). DR. MARTINEZ STATES "GO AHEAD AND LEAVE PT OFF HEPARIN". WILL DO ORDERED AND CONTINUE TO MONITOR.
--- NOTE | 2016-08-20 08:30 | NUR ---
D/C HEPARIN DRIP ORDERED (VERBALLY) BY DR. MARTINEZ. WILL CONTINUE TO MONITOR.
[2016-08-20 08:31] VITALS: BP 161/74
--- NOTE | 2016-08-20 09:40 | CN ---
PATIENT NAME:FRANK RUBIO MEDICAL RECORD: [id number] : [birth year] LOCATION:D.M2 D.2101 ADMIT DATE: 08/12/16 ACCOUNT: [id number] CONSULTING PHYSICIAN: FELI DE LA CRUZ MD REFERRING PHYSICIAN: FELI PERERA DO DATE OF CONSULTATION: 08/12/2016 CHIEF COMPLAINT: Pain. HISTORY OF PRESENT ILLNESS: I have personally discussed her case with her daughter and [id number]. Also with Dr. Rodriguez. I have reviewed the x-ray images with Dr. Rodriguez as well as with Dr. Perera. I have seen and examined the patient. I performed a bedside Doppler examination. I have seen the patient 3 times today initially on the angio table and then twice afterwards. The plan is to thrombolysis the patient's left lower extremity. She has had pain for 3 days. She still does have sensation in the left lower extremity. She is warm to the level of the knee on the left. She is able to wiggle her toes. She does not have a tight calf. She does not have Doppler signal distal to the popliteal artery; however. She is undergoing catheter-based thrombolysis. Palpation of the calf aggravates. Nothing alleviates. Symptoms are constant. They are worsening. Her symptoms have been present for 3 days. The patient had been on Coumadin. She has atrial fibrillation with rapid ventricular response, has congestive heart failure, reportedly with a low ejection fraction and has a pulmonary thromboembolism and for these reasons, I have consulted cardiology. I anticipate that she may have a jaziel course in the intensive care unit and pulmonary has been consulted as well. She is to undergo another angiogram with intervention tomorrow by Dr. Rashid, who is the interventional radiologist that will be working tomorrow. This is a consultation note addendum. For the typed portion of consult note including past medical and surgical history, allergies, current medications and social history, please see the chart. The patient was recently hospitalized with Coumadin toxicity. Coumadin was stopped due to Coumadin toxicity. The patient has had some generalized weakness over the past few weeks. The left lower extremity pain is new; however, and is only been present for 3 days. REVIEW OF SYSTEMS: No nausea, no vomiting, no fever, no chills, no chest pain and some shortness of breath, left lower extremity pain and left lower extremity pallor. PHYSICAL EXAMINATION: GENERAL: The patient does not appear chronically ill. VITAL SIGNS: Reviewed. The entire physical examination was performed in the presence of a female nurse. HEAD: External ears appear normal. EYES: Extraocular movements are intact. NECK: Trachea is midline. CHEST: No intercostal retractions. PULMONARY: Nonlabored, no stridor. ABDOMEN: Nontender. EXTREMITIES: As described above. A handheld Doppler examination of the left lower extremity performed after the catheter thrombolysis reveals that the common femoral artery has triphasic signal. There is a biphasic signal in the CONSULT REPORT [id number] FRANK RUBIO left superficial femoral artery as well as biphasic signal in the left profunda femoris artery. Distal to the popliteal artery, I detect no Doppler signal in an artery. BACK: Mild thoracic kyphosis present. LYMPHATICS: No lymphangitic streaking of the exposed extremities. PSYCHIATRIC: Anxious affect. IMPRESSION: Left lower extremity ischemia, likely due to some soft clot from a hypercoagulability or perhaps from an arterial embolus. PLAN: Continued catheter thrombolysis. Possible endovascular re-intervention tomorrow versus open intervention. TRANSINT:[id number] Voice Confirmation ID: [id number] DOCUMENT ID: [id number] FELI DE LA CRUZ MD at 0940 CC: [id number] DICTATION DATE: 08/12/162116 OPEN HEARTH MELTER: 08/13/16 0057 ADM IN [facility] [address] [place] [address]
--- NOTE | 2016-08-20 11:45 | NUR ---
Patient Name: FRANK RUBIO Encounter No: [id number] : 1930 Primary Insurance: MEDICARE A & B Anticipated DC Date: Planned Disposition: Snf Facility External Planned Provider: [facility], MEDICARE REHAB BED DCP follow-up note: CM RECEIVED MESSAGE ASKING TO SEE PT AND FAMILY IN ROOM. CM MET WITH PT AND FAMILY IN ROOM. FAMILY REPORTS WANTING REHAB REFERRAL SENT TO [facility]. PT AND FAMILY ALSO REQUESTED TO HAVE MANY HOSPICE MEET WITH THEM TO TELL THEM WHAT OPTIONS ARE AVAILABLE IF THEY CHOOSE HOSPICE. PT WILL DO WHAT THE FAMILY ASKS HER TO DO AND STILL WANTS TO WAIT TO MAKE ANY DECISIONS UNTIL HER OTHER SON ARRIVES FROM HIS [facility] TRIP. CM RECEIVED CALL FROM GERARDO OF [place], , WHO WAS AWARE OF THE REFERRAL AFTER SPEAKING TO THE FAMILY YESTERDAY. CM FAXED REFERRAL FOR REHAB SCREENING IN SNF TO [phone]. CM CALLED ANTONIO JAQUEZ OF [facility], ; ANTONIO WILL ASSESS PT AT ABOUT 1230 TODAY PER PT AND FAMILY REQUEST. CM FAXED REFERRAL TO MANY HOSPICE AT [phone]. CM WAITING HOSPICE EVALUATION AND INFORMATION TO BE PROVIDED TO PT/FAMILY TODAY. CM WAITING ADMISSION DETERMINATION FOR REHAB FROM [facility]. CM WAITING FAMILY DECISION REGARDING DISCHARGE PLAN. Teo Ramírez, CASE MANAGEMENT
[2016-08-20 12:47] VITALS: BP 173/59
--- NOTE | 2016-08-20 18:00 | NUR ---
PT LAYING IN BED WIT EYES OPEN TALKING ON CELLPHONE. NO NEED AT CURRENT TIME. WILL CONTINUE TO MONITOR.
[2016-08-20 18:07] VITALS: BP 169/67
--- NOTE | 2016-08-20 19:15 | NUR ---
ASSESSMENT DONE. PT SITTIN UP IN BED VISITING WITH FAMILY. A/O. NO DISTRESS NOTED. PT DENIES NEEDS AT THIS TIME. CALL LIGHT WITH IN REACH. WILL CONT. TO MONITOR.
[2016-08-20 22:28] VITALS: BP 145/88
[2016-08-21] VITALS: BP 156/74
--- NOTE | 2016-08-21 01:21 | NUR ---
PT A/O WATCHING TV. ASSISTED COURT CLERK WITH REPOSITIONING PT IN BED. PT REMAINS ON HER BACK WITH HOB ELEVATED AND LE ELEVATED ON PILLOW. PT REFUSES TO LEAN OR TURN TO ONE SIDE OR THE OTHER. RISKS OF PRESSURE ULCERS EXPLAINED TO PT. PT VERBALIZED UNDERSTANDING. CALL LIGHT WITH IN REACH. WILL CONT. TO MONITOR.
--- NOTE | 2016-08-21 04:16 | NUR ---
PT SLEEPING. NO DISTRESS NOTED. APPEARS COMFORTABLE. CALL LIGHT WITH IN REACH. WILL CONT. TO MONITOR.
[2016-08-21 05:07] VITALS: BP 192/112
[2016-08-21 05:31] LABS: BASOPHILS 0.2 % (0.0-2.0); EOSINOPHILS 1.2 % (0-7); HEMATOCRIT 39.5 % (36.0-48.0); HEMOGLOBIN 12.2 g/dL (12-16); IMMATURE GRANULOCYTES 0.5 % (0-5); LYMPHOCYTES 13.4 % (15-50); MCH 30.7 pg (26.0-34.0); MCHC 30.9 g/dL (31.0-37.0); MCV 99.2 fL (80.0-100.0); MEAN PLATELET VOLUME 9.7 fL (7.4-10.4); MONOCYTES 8.7 % (2-11); PLATELET COUNT 311 10x3/uL (130-400); RBC 3.98 10x6/uL (4.00-5.40); RDW 15.4 % (11.5-14.5)
[2016-08-21 05:36] LABS: WBC 9.4 10x3/uL (4.8-10.8)
[2016-08-21 05:46] LABS: ANION GAP 8.1 mmol/L (8-16); CALCIUM 8.6 mg/dL (8.5-10.1); CARBON DIOXIDE 32.1 mmol/L (21.0-32.0); CREATININE - SERUM 0.9 mg/dL (0.6-1.3); MAGNESIUM - SERUM 1.8 mg/dL (1.8-2.4); PHOSPHOROUS 2.8 mg/dL (2.5-4.9); POTASSIUM - SERUM 4.2 mmol/L (3.5-5.1)
--- NOTE | 2016-08-21 07:35 | NUR ---
PT IN BED RESTING WITH EYES CLOSED. NO DISTRESS NOTED. IV TO RIGHT HAND WITH NS AT KVO AND DULADID LENS AND FRAMES PRESCRIPTION CLERK 0.2/10/0. O2 AT 3 LITERS PER NC. DANIELLE INTACT WITH BLOODY TINGED URINE. SON IN ROOM WATCHING TV. SR UP X 2 CL IN REACH. LENS AND FRAMES PRESCRIPTION CLERK IN REACH. WILL CONT TO MONITOR.
[2016-08-21 08:08] VITALS: BP 159/85
--- NOTE | 2016-08-21 10:18 | NUR ---
RESTS IN ISOLATION ROOM. FAMILY AT BS. CALL LIGHT IN REACH. WILL MONITOR NEEDS.
[2016-08-21 11:57] VITALS: BP 191/89
--- NOTE | 2016-08-21 12:15 | NUR ---
ASSISTED PT TO BEDPAN HAD LARGE LOOSE BM. MEDICAL TECHNICIAN ASSISTANT ASSISTED IN PULLING PT UP IN BEDS AND REPOSTIONING, STILL REMAINED ON HER BACK PER HER REQUEST. SON IN ROOM. PT REFUSED BREAKAFST AND LUNCH. NO C/O PAIN AT THIS TIME, WILL MONITOR.
--- NOTE | 2016-08-21 15:07 | NUR ---
WAS CHANGING PT WHEN SAW BOTTOM OF HEELS AND THERE IS A HALF DOLLAR SIZE BLISTER INTACT TO BOTTOM OF HEEL. NO REDNESS TO SITE, OTHER HEEL LOOKS GOOD, WITH FIRM HEELS NO SIGN OF MUSHY. PLACED MIPILEX ON TOP OF BLISTER TO HELP PROTECT IT. AND PLACED HEEL PROTECTORS ON BOTH FEET. BUTTOCKS AND COCCYX SHOWS NO REDNESS OR SIGNS OF BREAKDOWN.
[2016-08-21 16:07] VITALS: BP 181/79
--- NOTE | 2016-08-21 19:30 | NUR ---
LYING IN BED, EYES CLOSED, RESP UNLAB WITH O2 @ 3L VIA NC IN PLACE, LEFT HAND WITH NS @ 30CC/HR VIA PUMP AND DILADID DIRECTOR OF PLAYER PERSONNEL FOR PAIN CONTROL WITH NO R/S NOTED AT SITE. ON ISOLATION PER PROTOCOL FOR CDIFF. TELEMETRY IN PLACE SHOWING HR SB. DANIELLE INTACT AND PATENT WITH YELLOW URINE NOTED IN BAG, LEFT FOOT WITH NITRO PASTE NOTED. HEEL PROTECTORS NOTED.HOB UP SR UP X2, C/L IN REACH. CONTINUE TO MONITOR.
--- NOTE | 2016-08-21 19:30 | NUR ---
LYING IN BED WITH HOB UP SR UP X2, C/L IN REACH, WATCHING TV. DENIES NEEDS AT THIS TIME. O2 @ 2L VIA NC IN PLACE, LEFT FA SL INTACT AND PATENT WITH NO R/S NOTED AT SITE. RESP EVEN UNLAB. DANIELLE CATH IN TACT AND PATENT WITH LIGHT COLORED URINE NOTED IN BAG.SCDS NOT IN USE. WEARS BIPAP AT NIGHT. CONTINUE TO MONITOR.
[2016-08-21 21:16] VITALS: BP 180/90
[2016-08-22 00:30] VITALS: BP 161/85
[2016-08-22 04:30] VITALS: BP 147/71
[2016-08-22 05:05] LABS: BASOPHILS 0.2 % (0.0-2.0); HEMATOCRIT 40.7 % (36.0-48.0); HEMOGLOBIN 12.5 g/dL (12-16); IMMATURE GRANULOCYTES 0.6 % (0-5); LYMPHOCYTES 8.6 % (15-50); MCH 30.5 pg (26.0-34.0); MCHC 30.7 g/dL (31.0-37.0); MCV 99.3 fL (80.0-100.0); MEAN PLATELET VOLUME 9.6 fL (7.4-10.4); MONOCYTES 9.1 % (2-11); NEUTROPHILS 80.5 % (40-80); PLATELET COUNT 295 10x3/uL (130-400); RDW 15.3 % (11.5-14.5); WBC 9.3 10x3/uL (4.8-10.8)
[2016-08-22 05:27] LABS: CALC OSMOLALITY 276 mosm/kg (275-300); CALCIUM 8.2 mg/dL (8.5-10.1); CARBON DIOXIDE 29.1 mmol/L (21.0-32.0); CHLORIDE - SERUM 101 mmol/L (98-107); GLUCOSE 112 mg/dL (74-106); POTASSIUM - SERUM 4.2 mmol/L (3.5-5.1); SODIUM 137 mmol/L (136-145); UREA NITROGEN 19 mg/dL (7-18)
[2016-08-22 05:28] LABS: CREATININE - SERUM 0.6 mg/dL (0.6-1.3); eGFR NON AFRICAN AMERICAN > 90 mL/min (90-120)
[2016-08-22 07:54] VITALS: BP 172/71
[2016-08-22 12:22] VITALS: BP 161/76
[2016-08-22 15:45] VITALS: BP 139/74
--- NOTE | 2016-08-22 19:30 | NUR ---
ASSESSMENT COMPLETE, DENIES NEEDS AT THIS TIME. HOBUP SR UP X2, C/L IN REACH, IN ISOLATION FOR CDIFF PER PROTOCOL. LEFT HAND IV WITH NS @ 30CC/HR VIA PUMP AND ICE CREAM DISPENSER DILAUDID @0.2MG EVERY 10MIN WITH NO LO IN USE AT BEDSIDE. DANIELLE INTACT AND PATENT WITH YELLOW URINE NOTED IN BAG, LEFT HEEL BLISTER NOTED, BIALAT PINK HEEL PROTECTORS IN PLACE UP ON PILLOW FOR C & C. RESP EVEN AND UNLAB WITH O2 @ 3L VIA NC IN PLACE. CONTINUE TO MONITOR.
[2016-08-22 20:00] VITALS: BP 174/76
[2016-08-23] VITALS: BP 169/83
--- NOTE | 2016-08-23 07:22 | NUR ---
AM ROUNDING- RECEIVED REPORT FROM JEN LORD (PASSENGER CAR CLEANING SUPERVISOR NURSE). PT IS CURRENTLY LAYING IN BED ON BACK WITH EYES CLOSED RESTING. FAMILY MEMBERS ARE AT BEDSIDE. PT IS DNR. IN CONTACT ISOLATION FOR C.DIFF. ON MONITOR SHOWING CONTROLLED A-FIB, HR 72 (JEN LORD STATES DR IS AWARE). ON 02 AT 3L VIA NC. ONE IV SEEN TO LEFT HAND WITH NS RUNNING AT 30CC W PRODUCTION SHIFT SUPERVISOR OF DILAUDID (0.2MG Q10MIN WITH NO LOCKOUT DOSE). SECOND IV SEEN TO LEFT HAND THAT IS CURRENTLY SALINE LOCKED. DANIELLE CATHETER WITH YELLOW URINE SEEN. HEEL PROTECTORS ON. PER REPORT PT IS ON ELIQUIS FOR DVT PREVENTION. NO NEED AT CURRENT TIME. WILL CONTINUE TO MONITOR AND CONTINUE WITH PLAN OF CARE.
[2016-08-23 08:50] VITALS: BP 159/71
[2016-08-23 12:33] VITALS: BP 136/63
--- NOTE | 2016-08-23 15:27 | NUR ---
Nutrition follow-up: Diet: low sodium PO intake is very poor at this time. Labs reviewed Wt: 129# Pt in isolation for CDiff Possible hospice soon Will continue to provide food choices with selective menus and honor food preferences. RDN following.
[2016-08-23 16:15] VITALS: BP 154/70
--- NOTE | 2016-08-23 16:50 | NUR ---
PT IS CURRENTLY SITTING UP IN BED EATING DINNER. [id number] AT BEDSIDE. NO NEED AT CURRENT TIME. WILL CONTINUE TO MONITOR.
[2016-08-23 20:00] VITALS: BP 159/74
--- NOTE | 2016-08-23 22:55 | NUR ---
NURSE ROUNDS 21:00 - PT AWAKE, ALERT, ORIENTED, FAMILY AT BEDSIDE. PT STATES SHE HAS NOT HAD A BM X 2 DAYS. DENIES ANY ACUTE NEEDS. CONTINUE TO MONITOR CLOSELY. BED LOW, CALL LIGHT IN REACH, SIDE RAILS X 2, HOB 30 DEGREES.
[2016-08-24] VITALS: BP 152/77
--- NOTE | 2016-08-24 02:55 | NUR ---
PT LYING IN BED, EYES CLOSED, RESPIRATIONS EVEN AND UNLABORED. PT EASILY ROUSABLE TO VERBAL STIMULI. CONTINUE TO MONITOR CLOSELY. BED LOW, CALL LIGHT IN REACH, SIDE RAILS X 2, HOB 30 DEGREES.
[2016-08-24 04:00] VITALS: BP 162/76
--- NOTE | 2016-08-24 05:34 | NUR ---
PT STARTED HAVING A CONSISTED DRY, HACKY COUGH DURING SLEEP. I GAVE THE PT WATER AND ELEVATED HER HOB TO 35 DEGREES. COUGHING HAS SUBSIDED. CONTINUE TO MONITOR CLOSELY.
[2016-08-24 05:48] LABS: BASOPHILS 0.2 % (0.0-2.0); EOSINOPHILS 1.6 % (0-7); IMMATURE GRANULOCYTES 0.7 % (0-5); LYMPHOCYTES 10.3 % (15-50); MCH 30.8 pg (26.0-34.0); MCHC 31.6 g/dL (31.0-37.0); MCV 97.7 fL (80.0-100.0); MEAN PLATELET VOLUME 9.6 fL (7.4-10.4); MONOCYTES 9.8 % (2-11); NEUTROPHILS 77.4 % (40-80); PLATELET COUNT 309 10x3/uL (130-400); RBC 3.89 10x6/uL (4.00-5.40); RDW 15.4 % (11.5-14.5); WBC 8.8 10x3/uL (4.8-10.8)
[2016-08-24 05:57] LABS: ANION GAP 9.3 mmol/L (8-16); CALCIUM 8.3 mg/dL (8.5-10.1); CREATININE - SERUM 0.8 mg/dL (0.6-1.3); POTASSIUM - SERUM 4.3 mmol/L (3.5-5.1)
--- NOTE | 2016-08-24 07:10 | NUR ---
RECEIVED REPORT. ASSUMED CARE OF PATIENT. NO FAMILY AT BEDSIDE. CALL LIGHT WITHIN REACH. PATIENT WITH EYES CLOSED, EASILY AROUSED. DENIES NEEDS AT THIS TIME. DRY COUGH NOTED. F/C PATENT. LOWER EXTREMITIES ELEVATED. NO DISTRESS.
[2016-08-24 07:54] VITALS: BP 142/53
[2016-08-24 11:46] VITALS: BP 126/69
--- NOTE | 2016-08-24 11:48 | NUR ---
ASSISTED PATIENT OFF OF BEDPAN, REPOSITIONED AT THIS TIME. NO DISTRESS. FAMILY AT BEDSIDE. CALL LIGHT WITHIN REACH.
--- NOTE | 2016-08-24 15:30 | NUR ---
PATIENT SITTING UP TO CHAIR AT BEDSIDE. FAMILY AT BEDSIDE WITH PATIENT. CALL LIGHT WITHIN REACH. NO DISTRESS. DENIES NEEDS AT THIS TIME.
[2016-08-24 15:43] VITALS: BP 144/67
--- NOTE | 2016-08-24 18:30 | NUR ---
RESTING WELL WITH EYES CLOSED. CALL LIGHT WITHIN REACH. NO DISTRESS. EASILY AROUSED. NO DISTRESS.
[2016-08-24 21:58] VITALS: BP 178/82
--- NOTE | 2016-08-24 22:49 | NUR ---
NURSE ROUNDS 21;00 - PT AWAKE, ALERT, ORIENTED, FAMILY AT BEDSIDE. PT HAS A DRY, HACKY, FREQUENT COUGH, AND NON-PRODUCTIVE. PT DENIES ANY ACUTE NEEDS. CONTINUE TO MONITOR CLOSELY.
[2016-08-25] VITALS: BP 147/79
--- NOTE | 2016-08-25 04:19 | NUR ---
PT LYING IN BED, HOB 30 DEGREES, EYES CLOSED, RESPIRATIONS EVEN AND UNLABORED. PT EASILY ROUSABLE TO VERBAL STIMULI. DAUGHTER AT BEDSIDE. CONTINUE TO MONITOR CLOSELY.
--- NOTE | 2016-08-25 07:26 | NUR ---
RECEIVED PT REPORT. NO OTHER NEEDS AT THIS TIME. WILL CONTINUE TO MONITOR WILL CONTINUE PLAN OF CARE.
[2016-08-25 07:55] VITALS: BP 172/67
--- NOTE | 2016-08-25 07:58 | NUR ---
PT IS ALERT. ASSESSMENT DONE PER FLOWSHEET. NO OTHER NEEDS AT THIS TIME. WILL CONTINUE TO MONITOR.
--- NOTE | 2016-08-25 09:51 | NUR ---
pt informed rn that pt retused treatment. pt is withdrawn today. also refused to eat any breakfast.
[2016-08-25 11:51] VITALS: BP 104/49
[2016-08-25 16:05] VITALS: BP 118/50
--- NOTE | 2016-08-25 17:22 | NUR ---
Patient Name: FRANK RUBIO Encounter No: [id number] : 1930 Primary Insurance: MEDICARE A & B Anticipated DC Date: 08-26-2016 Planned Disposition: Longterm Facility vs Inpatient hospice External Planned Provider: [facility] or Inpatient Hospice with [place] or [facility]. DCP follow-up note: CM RECEIVED CALL FROM DR. PERERA WHO STATED THAT HE HAS MET WITH PT'S CHILDREN, THEY HAVE DECIDED ON HOSPICE AND WOULD LIKE TO MEET WITH BOTH [facility] AND [facility]. CM SPOKE TO PT IN ROOM, WHO IS IN AGREEMENT WITH HOSPICE, BUT REPORTS SHE IS NOT ABLE TO GO HOME ALONE WITH HOSPICE SHE DOES NOT HAVE 24 HOUR CAREGIVERS AVAILABLE. CM PROVIDED AND DISCUSSED IMPORTANT MESSAGE FROM MEDICARE, PT STATED THAT HER CHILDREN WILL SIGN EVERYTHING AND MAKE THE FINAL DECISIONS FOR HER. CM MET WITH PT'S CHILDREN AT [facility], ALL AGREE THAT THEY WANT TO MEET WITH [facility] AND [facility], ONE TODAY AND ONE TOMORROW; FAMILY WILL THEN DECIDE ON DISCHARGE PLANNING / HOSPICE. FAMILY REPORTS THEY WOULD LIKE PT TO STAY INPATIENT HERE IF POSSIBLE PT CANNOT GO HOME ALONE. FAMILY WILL DISCUSS OPTIONS WITH BOTH HOSPICE AGENCIES AND MAKE A DECISION TOMORROW, 08-26-16. DANIEL CALLED JAZLYN WITH [facility], , WHO WILL HAVE CESILIA ARRIVE WITHIN THE HOUR. CM FAXED REFERRAL INFORMATION TO [phone]. JEN HERRING CONTACTED ANTONIO JAQUEZ OF [facility] WHO WILL MEET WITH FAMILY AT 0800 IN THE MORNING, 08-26-16. CM NOTIFIED FAMILY, PROVIDED AND DISCUSSED IMPORTANT MESSAGE FROM MEDICARE. CESILIA OF [facility] ARRIVED TO ASSESS PT AND MEET WITH FAMILY. DANIEL WAITING HOSPICE CONSULTS WITH [facility] AND [facility] AND FAMILY DECISION ON 08-26-16. Teo Ramírez, CASE MANAGEMENT
--- NOTE | 2016-08-25 19:36 | NUR ---
RESUMED CARE OF PT FROM DAY NURSE, BED IS LOW, SRX3, BOX ALARM IS ON, CALL LIGHT IN REACH, WILL CONTINUE TO MONITOR
[2016-08-25 22:01] VITALS: BP 160/76
--- NOTE | 2016-08-26 00:03 | NUR ---
STEEL CHECKER AT BEDSIDE TO OBTAIN VITALS, CALL LIGHT IN REACH. WILL CONTINUE WITH PLAN OF CARE.
[2016-08-26 01:01] VITALS: BP 158/76
--- NOTE | 2016-08-26 03:09 | NUR ---
ASSESSMENT COMPLETE, PT SLEEPING, CALL LIGHT IN REACH, WILL CONTINUE TO MONITOR
[2016-08-26 04:00] VITALS: BP 181/79
--- NOTE | 2016-08-26 07:29 | NUR ---
AM ROUNDING- RECEIVED REPORT FROM JEN ELAINE. PT IS CURRENTLY LAYING IN BED ON RIGHT SIDE WITH EYES OPEN RESTING. PT STATES " I HAVE NOT BEEN ABLE TO SLEEP ALL NIGHT, DR. MARTINEZ WAS SUPPOSE TO GIVE ME SOMETHING TO HELP ME SLEEP AND DIDN'T". PT IS DNR. IN CONTACT ISOLATION FOR C.DIFF. ON MONITOR SHOWING CONTROLLED A-FIB, HR 94 WITH PVCS. IV SEEN TO LEFT HAND WITH NS RUNNING AT 30CC/HR. ON 02 AT 4L VIA NC. DANIELLE CATHETER SEEN WITH YELLOW URINE. PER REPORT PT IS SUPPOSE TO GO HOME ON HOSPICE. NO NEED AT CURRENT TIME. WILL CONTINUE TO MONITOR AND CONTINUE WITH PLAN OF CARE.
[2016-08-26 08:46] VITALS: BP 142/112
--- NOTE | 2016-08-26 10:41 | NUR ---
INOCENCIA, CAPACITOR PACK PRESS OPERATOR ASSISTED ME IN REMOVING PTS DANIELLE CATHETER. REMOVED 9CC OF FLUID OUT OF BALLOON SYRINGE. DANIELLE CATHETER REMOVED WITH CATH TIP INTACT. TOLERATED WELL. WILL CONTINUE TO MONITOR.
[2016-08-26 12:00] VITALS: BP 153/67
--- NOTE | 2016-08-26 12:45 | NUR ---
Nutrition Follow Up: Chart reviewed. Pt had hospice eval this am. Pt continues in isolation for CDT. Pt is eating 21% meal avg on an AHA diet. Wt loss 3# since admit. I<O. Labs noted. Meds noted including Lasix, Zofran. Will change diet to regular to encourage po intake. RD following.
--- NOTE | 2016-08-26 16:02 | NUR ---
DR. MARTINEZ CALLED AND STATED TO D/C PTS ISOLATION BECAUSE C.DIFF CAME BACK NEGATIVE. WILL DO ORDERED AND CONTINUE TO MONITOR.
[2016-08-26 16:13] VITALS: BP 142/88
--- NOTE | 2016-08-26 18:06 | NUR ---
1615- CALLED CHRIS WITH INFECTION CONTROL AND STATED THAT DR. MARTINEZ STATES TO TAKE PT OFF ENTERIC ISOLATION FOR C.DIFF BECAUSE STOOL CAME BACK NEGATIVE FOR C.DIFF TODAY. CHRIS STATES TO NOT TAKE PT OFF ENTERIC ISOLATION UNTIL PT HAS COMPLETED ANTIBIOTICS ORDERED AND STOOLS ARE FORMED. WILL PASS THIS ALONG IN REPORT AND CONTINUE TO MONITOR.
--- NOTE | 2016-08-26 18:07 | NUR ---
PT LAYING IN BED ON BACK WITH EYES OPEN RESTING. DAUGHTER IS AT BEDSIDE. PT IS REQUESTING A BRIEF CHANGE BECAUSE SHE STATES SHE HAS URINATED IN IT. CHANGED PTS BRIEF REQUESTED. WILL CONTINUE TO MONITOR.
--- NOTE | 2016-08-26 19:10 | NUR ---
RESUMED CARE OF PT, 02-4L, IV-L. HAND-NS-30, A&O, BED IS LOW, SRX2, FAMILY AT BEDSIDE, CALL LIGHT IN REACH, WILL CONTINUE TO MONITOR
[2016-08-26 20:00] VITALS: BP 154/69
[2016-08-27] VITALS: BP 164/84
--- NOTE | 2016-08-27 00:19 | NUR ---
PIPEFITTER WELDER GIVING BATH/ LINEN CHANGE
--- NOTE | 2016-08-27 03:26 | NUR ---
ASSESSMENT COMPLETE PER FLOWSHEET, PT SLEEPING , CALL LIGHT IN REACH, WILL CONTINUE TO MONITOR
--- NOTE | 2016-08-27 06:30 | NUR ---
RECEIVED PT REPORT. WILL CONTINUE PLAN OF CARE. NO OTHER NEEDS AT THIS TIME. WILL CONTINUE TO MONITOR.
[2016-08-27] MEDS ORDERED: NORVASC2.5 MG PO (07:34)
[2016-08-27] MEDS ORDERED: LASIX20 MG PO (07:40)
[2016-08-27] MEDS ORDERED: MUCINEX600 MG PO (07:40)
[2016-08-27] MEDS ORDERED: FLORAJEN3 CAPS460 MG PO (07:41)
--- NOTE | 2016-08-27 07:51 | NUR ---
PT IS ALERT. ASSESSMENT DONE PER FLOWSHEET. NO OTHER NEEDS AT THIS TIME. WILL CONTINUE TO MONITOR.
[2016-08-27 08:00] VITALS: BP 158/58
--- NOTE | 2016-08-27 11:35 | NUR ---
Patient Name: FRANK RUBIO Encounter No: [id number] : 1930 Primary Insurance: MEDICARE A & B Anticipated DC Date: 08-27-2016 Planned Disposition: Long-Term Facility External Planned Provider: [facility]--MEDICARE BED DCP follow-up note: ON 08/26/16 FAMILY REQUESTED TO SPEAK WITH DANIEL REGARDING DC PLAN. DANIEL MET WITH PT AND HER FAMILY WHO INFORMED THAT FAMILY HAD VISITED [facility] AND [facility] AND HAD DECIDED TO DISCHARGE TO [facility]. STATED PLAN WAS TO THEN ADMIT TO HOSPICE SERVICES ONCE THEY WERE ADMITTED TO [facility]. DANIEL PLACED CALL AND SPOKE TO JAIMEE TO INFORM OF PT'S WISHES. JAIMEE STATED PT'S FAMILY HAD MET WITH HER EARLIER THAT DAY AND SHE WAS AWARE OF THE PENDING REFERRAL AND PT'S WISH FOR HOSPICE SERVICES ONCE SHE ARRIVES. DANIEL FAXED REFERRAL TO JAIMEE AT [facility] ON THE AFTERNOON OF 08/26/16 FOR REVIEW. AT 10 AM THIS MORNING CM RECEIVED CALL FROM KARENA AT [facility] WHO INFORMED THAT PATIENT WILL BE ACCEPTED TO FACILITY AND REQUESTED DC INFORMATION. CM FAXED DC MED LIST, ORDER, INSTRUCTIONS TO KARENA AT [facility]. KARENA STATED THAT FAMILY PLANS TO COME TO FACILITY THIS MORNING AND COMPLETE ADMISSION FORMS. SHE STATED ONCE ADMISSION PAPER-WORK WAS COMPLETED AT FACILITY SHE WOULD NOTIFY CM WHEN BED IS READY AND PATIENT CAN BE ADMITTED. DANIEL SPOKE WITH PATIENT AND FAMILY MEMBER AT BEDSIDE TO INFORM OF ABOVE. DANIEL ALSO INQUIRED WHICH HOSPICE AGENCY SHE HAS CHOSEN FOR HOSPICE SERVICES ONCE ADMITTED TO [facility] AND THEY INFORMED THAT THEIR CHOICE IS [facility]. CM INFORMED PT/FAMILY THAT WHEN CALL IS RECEIVED THAT BED IS AVAILABLE I WILL INFORM THEM AND ASSIST WITH ANY FURTHER DC NEEDS. Helen Kapoor, RN, CM
--- NOTE | 2016-08-27 13:03 | NUR ---
PT IS ALERT. NO SS OF DISTRESS AT THIS TIME. WILL CONTINUE TO MONITOR.
--- NOTE | 2016-08-27 14:11 | NUR ---
CM RECEIVED CALL FROM RAINA AT [facility] TO INFORM THAT FACILITY IS READY TO ACCEPT PATIENT FOR ADMISSION. PATIENT WILL REQUIRE NON-EMERGENT AMBULANCE TRANSPORTATION TO [facility] AND RN TO CALL AMBULANCE WHEN READY. NURSE TO CALL REPORT TO [facility] AT [phone].
--- NOTE | 2016-08-31 07:50 | DS ---
PATIENT:FRANK RUBIO :[birth year] MEDICAL RECORD: [id number] DISCHARGE SUMMARY ADMISSION DATE: 08/12/16 DISCHARGE DATE: 08/27/16 DATE OF ADMISSION: 08/12/2016. DATE OF DISCHARGE: 08/27/2016. 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 DISCHARGE DIAGNOSES: Occlusion of the common femoral artery, left lower extremity; pulmonary emboli; chronic atrial fibrillation; hypertension; Clostridium difficile colitis. CONSULTS: Interventional radiology, general surgery. HOSPITAL COURSE: The patient underwent catheterization by interventional radiology with stent placement, TPA, heparin, monitored in the ICU, gradually resolved, reperfusion noted. The patient had multiple episodes of diarrhea. Stool was tested for C. 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 diff testing yesterday. The patient has had significant decline since her , states that she does not want any further care. She was made a DNR and she states she is unable to go home to her prior living situation. She is not able to live independently. She states she wants hospice care. She had nurse case manager consulted. She had 2 different hospice companies, agreed to go to ____ with hospice. She is discharged to hospice in stable condition. VITAL SIGNS ON DISCHARGE: Temperature 96.4, blood pressure 164/84, heart rate 81, respirations 18, O2 sat is 99%. DISCHARGE MEDICATIONS: Per med rec, agree with assessments by consulting physicians, appreciate their care in this complex case. Please see chart for further details of this protracted case. TRANSINT:[id number] Voice Confirmation ID: [id number] DOCUMENT ID: [id number] FELI PERERA DO at 0750 CC: [id number] DICTATION DATE: 08/27/16 0748 BILLING SUPERVISOR: 08/28/16 0108 DIS IN 08/27/16 [place] [id number] [place] [id number]
== END 2016-08-27 14:57 | DRG 270 ==
LOC: D.ER 10:07 → D.ICU 13:31 → D.M2 13:31 → D.CVICU 08-13 14:59 → D.ICU 08-15 18:06 → D.M2 08-17 10:56
PROVIDERS: Emergency Medicine; Family Medicine; General Practice; Internal Medicine Pulmonary Disease; Surgery; ADMIT Family Medicine
PROC: 04CL3ZZ Extirpation of Matter from Left Femoral Artery, Percutaneous Approach (ICD-10-PCS; 2016-08-12)
PROC: 04CN3ZZ Extirpation of Matter from Left Popliteal Artery, Percutaneous Approach (ICD-10-PCS; 2016-08-12)
PROC: 04CL3ZZ Extirpation of Matter from Left Femoral Artery, Percutaneous Approach (ICD-10-PCS; 2016-08-12)
PROC: 3E05317 Introduction of Other Thrombolytic into Peripheral Artery, Percutaneous Approach (ICD-10-PCS; 2016-08-12)
PROC: 0T9B70Z Drainage of Bladder with Drainage Device, Via Natural or Artificial Opening (ICD-10-PCS; 2016-08-12)
PROC: B41G1ZZ Fluoroscopy of Left Lower Extremity Arteries using Low Osmolar Contrast (ICD-10-PCS; principal; 2016-08-12 14:00)
PROC: 047L3ZZ Dilation of Left Femoral Artery, Percutaneous Approach (ICD-10-PCS; 2016-08-13)
PROC: 04CL3ZZ Extirpation of Matter from Left Femoral Artery, Percutaneous Approach (ICD-10-PCS; 2016-08-14)
PROC: 047S3ZZ Dilation of Left Posterior Tibial Artery, Percutaneous Approach (ICD-10-PCS; 2016-08-14)
DX: I74.3 Embolism and thrombosis of arteries of the lower extremities (principal); I26.99 Other pulmonary embolism without acute cor pulmonale; I50.33 Acute on chronic diastolic (congestive) heart failure; G93.41 Metabolic encephalopathy; J15.6 Pneumonia due to other Gram-negative bacteria; N17.9 Acute kidney failure, unspecified; I13.0 Hypertensive heart and chronic kidney disease with heart failure and stage 1 through stage 4 chronic kidney disease, or unspecified chronic kidney disease; J98.11 Atelectasis; A04.7 Enterocolitis due to Clostridium difficile; I48.2 Chronic atrial fibrillation; N18.9 Chronic kidney disease, unspecified; I08.3 Combined rheumatic disorders of mitral, aortic and tricuspid valves; D64.9 Anemia, unspecified; E87.6 Hypokalemia

== ENCOUNTER 2017-05-01 19:34 | Emergency (ER) | payer MEDICARE, BC ==
[2016-08-13 09:13] VITALS: BMI 24.2
[~2017-05-01 19:34] MED LIST changes: +HYDROCODON-ACE1 EAC7 PO; +LASIX20 MG PO; +MUCINEX600 MG PO; +NORVASC2.5 MG PO; +ZOLOFT50 MG PO
== END 2017-05-01 21:30 | disposition home or self-care (01) ==
LOC: D.ER 19:34
DX: S09.90XA Unspecified injury of head, initial encounter (principal); W01.0XXA Fall on same level from slipping, tripping and stumbling without subsequent striking against object, initial encounter; Y93.89 Activity, other specified; Y92.012 Bathroom of single-family (private) house as the place of occurrence of the external cause